=== PATIENT | male | born 1935 | race Caucasian/White ===

== ENCOUNTER 2019-10-07 12:30 | Outpatient (RCR) | payer MEDICARE, SELFPAY ==
--- NOTE | 2019-07-06 14:36 | PTOPEVAL ---
Thank you for referring Armen Felipe to [facility]. He has been scheduled for Physical therapy 2x/week for 4 weeks. Please review, sign, date and return this plan of care JENNA. I agree with and certify that the following plan of care is medically necessary. Referring Physician Date *PT Outpatient Evaluation Start: 07/06/19 13:33 Freq: Status: Active Protocol: Document 07/06/19 13:35 MASON (Rec: 07/06/19 14:13 MASON [id number]) Therapy Assessment Status Assessment Status Assessment Status Evaluation Outpatient Past Medical History Neurological History Hx Cerebrovascular Accident (CVA) Yes: May 20, 2019 Cardiovascular History Hx Coronary Artery Bypass Graft Yes: 1992 Pain History History of Any Previous or Ongoing No Significant History Instance of Pain Evaluation Information Problem Diagnosis CVA Onset 05/20/19 Subjective Information Had a CVA on 05/20/19. He Query Text:As Reported By Patient/ participated in [facility] in [facility]. He has been home for a couple of weeks. No home health therapy. Feels as though his walking has recovered very well. He was cooking prior to the CVA and he no longer cooks because of lack of control of right side. No stairs throughout the home, but two to enter. States that he does them well. Pain Assessment Timing of Pain Assessment Timing of Pain Assessment Assessment Self Report Self Report Pain Level 0 Pain Score Pain Score 0: Self Report Lower Extremity Muscle Strength Testing General Lower Extremity Strength Reason Not Measured WNL/Left,WNL/Right Gross Lower Extremity Strength positive right Trendelenburg Ankle Strength Right Ankle Dorsiflexion Strength 4 Good Balance Assessment Boone Balance Assessment Sitting to Standing Independent w/out Hands Unsupported Stance Ability Safely- 2 minutes Sitting Unsupported, Feet on Floor Safely- 2 minutes Standing to Sitting Assist, Control w/Hands Transfer Ability Safely, Minimal Hand Use Unsupported Stance- Eyes Closed Safely, 10 seconds Unsupported Stance- Feet Together Independent, 1 minute Reaching Forward while Standing Safely, 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
--- NOTE | 2019-07-06 15:56 | OTOPEVAL ---
Thank you for referring this patient to [facility]. Patient will be seen for OP OT 2x/wk for 4 weeks. Please review, sign, date and return this plan of care JENNA. I agree with and certify that the following plan of care is medically necessary. Referring Physician Date *OT Outpatient Evaluation Start: 07/06/19 14:33 Freq: Status: Active Protocol: Document 07/06/19 14:38 KJL (Rec: 07/06/19 15:47 [id number]) Therapy Assessment Status Assessment Status Assessment Status Evaluation Outpatient Past Medical History Neurological History Hx Cerebrovascular Accident (CVA) Yes: May 20, 2019 Cardiovascular History Hx Coronary Artery Bypass Graft Yes: 1992 Pain History History of Any Previous or Ongoing No Significant History Instance of Pain Prior Level of Function Activity Level (Last 3 Months) Hand Dominance Right Activity of Daily Living Ability Independent Indoor/Home Mobility Independent Community Mobility Independent Stairs Ability Independent Functional Cognition (Planning, Shopping Independent , Taking Medications) Cooking Yes Cleaning No Laundry No Shopping Yes Driving Yes Home Setting Home Type House,Single Level Environmental Barriers Davidson, Carpet,Stairs, 2-4 Living Situation With Spouse Support Available Local Family Support Mobility Assistive Devices (Used Last 3 None Months) Bathroom Environment Bathtub, Standard,Tub/Shower, Door Bathing Equipment Grab Bars Toileting Equipment Raised Toilet Seat Grooming Activities of Daily Living None Devices Dressing Activities of Daily Living None Devices Eating Activities of Daily Living None Devices Prior Cognition/Communication Prior Communication Level No Impairment Prior Cognitive Function Able to Function Independently Prior Ability to Handle Finances Independent Comments Additional Prior Level of Function Pt reports lives with spouse Comments in a single level home and is independent prior to CVA with all ADLs and IADLs including cooking, driving, and shopping . Pain Assessment Timing of Pain Assessment Timing of Pain Assessment Assessment Self Report Self Report Pain Level 0 Pain Score Pain Score 0: Self Report Upper Extremity Range of Motion General Upper
--- NOTE | 2019-07-14 09:08 | PCPTNOTE ---
Patient called & cancelled scheduled appointment this date due to weather.
--- NOTE | 2019-07-14 10:21 | PCOTNOTE ---
Pt called and cancelled appt this date / too cold weather to come out.
--- NOTE | 2019-07-29 13:17 | PTOPEVAL ---
PHYSICAL THERAPY PLAN OF CARE UPDATE AND PROGRESS REPORT Thank you for referring this patient to [facility]. Please review, sign, date and return this plan of care JENNA. I agree with and certify that the following plan of care is medically necessary. Referring Physician Date Attending Provider: Robert Butler DO Therapy Assessment Status Assessment Status Assessment Status Re-evaluation Outpatient Past Medical History Neurological History Hx Cerebrovascular Accident (CVA) Yes: May 20, 2019 Cardiovascular History Hx Coronary Artery Bypass Graft Yes: 1992 Pain History History of Any Previous or Ongoing No Significant History Instance of Pain Problem Diagnosis CVA Onset 05/20/19 Subjective Information Had a CVA on 05/20/19. States Query Text:As Reported By Patient/ that he is pleased with how Family much more he is able to use his hand. He feels as though he always walked pretty well. No pain and no falls. Pain Assessment Self Report Pain Level 0 General Lower Extremity Strength Gross Lower Extremity Strength right LE: 4+/5 throughout; left LE: 5/5 throughout Balance Assessment Franco Balance Assessment Sitting to Standing Independent w/out Hands Unsupported Stance Ability Safely- 2 minutes Sitting Unsupported, Feet on Floor Safely- 2 minutes Standing to Sitting Assist, Control w/Hands Transfer Ability Safely, Minimal Hand Use Unsupported Stance- Eyes Closed Safely, 10 seconds Unsupported Stance- Feet Together Independent, 1 minute Reaching Forward while Standing Safely, 5 inches application support manager Object From Floor Independent/Safe Look Behind Shoulder - Standing Shifts Weight Well Turning 360 Degrees Turns slowly, but safely Unsupported Stance, Alternating Feet on (I)- 8 Steps in 20 secs Stair Unsupported Tandem Stance Small Step- 30 seconds Unilateral Leg Stance Lifts Leg/Holds > 3 secs FRANCO Balance Evaluation Total Score 48/56 Time Up Go Timed Up and Go Test 16seconds Assistive Devices None 5 Time Sit to Stand Time in Seconds 19.97seconds 5 Time Sit to Stand Comments 14.75 WITH armrests Query Text:Normative Data: If Greater Than 15 Seconds, 74% Increase Risk for Recurrent Falls Gait Pattern Assessment Gait Pattern Trendelenburg Gait Gait Pattern Observed Trunk Lateral Lean - Right Other Gait Observations able to walk on heels and toes with supervision to monitor balance 6 Minute Walk Total Distance (feet) 715 Number of Breaks During Test 1 6 Minute Gait Com
--- NOTE | 2019-07-29 14:43 | OTOPEVAL ---
OT re-eval summary 07/29/19 Thank you for referring this patient to [facility]Note 2[facility] Patient will be seen for OT 2x/week for four weeks. Please review, sign, date and return this plan of care JENNA. I agree with and certify that the following plan of care is medically necessary. Referring Physician Date Attending Provider: Robert Butler DO *OT Outpatient Re-Evaluation Evaluation Information Problem Diagnosis CVA Onset May, Additional Evaluation Detail Pt has been attending outpatient Occupational Therapy for the past 4 weeks. During OT, Patient worked on RUE hand, wrist, and arm strength, coordination, fine motor skills, and education on use of AE techniques in order to increase participation in functional ADLs and activities . Patient has been compliant in competing all HEP programs provided. Subjective Information Pt reports having increased Query Text:As Reported By Patient/ movement and strength in hand Family especially with being able to eat utilizing built up utensils, dressing including pulling pants up, zippers, and tying shoes. Patient reports wanting to continue to improve hand coordination in order to button shirts and pants better. Pain Assessment Timing of Pain Assessment Timing of Pain Assessment Assessment Self Report Self Report Pain Level 0 Pain Score Pain Score 0: Self Report Upper Extremity Range of Motion General Upper Extremity Range of Motion Reason Not Measured WNL/Left,WNL/Right Gross Upper Extremity Range of Motion RUE gross AROM is WNL. All Comments movements except for wrist. Wrist Range of Motion Right Wrist Flexion - Active 45 Wrist Extension - Active 45 Wrist Radial Deviation - Active 20 Wrist Ulnar Deviation - Active 20 Wrist Range of Motion Comments Patient increased wrist flexion from 30* to 45*, wrist extension from 25* to 45*, wrist radial deviation from 10 * to 20*, and ulnar deviation from 15* to 20*. Hand Biztalk Software Developer/Pinch Strength Assessment Hand Right Biztalk Software Developer Strength (lbs) 26 Lateral Pinch Str
--- NOTE | 2019-08-17 10:20 | PCPTNOTE ---
Patient called & cancelled scheduled appointment this date due to inclement weather.
--- NOTE | 2019-08-24 09:57 | PCPTNOTE ---
Patient called & cancelled scheduled appointment this date due to illness.
--- NOTE | 2019-09-09 13:46 | OTOPEVAL ---
OT RE-EVALUATION REPORT 09/09/2019 Thank you for referring this patient to [facility]. As described below, Armen is making progress toward strength, ROM, and coordination goals. Continued skilled OT is indicated 2x/week for 4 weeks. Please review, sign, date and return this plan of care JENNA. I agree with and certify that the following plan of care is medically necessary. Referring Physician Date Attending Provider: Robert Butler DO *OT Outpatient Re-Evaluation Re-Evaluation Information Problem Diagnosis s/p CVA Onset May, Additional Evaluation Detail Pt has been attending outpatient OT since 07/06/19. During OT, Patient worked on RUE hand, wrist, and arm strength, coordination, fine motor skills, and education on use of AE techniques in order to increase participation in functional ADLs and activities . Patient has been compliant in competing all HEP programs provided. Subjective Information Pt. reports improved Query Text:As Reported By Patient/ flexibility and strength of Family the right hand which has allowed for more independence with gross gripping tasks. He continues to have difficulty with buttoning shirts and pants, however he is now able to do some of them requiring less assist than a month ago. He continues to use his left hand for feeding. Pain Assessment Timing of Pain Assessment Timing of Pain Assessment Re-assessment Self Report Self Report Pain Level 0 Pain Score Pain Score 0: Self Report Upper Extremity Range of Motion General Upper Extremity Range of Motion Gross Upper Extremity Range of Motion Shoulder, elbow, and forearm Comments are WNL. Wrist Range of Motion Right Wrist Flexion - Active 45 Wrist Flexion - Passive 65 Wrist Extension - Active 50 Wrist Extension - Passive 60 Wrist Radial Deviation - Active 20 Wrist Ulnar Deviation - Active 20 Wrist Range of Motion Comments Wrist flexion remained at 45*, wrist extension increased from 45* to 50*, RD and UD remain WNL. Upper Extremity Muscle Strength Testing Elbow/Forearm Right Elbow Flexion Strength 4+ Good + Elbow Extension Stre
--- NOTE | 2019-09-09 14:29 | PTOPEVAL ---
PHYSICAL THERAPY DISCHARGE REPORT Thank you for referring this patient to [facility]. Armen will be discharged from PT at this time; however, I do recommend montioring blood pressure daily and reporting to already scheduled director religious education appointment. Please review, sign, date and return this plan of care JENNA. I agree with and certify that the following plan of care is medically necessary. Referring Physician Date Attending Provider: Robert Butler DO Neurological History Hx Cerebrovascular Accident (CVA) Yes: May 20, 2019 Cardiovascular History Hx Coronary Artery Bypass Graft Yes: 1992 Pain History History of Any Previous or Ongoing No Significant History Instance of Pain Evaluation Information Problem Diagnosis s/p CVA Onset May, Additional Evaluation Detail vitals: pulse 118bpm BP: 103/49 --reports he is feeling fine, but about 3 weeks ago he was taking a shower and felt as though he was going to pass out. He rested for an hour and recovered Subjective Information Armen feels as though he is Query Text:As Reported By Patient/ doing pretty well. 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 Self Report Pain Level 0 Pain Score Pain Score 0: Self Report Gross Lower Extremity Strength right LE: 4+/5 throughout; left LE: 5/5 throughout Balance Assessment Franco Balance Assessment Sitting to Standing Independent w/out Hands Unsupported Stance Ability Safely- 2 minutes Sitting Unsupported, Feet on Floor Safely- 2 minutes Standing to Sitting Assist, Control w/Hands Transfer Ability Safely, Minimal Hand Use Unsupported Stance- Eyes Closed Safely, 10 seconds Unsupported Stance- Feet Together Independent, 1 minute Reaching Forward while Standing Safely, 5 inches checkout supervisor Object From Floor Independent/Safe Look Behind Shoulder - Standing Shifts Weight Well Turning 360 Degrees Turns slowly, but safely Unsupported Stance, Alternating Feet on (I)- 8 Steps in 20 secs Stair Unsupported Tandem Stance Small Step- 30 seconds Unilateral Leg Stance Lifts Leg/Holds > 3 secs FRANCO Balance Evaluation Total Score 48/56 Time Up Go (TUG) 13seconds Assistive Devices None Comments improved from 16seconds 5 Time Sit to Stand Time in Seconds 16.72 5 Time Sit to Stand Comments 14.31 WITH armrests Query Text:Normative Data: If Greater with
--- NOTE | 2019-10-07 14:20 | OTOPEVAL ---
OCCUPATIONAL THERAPY RE-EVALUATION & DISCHARGE NOTE 10/07/2019 Thank you for referring this patient to [facility]. As described below, the patient appears to have reached a progress plateau with OT. D/C today with patient independent with HEP. Please review, sign, date and return this plan of care JENNA. I agree with and certify that the following plan of care is medically necessary. Referring Physician Date Attending Provider: Robert Butler DO *OT Outpatient Re-Evaluation Evaluation Information Problem Diagnosis s/p CVA Onset May, Additional Evaluation Detail Armen has been attending outpatient OT since 07/06/19. OT has been focusing on (R) UE strength and functional coordination for improved abilities with gripping, pinching, lifting, and carrying during ADLs. Subjective Information Patient reports improved Query Text:As Reported By Patient/ abilities with picking up Family objects, stating, I can berry picker anything I try to berry picker. He notes that he can now berry picker glasses of water and buttoning buttons. He continues to have difficulty trying to use a fork to feed himself with the right hand. Pain Assessment Timing of Pain Assessment Timing of Pain Assessment Re-assessment Self Report Self Report Pain Level 0 Pain Score Pain Score 0: Self Report Upper Extremity Range of Motion General Upper Extremity Range of Motion Reason Not Measured WNL/Right Upper Extremity Muscle Strength Testing Scapular/Shoulder Right Shoulder Flexion Strength 4- Good - Shoulder Extension Strength 4 Good Elbow/Forearm Right Elbow Flexion Strength 4+ Good + Elbow Extension Strength 4+ Good + Forearm Pronation Strength 4+ Good + Forearm Supination Strength 4+ Good + Wrist Strength Right Wrist Flexion Strength 4+ Good + Wrist Extension Strength 4- Good - Wrist Strength Comments Flexion improved from 4/5 and extension remained functional and slightly weak at 4-/5. He is currently independent with wrist strengthening with 2# free weight. Hand Python Architect/Pinch Strength Assessment Hand Right Python Architect Strength (lbs) 26.33 Lateral Pinch Strength (lbs) 6 Palmar Pinch Strength (lbs) 4.66 Tip Pinch Strength (lbs)
== END 2019-10-07 23:59 | disposition home or self-care (01) ==
LOC: ANHOT 12:30
PROVIDERS: PCP Internal Medicine; Visit Provider Internal Medicine
DX: I63.412 Cerebral infarction due to embolism of left middle cerebral artery (principal)
CPT/HCPCS: 36415; 71046; 80048; 97110; 97112; 97116; 97140; 97161; 97162; 97530

== ENCOUNTER 2019-11-25 14:07 | Outpatient (CLI) | payer MEDICARE, SELFPAY ==
--- NOTE | ~2019-11-25 | XR_ITS ---
EXAMINATION: XR chest 2V DATE: 11/25/2019 14:31 INDICATION: Other forms of dyspnea TECHNIQUE: PA and lateral views of the chest are obtained. COMPARISON: 09/16/2019 FINDINGS: There are small, stable pleural effusions, left greater than right. Stable cardiomegaly is noted. A mild diffuse interstitial pattern persists without significant change. There is no pneumotho rax. Median sternotomy wires are consistent with prior cardiac surgery. There is mild lumbar spondylo sis. IMPRESSION: 1. Cardiomegaly with mild pulmonary edema. 2. Small, stable pleural effusions. Reviewed, dictated and finalized at location B.
== END 2019-11-25 14:08 | disposition home or self-care (01) ==
PROVIDERS: PCP Internal Medicine; Visit Provider Internal Medicine Cardiovascular Disease
DX: R06.09 Other forms of dyspnea (principal); J90 Pleural effusion, not elsewhere classified; I51.7 Cardiomegaly
CPT/HCPCS: 71046

== ENCOUNTER 2019-12-02 13:33 | Emergency (ER) | payer MEDICARE, SELFPAY ==
--- NOTE | ~2019-12-02 | CT_ITS ---
EXAMINATION: CT brain wo con INDICATION: Headache COMPARISON: None TECHNIQUE: Standard unenhanced head CT. The dose-length product (DLP) was 605.33 mGy-cm. The mA was a djusted according to patient size. Iterative reconstruction technique was employed. FINDINGS: There is no acute intraparenchymal hemorrhage. No evidence of mass lesion. There is low att enuation with loss of caceres-white differentiation in the left frontal and parietal lobes. There is mil d periventricular and subcortical hypodensity probably related to small vessel ischemic disease. Ther e is mild prominence of the sulci and ventricles related to cerebral atrophy. Intracranial calcified cerebral atherosclerosis is noted. There are no extra-axial collections. There is no mass effect or m idline shift. The orbits and soft tissues are unremarkable. There is mild mucosal thickening of the paranasal sinuses. IMPRESSION: 1. Low attenuation in the left frontal and parietal lobes which could reflect subacute infarct. 2. Age related findings. Reviewed, dictated and finalized at location A. IMPRESSION: 1. Low attenuation in the left frontal and parietal lobes which could reflect s ubacute infarct. 2. Age related findings.
--- NOTE | ~2019-12-02 | XR_ITS ---
EXAMINATION: XR chest 1V portable EXAM DATE: 12/02/2019 15:36 INDICATION: Shortness of breath, generalized weakness. TECHNIQUE: Portable AP frontal chest x-ray was obtained. Comparison is made to prior examination from 11/25/2019. FINDINGS: There is chronic left pleural blunting. Sternotomy wires are present without findings to amaya ggest sternal dehiscence. The cardiomediastinal silhouette is prominent but magnified on this AP tech nique. Cardiac silhouette is stable in size compared to prior exam. No confluent consolidation or pne umothorax. The bones are osteopenic. There are bony degenerative changes. IMPRESSION: 1. No acute cardiopulmonary findings. Reviewed, dictated and finalized at location A.
[2019-12-02 13:41] VITALS: BP 128/68; PULSE 86; RESP 19; TEMP 36.5; O2SAT 100
--- NOTE | 2019-12-02 14:04 | ECG_ITS ---
Measurements Intervals [place] Rate: 80 P: SD: 0 QRS: -9 QRSD: 190 T: 152 QT: 464 QTc: 538 Interpretive Statements ATRIAL FIBRILLATION VENTRICULAR PREMATURE COMPLEX LEFT BUNDLE BRANCH BLOCK ABNORMAL ECG Electronically Signed On 12-02-2019 14:12:50 CDT by Darrel Wade D.O.
--- NOTE | 2019-12-02 14:12 | ED.GENADULT ---
HPI - General Adult General Chief complaint: Weakness Stated complaint: chest pain, sob Time Seen by Provider: 12/02/19 14:01 Source: patient and RN notes reviewed Mode of arrival: ambulatory Limitations: no limitations History of Present Illness HPI narrative: A 84 y/o male presents to the ED with worsening generalized weakness for the past couple days. He states that his lens grinder, Dr. Wade, increased his Lasix and started him on a new medication last week. He reports that he is unsure of what the new medication was but that it made him dizzy and he fell 4 days ago, so he stopped taking it which resolved his dizziness. He notes some associated SOB and mild nausea. He denies taking anything for his symptoms. He also denies any HI, LOC, fevers, cough, numbness, vomiting, diarrhea, or CP. MD complaint: Generalized weakness Onset (ago): day(s) (a couple) Pain Consistency: other (worsening) Associated symptoms: nausea/vomiting (no vomiting), shortness of breath and other (dizziness (resolved)) Treatments prior to arrival: none Related Data Home Medications Medication Instructions Recorded Confirmed apixaban 5 mg tablet 5 mg PO BID 07/10/19 11/25/19 atorvastatin 40 mg tablet 40 mg PO DAILY 07/10/19 11/25/19 doxazosin 8 mg tablet 8 mg PO DAILY 07/10/19 11/25/19 folic acid 20 mg capsule See Rx Instructions PO DAILY 07/17/19 11/25/19 garlic 300 mg PO DAILY 07/17/19 11/25/19 omega-3 fatty acids 500 mg PO DAILY 07/17/19 11/25/19 Allergies Allergy/AdvReac Type Severity Reaction Status Date / Time DEEPIKA Inhibitors Allergy Unknown Unknown Verified 11/25/19 13:16 Review of Systems Review of Systems: Narrative: CONSTITUTIONAL: Denies fever. Reports generalized weakness. CARDIOVASCULAR: Denies chest pain. RESPIRATORY: Denies cough. Reports dyspnea. GASTROINTESTINAL: Denies vomiting, or diarrhea. Reports some mild nausea. NEUROLOGIC: Denies HI, LOC, or numbness. Reports dizziness that has resolved. All systems reviewed & are unremarkable except as noted in HPI and below PMFSH Past Medical History Medical History (Updated 12/02/19 @ 15:58 by Rosangela Monge MD) Anemia ASHD (arteriosclerotic heart disease) Benign prostatic hyperplasia with lower urinary tract symptoms Bronchitis CAD (coronary artery disease), 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 CHF (congestive heart failure) Chronic systolic heart failure GARCIA (dyspnea on exertion) FH: coronary artery bypass surgery History of GI bleed History of heart attack History of inguinal hernia Hx of fracture of rib Hypertension Intermittent palpitations Iron deficiency anemia Mixed hyperlipidemia LEANN (obstructive sleep apnea) Other persistent atrial fibrillation Prediabetes Psoriasis Stage 1 chronic kidney disease Stroke Stroke due to embolism Vitamin B12 deficiency Surgical History Surgical History (Updated 12/02/19 @ 15:14 by Dipak Birmingham) Failed CABG (coronary artery bypass graft) History of inguinal hernia repair Hx of CABG Hx of cardiac cath Hx of heart artery stent Family History Family History Father Family history of diabetes mellitus in first degree relative Social History Social History (Updated 12/02/19 @ 15:14 by Dipak Birmingham) Smoking status: Never smoker Second hand tobacco smoke exposure: Yes Alcohol intake: never Gender identity (if verbalized by the patient): Male Exam Narrative: Exam Narrative: GENERAL: Awake, alert, conversant HEAD: Normocephalic, atraumatic. EYES: EOMI, conjunctiva clear ENT: Nares patent. Mucous membranes moist. NECK: Full range of motion CHEST: No respiratory distress, speaking in full sentences, mild tachypnea. HEART: Regular rate ABDOMEN: Non distended, non tender EXTREMITIES: Normal range of motion. No edema. SKIN: Warm, dry, no rash. Pallor. NEURO: No focal deficits. Alert and oriented x3. Course C
[2019-12-02 14:40] LABS: Basophils Percent Auto 0.5 % (0.2-1.2); Eosinophils Absolute Auto 0.3 K/mm3 (0-0.3); Hematocrit 31.3 % (42.0-52.0); Hemoglobin 10.5 g/dL (14.0-18.0); Immature Granulocyte Absolute 0.02 K/mm3 (0.00-0.031); Immature Granulocyte Percent A 0.3 % (0-0.5); Lymphocytes Absolute Auto 2.03 K/mm3 (0.9-3.2); Lymphocytes Percent Auto 27.7 % (18.3-44.2); Mean Corpuscular HGB Conc 33.5 g/dl (32-36); Mean Corpuscular Hemoglobin 35.4 pg (26-34); Mean Corpuscular Volume 105.4 fl (80-100); Mean Platelet Volume 12.3 fl (7.4-10.4); Monocytes Absolute Auto 0.6 K/mm3 (0.1-0.6); Monocytes Percent Auto 7.5 % (2.6-8.5); Neutrophils Absolute Auto 4.4 K/mm3 (1.3-6.7); Platelet Count Result 314 k/mm3 (150-375); Red Blood Count 2.97 M/mm3 (4.6-6.20); Red Cell Distribution Width 14.9 % (11.5-14.5); White Blood Count 7.3 K/mm3 (4.5-10.0)
[2019-12-02 14:45] VITALS: RESP 18
[2019-12-02 14:49] LABS: Alveolar/Arterial O2 Gradient 20.6 mmHg; Base Excess ABG 4.5 mEq/l (+/-2.0); Carboxyhemoglobin 0.2 % THb (0-2.0); Fractional Inspired Oxygen 21 %; HCO3 ABG 29.1 mEq/l (22.0-26.0); Methemoglobin ABG 0.1 %THb (0-1.5); Oxygen Content ABG 14.8 %vol (16.0-22.0); Oxygen Saturation ABG 95.8 % (95.0-100.0); Oxyhemoglobin 93.3 % THb (90.0-100.0); PCO2 ABG 43.5 mmHg (35.0-45.0); PO2 FiO2 Ratio Arterial Blood 3.67 %; Reduced Hemoglobin 6.4 %THb (0-5.0); Total Hemoglobin 11.2 g/dL (12.0-18.0); pH ABG 7.444 (7.350-7.450)
[2019-12-02 14:50] LABS: Device ROOM AIR; Modified Allen's Test Pass; Site Drawn LEFT RADIAL
[2019-12-02 14:54] LABS: Add Urine Microscopic? NO; Appearance Urine Clear (Clear); Bilirubin Urine Negative (Negative); Blood Urine Negative (Negative); Color Urine Yellow (Yellow); Glucose Urine UA Negative (Negative); Ketones Urine Negative (Negative); Leukocyte Esterase Ur Negative LEU/UL (Negative); Nitrate Urine Negative (Negative); Protein Urine Negative (Negative); Specific Grav Ur 1.013 (1.001-1.035); Urobilinogen Urine Negative mg/dL (<2.0)
[2019-12-02] MEDS: ONDANSETRON INJ 4 MG/2 ML VIAL IV PUSH (14:55)
[2019-12-02] MEDS: SODIUM CHLORIDE 0.9% IV 1,000 ML 999 ML IV CONT (14:55)
--- NOTE | 2019-12-02 15:04 | PC.NURSE ---
Called lab to add on CMP, LDH, C-reactive Protein, BNP.
[2019-12-02 15:16] LABS: Alanine Aminotransferase 15 U/L (4-50); Albumin Level 3.8 g/dL (3.5-5.1); Alkaline Phosphatase 124 U/L (38-126); Aspartate Amino Transferase 34 U/L (17-59); Bilirubin,Total 0.6 mg/dL (0.2-1.3); Blood Urea Nitrogen 38 mg/dL (9-20); CRP 2.1 mg/dL (<1.0); Calcium 8.9 mg/dL (8.4-10.2); Carbon Dioxide 30 mmol/L (22-30); Chloride 97 mmol/L (98-107); Estimated CRCL calculation 28 ml/min; Estimated Glomerular Filt Rate 39; Glucose 105 mg/dL (75-110); Lactate Dehydrogenase 498 U/L (313-618); Potassium 3.6 mmol/L (3.4-5.0); Sodium 137 mmol/L (137-145)
[2019-12-02 15:18] LABS: INR 1.4; Prothrombin Time 17.1 Seconds (11.1-14.7)
[2019-12-02 15:19] LABS: Partial Thromboplastin Time 35.9 SECONDS (22.3-36.8)
[2019-12-02 15:26] LABS: NT Pro B Type Natriuretic Pept 1580 PG/ML (5-100); Troponin I 0.016 ng/mL (0.000-0.034)
[2019-12-02 16:33] VITALS: BP 115/57; PULSE 81; RESP 27; O2SAT 98
== END 2019-12-02 16:38 | disposition home or self-care (01) ==
PROVIDERS: Emergency Provider Emergency Medicine; PCP Internal Medicine
DX: E86.0 Dehydration (principal); I25.10 Atherosclerotic heart disease of native coronary artery without angina pectoris; Z95.1 Presence of aortocoronary bypass graft; Z86.73 Personal history of transient ischemic attack (TIA), and cerebral infarction without residual deficits; I25.2 Old myocardial infarction; I11.0 Hypertensive heart disease with heart failure; I50.22 Chronic systolic (congestive) heart failure; D50.9 Iron deficiency anemia, unspecified; G47.33 Obstructive sleep apnea (adult) (pediatric); I48.19 Other persistent atrial fibrillation; Z79.01 Long term (current) use of anticoagulants; E53.8 Deficiency of other specified B group vitamins; Z95.5 Presence of coronary angioplasty implant and graft; I49.3 Ventricular premature depolarization; I44.7 Left bundle-branch block, unspecified
CPT/HCPCS: 36415; 36600; 70450; 71045; 80053; 81003; 82375; 82805; 83050; 83615; 83880; 84484; 85025; 85610; 85730; 86140; 87804; 93005; 96361; 96374; 99284; J2405; J7030

== ENCOUNTER 2020-01-08 13:04 | Outpatient (CLI) | payer MEDICARE, SELFPAY ==
[2020-01-08 13:33] LABS: Alanine Aminotransferase 17 U/L (4-50); Albumin Level 3.6 g/dL (3.5-5.1); Alkaline Phosphatase 126 U/L (38-126); Aspartate Amino Transferase 28 U/L (17-59); Bilirubin,Total 0.7 mg/dL (0.2-1.3); Blood Urea Nitrogen 29 mg/dL (9-20); Calcium 8.9 mg/dL (8.4-10.2); Carbon Dioxide 27 mmol/L (22-30); Chloride 105 mmol/L (98-107); Estimated Glomerular Filt Rate 48; Glucose 103 mg/dL (75-110); Potassium 4.1 mmol/L (3.4-5.0); Sodium 138 mmol/L (137-145)
--- NOTE | 2020-01-08 13:41 | ECHO_ITS ---
Patient Info Name: Armen Felipe Age: 84 years : 1935 Gender: Male Ht: 68 in Wt: 178 lbs BSA: 1.98 m2 HR: 75 bpm BP: 125 / 70 mmHg Heart Rhythm: Atrial Fibrillation Technical Quality: Good Exam Date: 01/08/2020 2:07 PM Exam Location: [facility] Pulmonary Patient Status: Outpatient Admit Date: 01/08/2020 Staff Ordering Physician: Darrel Wade DO Food Handler: Oriana Corea RDCS Attending Provider: Darrel Wade DO Referring Physician: Mauro GUEVARA; Exam Type: CA echo doppler color flow Study Info Indications - chronic systolic congestive heaRT failure Complete two-dimensional, color flow and Doppler transthoracic echocardiogram is performed. Summary 1. Left ventricular chamber dimension is moderately enlarged. 2. Left ventricular systolic function is severely reduced, estimated at 30-35%. 3. Left ventricular septal wall motion is abnormal with septal motion related to bundle branch block. 4. The left ventricular diastolic function is abnormal. 5. E/e' 22 is significantly elevated. 6. Patient is in atrial fibrillation. 7. Left atrial chamber dimension is severely enlarged. 8. Right atrial chamber dimension is mildly enlarged. 9. There is moderate aortic valve sclerosis. 10. There is mild aortic valve regurgitation. 11. The mitral valve has mildly thickened leaflets and moderately calcified annulus. 12. There is mild to moderate mitral valve regurgitation. 13. There is mild tricuspid valve regurgitation. 14. Mild pulmonary hypertension, estimated pulmonary arterial systolic pressure is 43 mmHg. 15. There is trace pulmonic regurgitation. Left Ventricle Patient is in atrial fibrillation. E/e' 22 is significantly elevated. Left ventricular chamber dimension is moderately enlarged. Left ventricular systolic function is severely reduced, estimated at 30-35%. Left ventricular septal wall motion is abnormal with septal motion related to bundle branch block. The left ventricular diastolic function is abnormal. Right Ventricle Right ventricular chamber dimension is normal. Right ventricular systolic function is normal. Left Atria Left atrial chamber dimension is severely enlarged. Right Atria Right atrial chamber dimension is mildly enlarged. Aortic Valve The aortic valve is trileaflet. There is moderate aortic valve sclerosis. There is no aortic valve stenosis. There is mild aortic valve regurgitation. Pulmonic Valve There is trace pulmonic regurgitation. Mitral Valve The mitral valve has mildly thickened leaflets and moderately calcified annulus. There is no mitral valve stenosis. There is mild to moderate mitral valve regurgitation. Tricuspid Valve There is mild tricuspid valve regurgitation. Mild pulmonary hypertension, estimated pulmonary arterial systolic pressure is 43 mmHg. Pericardium/Pleural There is no pericardial effusion. Inferior Vena Cava Normal inferior vena cava with >50% collapse upon inspiration consistent with normal right atrial pressure, 5 mmHg. Aorta The aortic root size at the sinus of Valsalva is normal. Left Ventricular Outflow Tract Name Value Normal LVOT 2D LVOT Diameter 2.1 cm LVOT Doppler
== END 2020-01-08 13:05 | disposition home or self-care (01) ==
PROVIDERS: PCP Internal Medicine; Visit Provider Internal Medicine Cardiovascular Disease
DX: I50.22 Chronic systolic (congestive) heart failure (principal); I51.7 Cardiomegaly; I44.7 Left bundle-branch block, unspecified; I48.91 Unspecified atrial fibrillation; I08.3 Combined rheumatic disorders of mitral, aortic and tricuspid valves; I27.20 Pulmonary hypertension, unspecified
CPT/HCPCS: 36415; 80053; 83735; 84443; 93306

== ENCOUNTER 2020-01-15 08:44 | Outpatient (CLI) | payer MEDICARE, SELFPAY ==
--- NOTE | ~2020-01-15 | NM_ITS ---
EXAMINATION: NM jyoti stress w perfusion DATE: 01/15/2020 13:14 INDICATION: Coronary atherosclerosis. Congestive heart failure. TECHNIQUE: Rest images were obtained following intravenous administration of mCi Tc99m tetrofosmin (M yoview). The patient was infused intravenously with Lexiscan (regadenoson). Then, mCi Tc99m tetrofosm in (Myoview) was administered intravenously, and stress images were obtained. Data was reconstructed into short axis and horizontal and vertical long axis SPECT images. Gated SPECT images were also obta ined. COMPARISON: None. FINDINGS: There is a moderate-sized, moderate severity, fixed perfusion defect involving the left park tricular apex, apical anterior and apical septal segments, and mid anteroseptal segment, consistent w ith infarct. No reversible component to suggest ischemia.. There is apical and septal hypokinesis. Left ventricular ejection fraction measures 41%. IMPRESSION: 1. Moderate-sized area of moderate infarct involving left ventricular apex, apical anterior and apica l septal segments, and mid anteroseptal segment. 2. Apical and septal hypokinesis with left ventricular ejection fraction measuring 41%. Reviewed, dictated and finalized at location A. IMPRESSION: 1. Moderate-sized area of moderate infarct involving left ventricular apex, api ye anterior and apical septal segments, and mid anteroseptal segment. 2. Apical and septal hypokinesis with left ventricular ejection fraction measur ing 41%.
--- NOTE | 2020-01-15 10:07 | EST_ITS ---
Patient Info Name: Armen Felipe Age: 84 years : 1935 Gender: Male Ht: 68 in Wt: 175 lbs BSA: 1.97 m2 Exam Date: 01/15/2020 10:20 AM Exam Location: [facility] Stress Patient Status: Outpatient Admit Date: 01/15/2020 Staff Ordering Physician: Darrel Wade DO Attending Provider: Darrel Wade DO Exercise Technologist: Niecy Hackett RDCS Exercise Physician: Darrel Wade DO Exam Type: CA stress jyoti w NM Study Info Indications I50.22 - Chronic systolic (congestive) heart failure A regadenoson stress test was performed. Summary 1. 1. Inconclusive lexiscan stress test for ischemic ST changes by ECG criteria due to baseline LBBB. 2. 2. Stable hemodynamics throughout the test. 3. 3. Nuclear scan to follow and will be reported separately. Please correlate with it. 4. 4. Patient informed of the above results. Protocol: Lexiscan Stress ECG Details Stage: REST Duration (min): 4 min : 19 sec HR (bpm): 71 SBP (mmHg): 108 DBP (mmHg): 57 Stage: REST Duration (min): 30 min : 6 sec HR (bpm): 72 SBP (mmHg): 108 DBP (mmHg): 57 Stage: STAGE 1 Duration (min): 1 min : 0 sec HR (bpm): 71 SBP (mmHg): 104 DBP (mmHg): 64 Stage: RECOVERY Duration (min): 1 min : 0 sec HR (bpm): 75 SBP (mmHg): 95 DBP (mmHg): 57 Stage: RECOVERY Duration (min): 2 min : 0 sec HR (bpm): 71 SBP (mmHg): 95 DBP (mmHg): 57 Stage: RECOVERY Duration (min): 3 min : 0 sec HR (bpm): 70 SBP (mmHg): 84 DBP (mmHg): 54 Stage: RECOVERY Duration (min): 4 min : 0 sec HR (bpm): 71 SBP (mmHg): 84 DBP (mmHg): 54 Stage: RECOVERY Duration (min): 5 min : 0 sec HR (bpm): 69 SBP (mmHg): 89 DBP (mmHg): 53 Stage: RECOVERY Duration (min): 6 min : 0 sec HR (bpm): 72 SBP (mmHg): 89 DBP (mmHg): 53 Stage: RECOVERY Duration (min): 7 min : 0 sec HR (bpm): 79 SBP (mmHg): 85 DBP (mmHg): 45 Stage: RECOVERY Duration (min): 8 min : 0 sec HR (bpm): 75 SBP (mmHg): 85 DBP (mmHg): 45 Stage: RECOVERY Duration (min): 8 min : 44 sec HR (bpm): 74 SBP (mmHg): 90 DBP (mmHg): 47 Rest HR: 72 bpm Peak HR: 83 bpm Rest Sys BP: 108 mmHg Peak Sys BP: 104 mmHg Max Pred HR: 136 bpm % Max Pred HR: 61 % Target HR: 116 bpm Max RPP: 8,632 bpm*mmHg Termination Reason: Completed protocol Cardiac Symptoms: Shortness of breath Total Time: 1 min : 0 sec Rest Albrecht BP: 57 mmHg Peak Albrecht BP: 64 mmHg Total Dose: 0.4 mg Resting ECG Atrial fibrillation, LBBB. Stress ECG No ST changes. Arrhythmias None. Report Signatures
== END 2020-01-15 08:45 | disposition home or self-care (01) ==
LOC: ANHCARD 08:46
PROVIDERS: PCP Internal Medicine; Visit Provider Internal Medicine Cardiovascular Disease
DX: I50.22 Chronic systolic (congestive) heart failure (principal); I21.9 Acute myocardial infarction, unspecified; I44.7 Left bundle-branch block, unspecified
CPT/HCPCS: 78452; 93017; A9502; J2785

== ENCOUNTER 2020-05-26 14:03 | Outpatient (CLI) | payer MEDICARE, SELFPAY ==
[2020-05-26 14:46] LABS: Hematocrit 28.3 % (42.0-52.0); Hemoglobin 9.2 g/dL (14.0-18.0)
[2020-05-26 14:54] LABS: Hemoglobin A1C 5.6 % (<5.7)
[2020-05-26 15:03] LABS: Alanine Aminotransferase 17 U/L (4-50); Albumin Level 3.6 g/dL (3.5-5.1); Alkaline Phosphatase 105 U/L (38-126); Anion Gap 4 mmol/L (8-16); Aspartate Amino Transferase 29 U/L (17-59); Bilirubin,Total 0.5 mg/dL (0.2-1.3); Blood Urea Nitrogen 34 mg/dL (9-20); Carbon Dioxide 28 mmol/L (22-30); Chloride 109 mmol/L (98-107); Cholesterol 171 mg/dL (0-200); Estimated Glomerular Filt Rate 39; Glucose 100 mg/dL (75-110); HDL Direct 37 mg/dL; Potassium 4.8 mmol/L (3.4-5.0); Sodium 141 mmol/L (137-145); Triglycerides 69 mg/dL (<150)
[2020-05-26 15:14] LABS: LDL Cholesterol Direct 94 mg/dL
== END 2020-05-26 14:04 | disposition home or self-care (01) ==
PROVIDERS: PCP Internal Medicine; Visit Provider Internal Medicine
DX: D64.9 Anemia, unspecified (principal); N17.9 Acute kidney failure, unspecified; I10 Essential (primary) hypertension; R73.03 Prediabetes; E78.5 Hyperlipidemia, unspecified
CPT/HCPCS: 36415; 80053; 80061; 82607; 83036; 85014; 85018

== ENCOUNTER 2020-06-13 16:43 | Outpatient (CLI) | payer MEDICARE, SELFPAY ==
[2020-06-13 17:51] LABS: Anion Gap 7 mmol/L (8-16); Blood Urea Nitrogen 32 mg/dL (9-20); Calcium 8.6 mg/dL (8.4-10.2); Carbon Dioxide 28 mmol/L (22-30); Chloride 104 mmol/L (98-107); Estimated Glomerular Filt Rate 34; Glucose 103 mg/dL (75-110); Sodium 139 mmol/L (137-145)
== END 2020-06-13 16:44 | disposition home or self-care (01) ==
LOC: ANHLAB 16:48
PROVIDERS: PCP Internal Medicine
DX: I25.5 Ischemic cardiomyopathy (principal); N17.9 Acute kidney failure, unspecified
CPT/HCPCS: 36415; 80048

== ENCOUNTER 2020-08-19 16:36 | Inpatient (IN) | payer MEDICARE, SELFPAY ==
[2020-08-19] VITALS (43 sets, daily range): BP systolic 96–131; BP diastolic 42–93; PULSE 79–115; RESP 18–30; TEMP 36.1–37.5; O2SAT 84–100; BMI 24.5
--- NOTE | ~2020-08-19 | XR_ITS ---
EXAMINATION: XR chest 1V portable EXAM DATE: 08/21/2020 20:33 INDICATION: fever TECHNIQUE: Portable AP frontal chest x-ray was obtained. Comparison is made to prior examination from 08/19/2020. FINDINGS: There is extensive bilateral acute airspace disease, right midlung zone, left mid and lower lung zone predominant. This appears to have progressed compared to prior examination. Probably infec tion. Edema less likely. No pneumothorax. There is probable small to moderate left pleural effusion. Cardiomegaly and pulmonary vascular congestion. Sternotomy wires are present without findings to sugg est sternal dehiscence. The bones are osteopenic. There are bony degenerative changes. IMPRESSION: 1. Worsening acute airspace disease probably pneumonia. 2. Small to moderate left pleural effusion. Reviewed, dictated and finalized at location A. ING EQUIPMENT OPERATOR
--- NOTE | ~2020-08-19 | XR_ITS ---
EXAMINATION: XR chest 1V portable EXAM DATE: 08/19/2020 17:53 INDICATION: Shortness of breath for 6 months. History of stroke, hypertension, CHF. TECHNIQUE: Portable AP frontal chest x-ray was obtained. Comparison is made to prior examination from 12/02/2019, 11/25/2019. FINDINGS: Moderate amount of bilateral ill-defined airspace disease likely edema and/or infection. Pl ease clinically correlate. Chronic left pleural blunting. No pneumothorax. Cardiomegaly and pulmonary vascular congestion. Sternotomy wires are present without findings to suggest sternal dehiscence. Th e bones are osteopenic. There are bony degenerative changes. IMPRESSION: 1. Moderate amount of bilateral edema and/or infection. Clinical correlation. 2. Cardiomegaly, congestion. Reviewed, dictated and finalized at location A. OID IOS DEVELOPER
--- NOTE | 2020-08-19 17:05 | PC.NURSE ---
patient here with c/o dyspnea for the last 6 months. see intial notes and assessment. placed on 3L NC on arrival for RA sat 84%. SL inserted. labs drawn. in room. on rn cardiac cath. EKG done. patient and updated on current treatment plan and expected wait time.
--- NOTE | 2020-08-19 17:28 | PC.NURSE ---
resting on stretcher. no distress. alert. oriented. on 3L NC. needs labs drawn. SL inserted but not able to draw blood from the line. patient and updated.
[2020-08-19 17:46] LABS: Basophils Percent Auto 0.4 % (0.2-1.2); Eosinophils Absolute Auto 0.3 K/mm3 (0-0.3); Eosinophils Percent Auto 5.8 % (0-4.4); Hematocrit 28.6 % (42.0-52.0); Immature Granulocyte Absolute 0.02 K/mm3 (0.00-0.031); Immature Granulocyte Percent A 0.4 % (0-0.5); Lymphocytes Absolute Auto 1.35 K/mm3 (0.9-3.2); Lymphocytes Percent Auto 26.8 % (18.3-44.2); Mean Corpuscular HGB Conc 31.5 g/dl (32-36); Mean Corpuscular Hemoglobin 34.6 pg (26-34); Mean Platelet Volume 10.7 fl (7.4-10.4); Monocytes Absolute Auto 0.6 K/mm3 (0.1-0.6); Monocytes Percent Auto 11.1 % (2.6-8.5); Neutrophils Absolute Auto 2.8 K/mm3 (1.3-6.7); Neutrophils Percent Auto 55.5 % (45.5-73.1); Platelet Count Result 195 k/mm3 (150-375); Red Cell Distribution Width 15.9 % (11.5-14.5)
[2020-08-19 17:56] LABS: INR 1.3; Prothrombin Time 17.1 Seconds (11.1-14.7)
[2020-08-19 18:00] LABS: Alanine Aminotransferase 16 U/L (4-50); Albumin Level 3.4 g/dL (3.5-5.1); Alkaline Phosphatase 120 U/L (38-126); Anion Gap 8 mmol/L (8-16); Aspartate Amino Transferase 34 U/L (17-59); Bilirubin,Total 0.6 mg/dL (0.2-1.3); Blood Urea Nitrogen 27 mg/dL (9-20); Calcium 8.4 mg/dL (8.4-10.2); Carbon Dioxide 24 mmol/L (22-30); Chloride 106 mmol/L (98-107); Estimated CRCL calculation 28 ml/min; Estimated Glomerular Filt Rate 38; Glucose 119 mg/dL (75-110); Potassium 3.6 mmol/L (3.4-5.0); Sodium 138 mmol/L (137-145)
--- NOTE | 2020-08-19 18:10 | ED.SOB ---
HPI - SOB/Dyspnea General Chief Complaint: Shortness of Breath/Dyspnea Stated Complaint: sob, Time Seen by Provider: 08/19/20 16:46 Source: patient and family Mode of arrival: wheelchair History of Present Illness HPI Narrative: 85-year-old with a history of hypertension, CAD, anemia, CKD, A. fib on Eliquis, systolic CHF here with complaints of shortness of breath for last 6 months however since this morning he states that his low oxygen levels were 88 at home. He presently denies any chest pain, cough or fever. States that he has been urinating okay but his legs are swollen, been very compliant with medication. MD elicited complaint: shortness of breath Pertinent past history: congestive heart failure Exacerbating factors: exertion Relieving factors: oxygen Known history of: congestive heart failure Associated symptoms: denies other symptoms Related Data Home oxygen amount: none Home Medications Medication Instructions Recorded Confirmed folic acid 20 mg capsule See Rx Instructions PO DAILY 07/17/19 05/30/20 garlic 300 mg PO DAILY 07/17/19 05/30/20 omega-3 fatty acids 500 mg PO DAILY 07/17/19 05/30/20 Allergies Allergy/AdvReac Type Severity Reaction Status Date / Time DEEPIKA Inhibitors Allergy Unknown Unknown Verified 08/19/20 17:16 Review of Systems Review of Systems: All systems reviewed & are unremarkable except as noted in HPI and below Constitutional: Constitutional: Reports no additional constitutional complaints Eyes: Eyes: Reports no additional eye complaints ENT: Reports system reviewed and no additional complaints, except as documented Cardiovascular: Cardiovascular: Reports no additional cardiovascular complaints Respiratory: Respiratory: Reports as per HPI Musculoskeletal: Musculoskeletal: Reports no additional musculoskeletal complaints Neurologic: Reports system reviewed and no additional complaints, except as documented Psychiatric: Psychiatric: Reports no additional psychiatric complaints [facility] Past Medical History Medical History Anemia ASHD (arteriosclerotic heart disease) Benign prostatic hyperplasia with lower urinary tract symptoms Bronchitis CAD (coronary artery disease), 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 CHF (congestive heart failure) Chronic systolic heart failure GARCIA (dyspnea on exertion) FH: coronary artery bypass surgery History of GI bleed History of heart attack History of inguinal hernia Hx of fracture of rib Hypertension Intermittent palpitations Iron deficiency anemia Mixed hyperlipidemia LEANN (obstructive sleep apnea) Other persistent atrial fibrillation Prediabetes Psoriasis Stage 1 chronic kidney disease Stroke Stroke due to embolism Vitamin B12 deficiency Surgical History Surgical History Failed CABG (coronary artery bypass graft) History of inguinal hernia repair Hx of CABG Hx of cardiac cath Hx of heart artery stent Family History Family History Father Family history of diabetes mellitus in first degree relative Social History Social History Smoking status: Never smoker Second hand tobacco smoke exposure: Yes Alcohol intake: never Gender identity (if verbalized by the patient): Male Exam Narrative: Exam Narrative: GENERAL: Well-appearing, well-nourished, and in no acute distress. HEAD: Normocephalic, atraumatic. EYES: PERRLA and EOMI NECK: Supple. CHEST: few basilar rales auscultation. No respiratory distress. HEART: Regular rate and rhythm. No murmur heard. Normal peripheral pulses. ABDOMEN: Soft, nontender, nondistended, normal active bowel sounds. EXTREMITIES: Normal range of motion. 2 plus edema. SKIN: Warm, dry, no rash. NEURO: No focal deficits. Jihan
[2020-08-19 18:16] LABS: NT Pro B Type Natriuretic Pept 5660 PG/ML (5-100); Troponin I 0.036 ng/mL (0.000-0.034)
[2020-08-19] MEDS: FUROSEMIDE INJ 40 MG/4 ML VIAL IV PUSH (18:20)
--- NOTE | 2020-08-19 18:20 | PC.NURSE ---
patient's trop elevated. planning for admission. lasix given as ordered. on environmental monitoring specialist. alert. denies needs. in room. and patient notified of no visitor policy for upstairs.
--- NOTE | 2020-08-19 20:07 | PC.NURSE ---
patient's anxious about time in ED and if there is a bed assigned. this RN has discussed with a few times. hospital is full and busy right now due to Covid. will do our best to get him upstairs marcia. lunch box given. assisting. no changes in condition. good urine output after lasix given.
--- NOTE | 2020-08-19 20:16 | PC.NURSE ---
bed assigned. SBAR tubed and faxed. patient and aware. patient eating.
--- NOTE | 2020-08-19 20:27 | PC.NURSE ---
RN not available for report. will call back.
[2020-08-19] MEDS: NITROGLYCERIN OINTMENT 1 INCH DOSE TRANSDERM ×2 (20:38→23:48)
--- NOTE | 2020-08-19 20:45 | PC.NURSE ---
report given to RN in IMU. patient transferred to [facility] via tech and on logging engineer.
--- NOTE | 2020-08-19 21:21 | ADMGEN ---
This patient, Armen Felipe, was admitted to IMU Room 206-01 on 08/19/20 at 2055. Patient/family oriented to hospital policies and general routines including ID bracelet, bed and alarms, visiting hours, pain management, procedures, bathroom and other care routines, personal items, smoking policy, room service/diet, and visiting hours. Information on how to activate the Rapid Response Team has been discussed. Patient/Family are encouraged to report perceived risks to care and to ask questions if they do not understand what they are told or what they should do.
[2020-08-19 22:10] LABS: Troponin I 0.038 ng/mL (0.000-0.034)
[2020-08-20] VITALS (16 sets, daily range): BP systolic 105–121; BP diastolic 47–69; PULSE 78–115; RESP 16–20; TEMP 36.1–37.2; O2SAT 90–100
[2020-08-20 01:22] LABS: Troponin I 0.051 ng/mL (0.000-0.034)
[2020-08-20] MEDS: NITROGLYCERIN OINTMENT 1 INCH DOSE TRANSDERM ×3 (05:59→18:02)
[2020-08-20 06:22] LABS: Anion Gap 5 mmol/L (8-16); Blood Urea Nitrogen 25 mg/dL (9-20); Calcium 7.8 mg/dL (8.4-10.2); Carbon Dioxide 27 mmol/L (22-30); Chloride 104 mmol/L (98-107); Estimated CRCL calculation 31 ml/min; Estimated Glomerular Filt Rate 44; Glucose 112 mg/dL (75-110); Potassium 3.5 mmol/L (3.4-5.0); Sodium 136 mmol/L (137-145)
--- NOTE | 2020-08-20 16:14 | PM.IMHP ---
H&P: HPI History of Present Illness Date/Time: 08/20/20 16:14 Chief Complaint: SOB Narrative: Armen Felipe is a 85 year old male usually in good health admitted with sob pt has history of chf, could not breath good so came into hospital. Pt has been taking his lasix sparingly as it increases his creat level. Pt feels better after iv lasix, i changed him to iv bumex as his creat is high. Pt denies fever,wheeze, chest pain, cough or leg swelling. pt wants to go to [facility] in the morning expecting earlier discharge tomorrow. CXR shows BL EDEMA and cardiomegaly. 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 CHF (congestive heart failure) Chronic systolic heart failure GARCIA (dyspnea on exertion) FH: coronary artery bypass surgery History of GI bleed History of heart attack History of inguinal hernia Hx of fracture of rib Hypertension Intermittent palpitations Iron deficiency anemia Mixed hyperlipidemia LEANN (obstructive sleep apnea) Other persistent atrial fibrillation Prediabetes Psoriasis Stage 1 chronic kidney disease Stroke Stroke due to embolism Vitamin B12 deficiency Surgical History Surgical History Failed CABG (coronary artery bypass graft) History of inguinal hernia repair Hx of CABG Hx of cardiac cath Hx of heart artery stent Family History Family History Father Family history of diabetes mellitus in first degree relative Social History Social History Smoking status: Never smoker Second hand tobacco smoke exposure: Yes Alcohol intake: never Substance use: never Substance use type: does not use Gender identity (if verbalized by the patient): Male Sexual Orientation (if Verbalized by the Patient): Straight or Heterosexual Spiritual care concerns: No Meds Home Medications and Allergies Home Medications Medication Instructions Recorded Confirmed Type folic acid 20 mg capsule 20 mg PO HS 07/17/19 08/19/20 History garlic 300 mg PO DAILY 07/17/19 08/19/20 History omega-3 fatty acids See Rx Instructions .ROUTE .COMPLEX 07/17/19 08/19/20 History furosemide 40 mg tablet 40 mg PO DAILY #270 tablet 01/06/20 08/19/20 Rx nitroglycerin 0.4 mg sublingual 0.4 mg SUBLINGUAL Q5M PRN #25 05/30/20 08/19/20 Rx tablet tablet benzonatate 200 mg capsule 200 mg PO TID PRN #30 cap 08/18/20 08/19/20 Rx apixaban [Eliquis] 2.5 mg PO BID 08/19/20 08/19/20 History atorvastatin 20 mg PO HS 08/19/20 08/19/20 History carvedilol [Coreg] See Rx Instructions .ROUTE .COMPLEX 08/19/20 08/19/20 History doxazosin 8 mg PO HS 08/19/20 08/19/20 History Allergies Allergy/AdvReac Type Severity Reaction Status Date / Time DEEPIKA Inhibitors Allergy Unknown Unknown Verified 08/19/20 22:08 Vital Signs Vital Signs - 24 hr 08/19/20 16:48 08/19/20 16:59 08/19/20 17:00 Temperature Pulse Rate 115 H 81 Respiratory Rate 24 H 23 H Blood Pressure Pulse Oximetry 98 98 100 08/19/20 17:02 08/19/20 17:03 08/19/20 17:11 Temperature 36.8 C Pulse Rate 80 82 92 Respiratory Rate 25 H 19 18 Blood Pressure 96/59 L 124/60 Pulse Oximetry 100 100 84 L 08/19/20 17:13 08/19/20 17:15 08/19/20 17:16 Temperature Pulse Rate 88 84 87 Respiratory Rate 26 H 25 H Blood Pressure 98/56 L Pulse Oximetry 100 99 08/19/20 17:17 08/19/20 17:30 08/19/20 17:32 Temperature Pulse
[2020-08-20] MEDS: APIXABAN 2.5 MG TABLET PO (17:28)
[2020-08-20] MEDS: BUMETANIDE INJ 1 MG/4 ML VIAL IV PUSH (17:28)
[2020-08-20] MEDS: DOXAZOSIN MESYLATE 4 MG TABLET 8 MG PO (20:13)
[2020-08-20] MEDS: carvediloL 3.125 MG TABLET BY MOUTH (20:13)
[2020-08-20] MEDS: ATORVASTATIN 20 MG TABLET PO (20:13)
[2020-08-21] VITALS (19 sets, daily range): BP systolic 102–119; BP diastolic 49–68; PULSE 76–112; RESP 16–20; TEMP 36.2–38.5; O2SAT 91–98
[2020-08-21] MEDS: NITROGLYCERIN OINTMENT 1 INCH DOSE TRANSDERM ×4 (00:19→17:58)
[2020-08-21 06:02] LABS: Anion Gap 4 mmol/L (8-16); Blood Urea Nitrogen 25 mg/dL (9-20); Calcium 8.1 mg/dL (8.4-10.2); Carbon Dioxide 30 mmol/L (22-30); Chloride 102 mmol/L (98-107); Estimated CRCL calculation 34 ml/min; Estimated Glomerular Filt Rate 48; Glucose 91 mg/dL (75-110); Potassium 3.3 mmol/L (3.4-5.0); Sodium 136 mmol/L (137-145)
[2020-08-21] MEDS: APIXABAN 2.5 MG TABLET PO ×2 (08:28→17:58)
[2020-08-21] MEDS: carvediloL 3.125 MG TABLET BY MOUTH ×2 (08:28→20:38)
[2020-08-21] MEDS: POTASSIUM CHLORIDE 20 MEQ TABLET 40 MEQ PO (12:12)
--- NOTE | 2020-08-21 14:09 | PC.NURSE ---
patient moved to PATIENT SERVICES CLERK 5. Tolerated transfer well via wheelchair. Sitting in recliner watching TV. States he is comfortable and pain free.
--- NOTE | 2020-08-21 14:59 | PM.IMPN ---
Progress Note: A&P Assessment and Plan (1) CHF exacerbation: Qualifiers: Heart failure type: systolic Qualified Code(s): I50.23 - Acute on chronic systolic (congestive) heart failure Code(s): I50.9 - Heart failure, unspecified Status: Acute Assessment and Plan: Diuresis, daily weights, IV bumex hopeful home tomorrow , CXR ordered for Foreign AM 08/21/20 14:59 Armen Felipe is a 85 year old male usually in good health admitted with sob pt has history of chf, could not breath good so came into hospital. Pt has been taking his lasix sparingly as it increases his creat level. Pt felt better after iv lasix, and it was changed to iv bumex as his creat was high upon arrival, patient states x-ray showed bilateral pulmonary edema with BNP of 5600. Today earlier patient was insisting to go home in the future take his Bumex however after nursing staff spoke with the patient has now agreed to stay and being treated will continue Bumex, will continue to monitor and reassess tomorrow, patient denies any chest pain shortness of breath palpitation fever or chills states feeling better compared to when he arrived (2) Hypoxemia: Code(s): R09.02 - Hypoxemia Status: Acute Assessment and Plan: Pt is on oxygen try to wean off and discharge home pt is usually on no oxygen (3) Anemia: Qualifiers: Anemia type: due to chronic kidney disease Chronic kidney disease stage: stage 3 (moderate) Chronic kidney disease stage 3 subtype: stage 3b (GFR 30-44) Qualified Code(s): N18.32 - Chronic kidney disease, stage 3b; D63.1 - Anemia in chronic kidney disease Code(s): D64.9 - Anemia, unspecified Status: Acute Assessment and Plan: hb is 9 (4) Stage III chronic kidney disease: Code(s): N18.3 - Chronic kidney disease, stage 3 (moderate) Status: Acute Assessment and Plan: Upon arrival patient creatinine was 1.5 patient is being diuresed with Bumex today his creatinine is 1.4 will continue to diurese and monitor kidney function Subjective Date/time seen: 08/21/20 14:59 Armen Felipe is a 85 year old male usually in good health admitted with sob pt has history of chf, could not breath good so came into hospital. Pt has been taking his lasix sparingly as it increases his creat level. Pt felt better after iv lasix, and it was changed to iv bumex as his creat was high upon arrival, patient states x-ray showed bilateral pulmonary edema with BNP of 5600. Today earlier patient was insisting to go home in the future take his Bumex however after nursing staff spoke with the patient has now agreed to stay and being treated will continue Bumex, will continue to monitor and reassess tomorrow, patient denies any chest pain shortness of breath palpitation fever or chills states feeling better compared to when he arrived Review of Systems Review of Systems: All systems reviewed & are unremarkable except as noted in HPI and below Objective Data Vital Signs Vital Signs: Vital Signs - 24 hr 08/20/20 15:55 08/20/20 16:00 08/20/20 17:57 Temperature 98 F Pulse Rate 95 115 H 107 H Respiratory Rate 18 Blood Pressure 113/69 Pulse Oximetry 100 08/20/20 19:27 08/20/20 20:00 08/20/20 20:13 Temperature 99 F Pulse Rate 102 H 101 H 101 H Respiratory Rate 20 20 Blood Pressure 121/63 Pulse Oximetry 94 94 08/20/20 22:00 08/20/20 23:55 08/21/20 00:00 Temperature 97 F L Pulse Rate 94 85 95 Respiratory Rate 18 18 Blood Pressure 109/49 L Pulse Oximetry 98 98 08/21/20 02:00 08/21/20 04:00 08/21/20 05:55 Temperature 98.1 F Pulse Rate 76 77 76 Respiratory Rate 18 Blood Pressure 111/55 L Pulse Oximetry 97 08/21/20 08:00 08/21/20 08:17 08/21/20 08:28 Temperature 98.4 F Pulse Rate 84 86 Respiratory Rate 18 Blood Pressure 103/49 L Pulse Oximetry 94 92 08/21/20 10:00 08/21/20 12:00 Temperature 97.1 F L Pulse Rate 81
[2020-08-21] MEDS: BUMETANIDE INJ 1 MG/4 ML VIAL IV PUSH (17:59)
--- NOTE | 2020-08-21 20:28 | PM.EVENT ---
Event Note Event Note Event Note: The patient developed a fever so moved him out of chest pain clinic. Will check him for COVID. I gave him IV Tylenol will get blood cultures and chest x-ray.
[2020-08-21] MEDS: DOXAZOSIN MESYLATE 4 MG TABLET 8 MG PO (20:36)
[2020-08-21] MEDS: FOLIC ACID 1 MG TABLET PO (20:36)
[2020-08-21] MEDS: ATORVASTATIN 20 MG TABLET PO (20:38)
[2020-08-21] MEDS: ACETAMINOPHEN 325 MG TABLET 650 MG PO (20:49)
--- NOTE | 2020-08-21 20:56 | PC.NURSE ---
2051- This patient, Armen Felipe, was transferred to Med/Surg room 310 on 08/21/2020 at 2051. Personal belongings sent with patient. Report given to ARELI Quevedo. Appropriate documentation sent with patient.
--- NOTE | 2020-08-21 21:38 | PC.NURSE ---
This patient, Armen Felipe, was received from [facility] on 08/21/20 at 2138. Patient/family oriented to unit policies and routines. Bed alarm on. Family notified by patient. Call light in reach.
[2020-08-21 22:48] LABS: Basophils Percent Auto 0.2 % (0.2-1.2); Eosinophils Absolute Auto 0.1 K/mm3 (0-0.3); Eosinophils Percent Auto 2.2 % (0-4.4); Hematocrit 25.1 % (42.0-52.0); Hemoglobin 8.3 g/dL (14.0-18.0); Immature Granulocyte Absolute 0.03 K/mm3 (0.00-0.031); Immature Granulocyte Percent A 0.5 % (0-0.5); Lymphocytes Absolute Auto 0.89 K/mm3 (0.9-3.2); Lymphocytes Percent Auto 14.1 % (18.3-44.2); Mean Corpuscular HGB Conc 33.1 g/dl (32-36); Mean Corpuscular Hemoglobin 35.5 pg (26-34); Mean Corpuscular Volume 107.3 fl (80-100); Mean Platelet Volume 11.1 fl (7.4-10.4); Monocytes Absolute Auto 0.4 K/mm3 (0.1-0.6); Monocytes Percent Auto 6.5 % (2.6-8.5); Neutrophils Absolute Auto 4.8 K/mm3 (1.3-6.7); Neutrophils Percent Auto 76.5 % (45.5-73.1); Platelet Count Result 174 k/mm3 (150-375); Red Blood Count 2.34 M/mm3 (4.6-6.20); Red Cell Distribution Width 15.2 % (11.5-14.5); White Blood Count 6.3 K/mm3 (4.5-10.0)
[2020-08-21 22:58] LABS: Alanine Aminotransferase 18 U/L (4-50)
[2020-08-22] VITALS (12 sets, daily range): BP systolic 92–126; BP diastolic 45–68; PULSE 70–105; RESP 18–26; TEMP 36.2–39.1; O2SAT 91–100
[2020-08-22] MEDS: NITROGLYCERIN OINTMENT 1 INCH DOSE TRANSDERM ×4 (01:00→18:53)
[2020-08-22 06:32] LABS: Hematocrit 25.1 % (42.0-52.0); Hemoglobin 8.3 g/dL (14.0-18.0); Mean Corpuscular HGB Conc 33.1 g/dl (32-36); Mean Corpuscular Hemoglobin 34.7 pg (26-34); Mean Platelet Volume 10.6 fl (7.4-10.4); Platelet Count Result 160 k/mm3 (150-375); Red Blood Count 2.39 M/mm3 (4.6-6.20); White Blood Count 5.7 K/mm3 (4.5-10.0)
[2020-08-22 06:44] LABS: Anion Gap 6 mmol/L (8-16); Blood Urea Nitrogen 30 mg/dL (9-20); Calcium 8.4 mg/dL (8.4-10.2); Carbon Dioxide 30 mmol/L (22-30); Chloride 98 mmol/L (98-107); Estimated CRCL calculation 36 ml/min; Estimated Glomerular Filt Rate 52; Glucose 109 mg/dL (75-110); Magnesium 2.2 mg/dL (1.6-2.3); Potassium 3.9 mmol/L (3.4-5.0); Sodium 134 mmol/L (137-145)
[2020-08-22 06:50] LABS: Alanine Aminotransferase 19 U/L (4-50)
[2020-08-22] MEDS: carvediloL 3.125 MG TABLET BY MOUTH ×2 (08:35→21:38)
[2020-08-22] MEDS: BUMETANIDE INJ 1 MG/4 ML VIAL IV PUSH ×2 (08:35→18:41)
[2020-08-22] MEDS: APIXABAN 2.5 MG TABLET PO ×2 (08:35→18:29)
[2020-08-22] MEDS: FUROSEMIDE 40 MG TABLET PO (08:37)
--- NOTE | 2020-08-22 13:19 | PM.IMPN ---
Progress Note: A&P Assessment and Plan (1) CHF exacerbation: Qualifiers: Heart failure type: systolic Qualified Code(s): I50.23 - Acute on chronic systolic (congestive) heart failure Code(s): I50.9 - Heart failure, unspecified Status: Acute Assessment and Plan: Diuresis, daily weights, IV bumex hopeful home tomorrow , CXR ordered for Foreign AM 08/22/20 13:19 Armen Felipe is a 85 year old male usually in good health admitted with sob pt has history of chf, could not breath good so came into hospital. Pt has been taking his lasix sparingly as it increases his creat level. Pt felt better after iv lasix, and it was changed to iv bumex as his creat was high upon arrival, patient states x-ray showed bilateral pulmonary edema with BNP of 5600. on 08/21 patient was insisting to go home, refused to take his Bumex however after nursing staff spoke with the patient had agreed to stay and being treated take his Bumex, last night patient developed fever and was short of breath patient was transferred to IMU suspecting this may have a COVID being tested an isolated, this morning patient states is feeling a bit short of breath denies any fever or chills, patient clinically stable his creatinine is improved he has been taking Bumex, continue present management will follow-up on COVID test and further recommendation to follow (2) Hypoxemia: Code(s): R09.02 - Hypoxemia Status: Acute Assessment and Plan: Pt is on oxygen try to wean off and discharge home pt is usually on no oxygen (3) Anemia: Qualifiers: Anemia type: due to chronic kidney disease Chronic kidney disease stage: stage 3 (moderate) Chronic kidney disease stage 3 subtype: stage 3b (GFR 30-44) Qualified Code(s): N18.32 - Chronic kidney disease, stage 3b; D63.1 - Anemia in chronic kidney disease Code(s): D64.9 - Anemia, unspecified Status: Acute Assessment and Plan: hb is 9 (4) Stage III chronic kidney disease: Code(s): N18.3 - Chronic kidney disease, stage 3 (moderate) Status: Acute Assessment and Plan: Upon arrival patient creatinine was 1.5 patient is being diuresed with Bumex today his creatinine is 1.4 will continue to diurese and monitor kidney function Subjective Date/time seen: 08/22/20 13:19 Armen Felipe is a 85 year old male usually in good health admitted with sob pt has history of chf, could not breath good so came into hospital. Pt has been taking his lasix sparingly as it increases his creat level. Pt felt better after iv lasix, and it was changed to iv bumex as his creat was high upon arrival, patient states x-ray showed bilateral pulmonary edema with BNP of 5600. on 08/21 patient was insisting to go home, refused to take his Bumex however after nursing staff spoke with the patient had agreed to stay and being treated take his Bumex, last night patient developed fever and was short of breath patient was transferred to IMU suspecting this may have a COVID being tested an isolated, this morning patient states is feeling a bit short of breath denies any fever or chills, patient clinically stable his creatinine is improved he has been taking Bumex, continue present management will follow-up on COVID test and further recommendation to follow Review of Systems Review of Systems: All systems reviewed & are unremarkable except as noted in HPI and below ROS unobtainable: Yes other (SOB ) Exam Narrative: Exam Narrative: Patient is comfortable, NAD HEENT: eyes are clear and none icteric LUNGS: Normal respiratory effort ABD: Nondistended Lower extremities: no edema SKIN: nonjaundiced Neuro: grossly intact. Normal speech Objective Data Vital Signs Vital Signs: Vital Signs - 24 hr 08/21/20 14:00 08/21/20 16:00 08/21/20 18:00 Temperature 98.6 F Pulse Rate 84 89 111 H Respiratory Rate 16 Blood Pressure 108/68 Pulse Oximetry 91 08/21/20 19:
[2020-08-22] MEDS: ACETAMINOPHEN 325 MG TABLET 650 MG PO (16:35)
[2020-08-22 16:54] LABS: SARS-CoV-2 RNA PCR Positive
[2020-08-22] MEDS: REMDESIVIR 200 MG/NS 250 ML 200 MG/250 ML BAG 250 MG IVPB (18:33)
[2020-08-22] MEDS: FOLIC ACID 1 MG TABLET PO (21:38)
[2020-08-22] MEDS: ATORVASTATIN 20 MG TABLET PO (21:39)
[2020-08-22] MEDS: DOXAZOSIN MESYLATE 4 MG TABLET 8 MG PO (21:39)
[2020-08-23] VITALS (11 sets, daily range): BP systolic 98–113; BP diastolic 45–63; PULSE 68–113; RESP 18–20; TEMP 36.2–38.2; O2SAT 94–98
[2020-08-23] MEDS: NITROGLYCERIN OINTMENT 1 INCH DOSE TRANSDERM ×5 (00:50→23:59)
[2020-08-23] MEDS: ACETAMINOPHEN 325 MG TABLET 650 MG PO (06:20)
[2020-08-23 06:26] LABS: Hematocrit 23.9 % (42.0-52.0); Mean Corpuscular HGB Conc 33.5 g/dl (32-36); Mean Corpuscular Hemoglobin 35.1 pg (26-34); Mean Corpuscular Volume 104.8 fl (80-100); Mean Platelet Volume 11.1 fl (7.4-10.4); Platelet Count Result 151 k/mm3 (150-375); Red Blood Count 2.28 M/mm3 (4.6-6.20); Red Cell Distribution Width 14.9 % (11.5-14.5); White Blood Count 4.5 K/mm3 (4.5-10.0)
[2020-08-23 06:38] LABS: Alanine Aminotransferase 19 U/L (4-50); Anion Gap 7 mmol/L (8-16); Blood Urea Nitrogen 26 mg/dL (9-20); Carbon Dioxide 31 mmol/L (22-30); Chloride 96 mmol/L (98-107); Estimated CRCL calculation 34 ml/min; Estimated Glomerular Filt Rate 48; Glucose 107 mg/dL (75-110); Magnesium 1.9 mg/dL (1.6-2.3); Potassium 3.6 mmol/L (3.4-5.0); Sodium 134 mmol/L (137-145)
[2020-08-23] MEDS: APIXABAN 2.5 MG TABLET PO ×2 (08:13→17:18)
[2020-08-23] MEDS: carvediloL 3.125 MG TABLET BY MOUTH ×2 (08:14→20:35)
[2020-08-23] MEDS: FUROSEMIDE 40 MG TABLET PO (08:14)
[2020-08-23] MEDS: BUMETANIDE INJ 1 MG/4 ML VIAL IV PUSH (08:21)
[2020-08-23 09:53] LABS: Alanine Aminotransferase 18 U/L (4-50); Albumin Level 2.9 g/dL (3.5-5.1); Alkaline Phosphatase 114 U/L (38-126); Anion Gap 5 mmol/L (8-16); Aspartate Amino Transferase 51 U/L (17-59); Bilirubin,Total 0.6 mg/dL (0.2-1.3); Blood Urea Nitrogen 27 mg/dL (9-20); Carbon Dioxide 32 mmol/L (22-30); Chloride 96 mmol/L (98-107); Estimated CRCL calculation 34 ml/min; Estimated Glomerular Filt Rate 48; Glucose 108 mg/dL (75-110); Potassium 3.5 mmol/L (3.4-5.0); Sodium 133 mmol/L (137-145)
[2020-08-23] MEDS: DEXAMETHASONE SOD PHOS INJ 4 MG/ML VIAL 6 MG IV PUSH (10:29)
--- NOTE | 2020-08-23 12:33 | PM.IMPN ---
Progress Note: A&P Assessment and Plan (1) CHF exacerbation: Qualifiers: Heart failure type: systolic Qualified Code(s): I50.23 - Acute on chronic systolic (congestive) heart failure Code(s): I50.9 - Heart failure, unspecified Status: Acute Assessment and Plan: Diuresis, daily weights, IV bumex hopeful home tomorrow , CXR ordered for Foreign AM 08/23/20 12:33 Armen Felipe is a 85 year old male usually in good health admitted with sob pt has history of chf, could not breath good so came into hospital. Pt has been taking his lasix sparingly as it increases his creat level. Pt felt better after iv lasix, and it was changed to iv bumex as his creat was high upon arrival, patient states x-ray showed bilateral pulmonary edema with BNP of 5600. on 08/21 patient was insisting to go home, refused to take his Bumex however after nursing staff spoke with the patient had agreed to stay and being treated and take his Bumex, on 08/22 patient developed fever and was short of breath patient was transferred to IMU suspecting this may have a COVID being tested an isolated, and patient is COVID positive, patient was started on Remdesivir on 08/22 2/5, and today will start on dexamethasone 1/10, this morning patient states is feeling a bit short of breath denies any fever or chills, patient clinically stable his creatinine is improved will stop Bumex prevent any rising creatinine, will start the patient on albuterol MDI, patient is requiring 2 L of oxygen, and temp of 100.8 on 08/23, will have a PT evaluate the patient, will continue to monitor (2) Hypoxemia: Code(s): R09.02 - Hypoxemia Status: Acute Assessment and Plan: Pt is on oxygen try to wean off and discharge home pt is usually on no oxygen (3) Anemia: Qualifiers: Anemia type: due to chronic kidney disease Chronic kidney disease stage: stage 3 (moderate) Chronic kidney disease stage 3 subtype: stage 3b (GFR 30-44) Qualified Code(s): N18.32 - Chronic kidney disease, stage 3b; D63.1 - Anemia in chronic kidney disease Code(s): D64.9 - Anemia, unspecified Status: Acute Assessment and Plan: hb is 9 (4) Stage III chronic kidney disease: Code(s): N18.3 - Chronic kidney disease, stage 3 (moderate) Status: Acute Assessment and Plan: Upon arrival patient creatinine was 1.5 patient is being diuresed with Bumex today his creatinine is 1.4 will continue to diurese and monitor kidney function Subjective Date/time seen: 08/23/20 12:33 Armen Felipe is a 85 year old male usually in good health admitted with sob pt has history of chf, could not breath good so came into hospital. Pt has been taking his lasix sparingly as it increases his creat level. Pt felt better after iv lasix, and it was changed to iv bumex as his creat was high upon arrival, patient states x-ray showed bilateral pulmonary edema with BNP of 5600. on 08/21 patient was insisting to go home, refused to take his Bumex however after nursing staff spoke with the patient had agreed to stay and being treated and take his Bumex, on 08/22 patient developed fever and was short of breath patient was transferred to IMU suspecting this may have a COVID being tested an isolated, and patient is COVID positive, patient was started on Remdesivir on 08/22 2/5, and today will start on dexamethasone 1/10, this morning patient states is feeling a bit short of breath denies any fever or chills, patient clinically stable his creatinine is improved will stop Bumex prevent any rising creatinine, will start the patient on albuterol MDI, patient is requiring 2 L of oxygen, and temp of 100.8 on 08/23, will have a PT evaluate the patient, will continue to monitor Review of Systems Review of Systems: All systems reviewed & are unremarkable except as noted in HPI and below Exam Narrative: Exam Narrative: Patient is comfortable, NAD HEENT: eyes are clear and
[2020-08-23] MEDS: ALBUTEROL SULFATE (*SP) AEROSOL 1 PUFF 2 PUFF INHALATION ×2 (15:15→22:54)
[2020-08-23] MEDS: FOLIC ACID 1 MG TABLET PO (20:34)
[2020-08-23] MEDS: REMDESIVIR 100 MG/NS 250 ML 100 MG/250 ML BAG 250 MG IVPB (20:34)
[2020-08-23] MEDS: ATORVASTATIN 20 MG TABLET PO (20:35)
[2020-08-23] MEDS: DOXAZOSIN MESYLATE 4 MG TABLET 8 MG PO (20:35)
[2020-08-24] VITALS (9 sets, daily range): BP systolic 103–114; BP diastolic 54–70; PULSE 62–82; RESP 16–18; TEMP 35.9–36.9; O2SAT 93–98
[2020-08-24] MEDS: ALBUTEROL SULFATE (*SP) AEROSOL 1 PUFF 2 PUFF INHALATION ×4 (02:02→21:16)
[2020-08-24] MEDS: NITROGLYCERIN OINTMENT 1 INCH DOSE TRANSDERM ×4 (05:54→23:50)
[2020-08-24 06:47] LABS: Hematocrit 23.8 % (42.0-52.0); Hemoglobin 7.9 g/dL (14.0-18.0); Immature Granulocyte Absolute 0.05 K/mm3 (0.00-0.031); Lymphocytes Absolute Auto 0.88 K/mm3 (0.9-3.2); Lymphocytes Percent Auto 17.4 % (18.3-44.2); Mean Corpuscular HGB Conc 33.2 g/dl (32-36); Mean Corpuscular Hemoglobin 34.3 pg (26-34); Mean Corpuscular Volume 103.5 fl (80-100); Mean Platelet Volume 11.4 fl (7.4-10.4); Monocytes Absolute Auto 0.2 K/mm3 (0.1-0.6); Monocytes Percent Auto 4.6 % (2.6-8.5); Neutrophils Absolute Auto 3.9 K/mm3 (1.3-6.7); Platelet Count Result 153 k/mm3 (150-375); Red Cell Distribution Width 14.6 % (11.5-14.5); White Blood Count 5.1 K/mm3 (4.5-10.0)
[2020-08-24 07:08] LABS: Alanine Aminotransferase 21 U/L (4-50); Albumin Level 2.9 g/dL (3.5-5.1); Alkaline Phosphatase 107 U/L (38-126); Anion Gap 7 mmol/L (8-16); Aspartate Amino Transferase 55 U/L (17-59); Bilirubin,Total 0.5 mg/dL (0.2-1.3); Blood Urea Nitrogen 34 mg/dL (9-20); Calcium 8.4 mg/dL (8.4-10.2); Carbon Dioxide 31 mmol/L (22-30); Chloride 96 mmol/L (98-107); Estimated CRCL calculation 39 ml/min; Estimated Glomerular Filt Rate 58; Glucose 134 mg/dL (75-110); Magnesium 2.3 mg/dL (1.6-2.3); Potassium 3.6 mmol/L (3.4-5.0); Sodium 134 mmol/L (137-145)
[2020-08-24] MEDS: carvediloL 3.125 MG TABLET BY MOUTH ×2 (08:28→21:15)
[2020-08-24] MEDS: DEXAMETHASONE SOD PHOS INJ 4 MG/ML VIAL 6 MG IV PUSH (08:28)
[2020-08-24] MEDS: APIXABAN 2.5 MG TABLET PO ×2 (08:28→16:55)
[2020-08-24] MEDS: FUROSEMIDE 40 MG TABLET PO (08:29)
--- NOTE | 2020-08-24 13:37 | PM.IMPN ---
Progress Note: A&P Assessment and Plan (1) CHF exacerbation: Qualifiers: Heart failure type: systolic Qualified Code(s): I50.23 - Acute on chronic systolic (congestive) heart failure Code(s): I50.9 - Heart failure, unspecified Status: Acute Assessment and Plan: Diuresis, daily weights, IV bumex hopeful home tomorrow , CXR ordered for Foreign AM 08/24/20 13:37 Armen Felipe is a 85 year old male usually in good health admitted with sob pt has history of chf, could not breath good so came into hospital. Pt has been taking his lasix sparingly as it increases his creat level. Pt felt better after iv lasix, and it was changed to iv bumex as his creat was high upon arrival, patient states x-ray showed bilateral pulmonary edema with BNP of 5600. on 08/21 patient was insisting to go home, refused to take his Bumex however after nursing staff spoke with the patient had agreed to stay and being treated and take his Bumex, on 08/22 patient developed fever and was short of breath patient was transferred to IMU suspecting this may have a COVID being tested an isolated, and patient is COVID positive, patient was started on Remdesivir on 08/22 3/5, and on 08/23 started on dexamethasone 2/10, today patient is feeling much better his oxygen requirement has also improved he denies for any fever or chills, patient clinically stable his creatinine is improved stopped Bumex to prevent any rising creatinine, will start the patient on albuterol MDI, today patient is requiring 1 L of oxygen, and temp of 100.8 was on 08/23, and not remains afebrile, will have a PT evaluate the patient, will continue to monitor if patient remains afebrile and does not require more than 6 L of oxygen will possibly discharge the patient home tomorrow. (2) Hypoxemia: Code(s): R09.02 - Hypoxemia Status: Acute Assessment and Plan: Pt is on oxygen try to wean off and discharge home pt is usually on no oxygen (3) Anemia: Qualifiers: Anemia type: due to chronic kidney disease Chronic kidney disease stage: stage 3 (moderate) Chronic kidney disease stage 3 subtype: stage 3b (GFR 30-44) Qualified Code(s): N18.32 - Chronic kidney disease, stage 3b; D63.1 - Anemia in chronic kidney disease Code(s): D64.9 - Anemia, unspecified Status: Acute Assessment and Plan: hb is 9 (4) Stage III chronic kidney disease: Code(s): N18.3 - Chronic kidney disease, stage 3 (moderate) Status: Acute Assessment and Plan: Upon arrival patient creatinine was 1.5 patient is being diuresed with Bumex today his creatinine is 1.4 will continue to diurese and monitor kidney function Subjective Date/time seen: 08/24/20 13:37 Armen Felipe is a 85 year old male usually in good health admitted with sob pt has history of chf, could not breath good so came into hospital. Pt has been taking his lasix sparingly as it increases his creat level. Pt felt better after iv lasix, and it was changed to iv bumex as his creat was high upon arrival, patient states x-ray showed bilateral pulmonary edema with BNP of 5600. on 08/21 patient was insisting to go home, refused to take his Bumex however after nursing staff spoke with the patient had agreed to stay and being treated and take his Bumex, on 08/22 patient developed fever and was short of breath patient was transferred to IMU suspecting this may have a COVID being tested an isolated, and patient is COVID positive, patient was started on Remdesivir on 08/22 3/5, and on 08/23 started on dexamethasone 2/10, today patient is feeling much better his oxygen requirement has also improved he denies for any fever or chills, patient clinically stable his creatinine is improved stopped Bumex to prevent any rising creatinine, will start the patient on albuterol MDI, today patient is requiring 1 L of oxygen, and temp of 100.8 was on 08/23, and not remains afebrile, will have a PT evaluat
[2020-08-24] MEDS: DOXAZOSIN MESYLATE 4 MG TABLET 8 MG PO (21:15)
[2020-08-24] MEDS: FOLIC ACID 1 MG TABLET PO (21:15)
[2020-08-24] MEDS: ATORVASTATIN 20 MG TABLET PO (21:15)
[2020-08-24] MEDS: REMDESIVIR 100 MG/NS 250 ML 100 MG/250 ML BAG 250 MG IVPB (21:16)
[2020-08-25] VITALS (8 sets, daily range): BP systolic 109–115; BP diastolic 53–82; PULSE 62–90; RESP 16–18; TEMP 36.3–36.9; O2SAT 91–96
[2020-08-25] MEDS: ALBUTEROL SULFATE (*SP) AEROSOL 1 PUFF 2 PUFF INHALATION ×2 (01:45→08:53)
[2020-08-25] MEDS: NITROGLYCERIN OINTMENT 1 INCH DOSE TRANSDERM (05:22)
[2020-08-25 06:47] LABS: Basophils Percent Auto 0.1 % (0.2-1.2); Hematocrit 24.3 % (42.0-52.0); Hemoglobin 8.1 g/dL (14.0-18.0); Immature Granulocyte Absolute 0.06 K/mm3 (0.00-0.031); Immature Granulocyte Percent A 0.6 % (0-0.5); Lymphocytes Absolute Auto 1.13 K/mm3 (0.9-3.2); Lymphocytes Percent Auto 11.7 % (18.3-44.2); Mean Corpuscular HGB Conc 33.3 g/dl (32-36); Mean Corpuscular Hemoglobin 34.8 pg (26-34); Mean Corpuscular Volume 104.3 fl (80-100); Mean Platelet Volume 11.5 fl (7.4-10.4); Monocytes Absolute Auto 0.5 K/mm3 (0.1-0.6); Monocytes Percent Auto 4.7 % (2.6-8.5); Neutrophils Percent Auto 82.9 % (45.5-73.1); Platelet Count Result 158 k/mm3 (150-375); Red Blood Count 2.33 M/mm3 (4.6-6.20); Red Cell Distribution Width 14.8 % (11.5-14.5); White Blood Count 9.6 K/mm3 (4.5-10.0)
[2020-08-25 07:25] LABS: Alanine Aminotransferase 20 U/L (4-50); Albumin Level 2.8 g/dL (3.5-5.1); Alkaline Phosphatase 109 U/L (38-126); Anion Gap 4 mmol/L (8-16); Aspartate Amino Transferase 50 U/L (17-59); Bilirubin,Total 0.5 mg/dL (0.2-1.3); Blood Urea Nitrogen 38 mg/dL (9-20); Calcium 8.5 mg/dL (8.4-10.2); Carbon Dioxide 32 mmol/L (22-30); Chloride 98 mmol/L (98-107); Estimated CRCL calculation 42 ml/min; Estimated Glomerular Filt Rate > 60; Glucose 119 mg/dL (75-110); Potassium 3.8 mmol/L (3.4-5.0); Sodium 134 mmol/L (137-145)
[2020-08-25 07:51] LABS: Magnesium 2.4 mg/dL (1.6-2.3)
[2020-08-25] MEDS: carvediloL 3.125 MG TABLET BY MOUTH (08:53)
[2020-08-25] MEDS: DEXAMETHASONE SOD PHOS INJ 4 MG/ML VIAL 6 MG IV PUSH (08:53)
[2020-08-25] MEDS: FUROSEMIDE 40 MG TABLET PO (08:53)
[2020-08-25] MEDS: APIXABAN 2.5 MG TABLET PO (08:53)
--- NOTE | 2020-08-25 12:48 | PM.DS ---
DS: Admitting Diagnosis Admitting Diagnosis Admitting Diagnosis: Shortness of breath DS: Discharge Diagnosis Discharge Diagnosis (1) CHF exacerbation: Qualifiers: Heart failure type: systolic Qualified Code(s): I50.23 - Acute on chronic systolic (congestive) heart failure Code(s): I50.9 - Heart failure, unspecified Status: Acute Assessment and Plan: Diuresis, daily weights, IV bumex hopeful home tomorrow , CXR ordered for Foreign AM 08/24/20 13:37 Armen Felipe is a 85 year old male usually in good health admitted with sob pt has history of chf, could not breath good so came into hospital. Pt has been taking his lasix sparingly as it increases his creat level. Pt felt better after iv lasix, and it was changed to iv bumex as his creat was high upon arrival, patient states x-ray showed bilateral pulmonary edema with BNP of 5600. on 08/21 patient was insisting to go home, refused to take his Bumex however after nursing staff spoke with the patient had agreed to stay and being treated and take his Bumex, on 08/22 patient developed fever and was short of breath patient was transferred to IMU suspecting this may have a COVID being tested an isolated, and patient is COVID positive, patient was started on Remdesivir on 08/22 3/5, and on 08/23 started on dexamethasone 2/10, today patient is feeling much better his oxygen requirement has also improved he denies for any fever or chills, patient clinically stable his creatinine is improved stopped Bumex to prevent any rising creatinine, will start the patient on albuterol MDI, today patient is requiring 1 L of oxygen, and temp of 100.8 was on 08/23, and not remains afebrile, will have a PT evaluate the patient, will continue to monitor if patient remains afebrile and does not require more than 6 L of oxygen will possibly discharge the patient home tomorrow. (2) Hypoxemia: Code(s): R09.02 - Hypoxemia Status: Acute Assessment and Plan: Pt is on oxygen try to wean off and discharge home pt is usually on no oxygen (3) Anemia: Qualifiers: Anemia type: due to chronic kidney disease Chronic kidney disease stage: stage 3 (moderate) Chronic kidney disease stage 3 subtype: stage 3b (GFR 30-44) Qualified Code(s): N18.32 - Chronic kidney disease, stage 3b; D63.1 - Anemia in chronic kidney disease Code(s): D64.9 - Anemia, unspecified Status: Acute Assessment and Plan: hb is 9 (4) Stage III chronic kidney disease: Code(s): N18.3 - Chronic kidney disease, stage 3 (moderate) Status: Acute Assessment and Plan: Upon arrival patient creatinine was 1.5 patient is being diuresed with Bumex today his creatinine is 1.4 will continue to diurese and monitor kidney function DS: Summary Hospital Course Reason for hospitalization: Chief Complaint: SOB Narrative: Armen Felipe is a 85 year old male usually in good health admitted with sob pt has history of chf, could not breath good so came into hospital. Pt has been taking his lasix sparingly as it increases his creat level. Pt feels better after iv lasix, i changed him to iv bumex as his creat is high. Pt denies fever,wheeze, chest pain, cough or leg swelling. [facility] expecting earlier discharge tomorrow. CXR shows BL EDEMA and cardiomegaly. probnp is 5660 Hospital Course: Armen Felipe is a 85 year old male usually in good health admitted with sob pt has history of chf, could not breath good so came into hospital. Pt has been taking his lasix sparingly as it increases his creat level. Pt felt better after iv lasix, and it was changed to iv bumex as his creat was high upon arrival, patient states x-ray showed bilateral pulmonary edema with BNP of 5600. on 08/21 patient was insisting to go home, refused to take his Bumex however after nursing staff spoke with the patient had agreed to stay and being treated and take his Bum
--- NOTE | 2020-08-25 15:15 | HOMEO2EVAL ---
HOME O2 EVAL COMPLETE, NO REQUIREMENTS
== END 2020-08-25 14:00 | disposition home or self-care (01) | DRG 177 ==
LOC: ANHED 18:23 → ANHIMU 22:31 → ANHCPC 08-21 20:59 → ANH3MEDSUR 08-22 15:53 → ANHCPC 08-29 17:13 → ANHIMU 08-29 17:13
PROVIDERS: Family Medicine; Nurse Practitioner; Admitting Provider Internal Medicine; Emergency Provider Family Medicine; PCP Internal Medicine; Visit Provider Family Medicine
DX: U07.1 COVID-19 (principal); I50.23 Acute on chronic systolic (congestive) heart failure; I13.0 Hypertensive heart and chronic kidney disease with heart failure and stage 1 through stage 4 chronic kidney disease, or unspecified chronic kidney disease; I48.20 Chronic atrial fibrillation, unspecified; I25.810 Atherosclerosis of coronary artery bypass graft(s) without angina pectoris; R09.02 Hypoxemia; N18.32 Chronic kidney disease, stage 3b; D63.1 Anemia in chronic kidney disease; N40.1 Benign prostatic hyperplasia with lower urinary tract symptoms; G47.33 Obstructive sleep apnea (adult) (pediatric); L40.9 Psoriasis, unspecified; E53.8 Deficiency of other specified B group vitamins; R73.03 Prediabetes; I25.10 Atherosclerotic heart disease of native coronary artery without angina pectoris; D50.9 Iron deficiency anemia, unspecified; Z79.01 Long term (current) use of anticoagulants; Z86.73 Personal history of transient ischemic attack (TIA), and cerebral infarction without residual deficits; I25.2 Old myocardial infarction; Z95.5 Presence of coronary angioplasty implant and graft; Z95.1 Presence of aortocoronary bypass graft
CPT/HCPCS: 36415; 71045; 80048; 80053; 83735; 83880; 84460; 84484; 85025; 85027; 85610; 87040; 87635; 94618; 94640; 96374; 97110; 97116; 97161; 99285; A9270; C9803; J1100; J1940; U0003

== ENCOUNTER 2020-08-29 16:15 | Observation (INO) | payer MEDICARE, SELFPAY ==
[2020-08-29] VITALS (8 sets, daily range): BP systolic 101–123; BP diastolic 49–66; PULSE 66–92; RESP 16–27; TEMP 36.4–36.6; O2SAT 93–99; BMI 23.7
--- NOTE | ~2020-08-29 | XR_ITS ---
EXAMINATION: XR chest 1V portable INDICATION: Cough and shortness of breath TECHNIQUE: Portable AP chest at 1741 hours COMPARISON: 08/21/2020 FINDINGS: Patchy bilateral airspace opacities persist but have improved. There is stable cardiomegaly . A small left pleural effusion is decreased in size. There is no pneumothorax. A previously describe d interstitial pattern has also improved. There are changes of prior cardiac surgery. IMPRESSION: 1. Persistent but improving interstitial and airspace opacities of the lungs, consistent with resolvi ng pneumonia and/or pulmonary edema. Reviewed, dictated and finalized at location A. BIOLOGY IMPRESSION: 1. Persistent but improving interstitial and airspace opacities of the lungs, c onsistent with resolving pneumonia and/or pulmonary edema.
--- NOTE | 2020-08-29 16:34 | ECG_ITS ---
Measurements Intervals [place] Rate: 76 P: [place]: 0 QRS: 8 QRSD: 189 T: 167 QT: 473 QTc: 533 Interpretive Statements ATRIAL FIBRILLATION LEFT BUNDLE BRANCH BLOCK BASELINE ARTIFACT0 I, III, V1-V2 ABNORMAL ECG Electronically Signed On 08-29-2020 19:16:43 AUDIT SPECIALIST by Darrel Wade D.O.
--- NOTE | 2020-08-29 16:37 | ED.GENADULT ---
HPI - General Adult General Chief complaint: Shortness of Breath/Dyspnea Stated complaint: SOB Time Seen by Provider: 08/29/20 16:19 Source: patient History of Present Illness HPI narrative: Patient is a 85 y/o male complaining of moderate SOB for 1 week. There is no alleviating or exacerbating factor. He has some cough. He has no chest pain or fever. He was recently diagnosed with COVID, admitted and discharged. Related Data Home Medications Medication Instructions Recorded Confirmed folic acid 20 mg capsule 20 mg PO HS 07/17/19 08/19/20 garlic 300 mg PO DAILY 07/17/19 08/19/20 omega-3 fatty acids See Rx Instructions .ROUTE .COMPLEX 07/17/19 08/19/20 Eliquis 2.5 mg PO BID 08/19/20 08/19/20 atorvastatin 20 mg PO HS 08/19/20 08/19/20 carvedilol [Coreg] See Rx Instructions .ROUTE .COMPLEX 08/19/20 08/19/20 doxazosin 8 mg PO HS 08/19/20 08/19/20 Allergies Allergy/AdvReac Type Severity Reaction Status Date / Time DEEPIKA Inhibitors Allergy Unknown Unknown Verified 08/29/20 16:54 Review of Systems Constitutional: Constitutional: Denies chills, Denies fever(s), Denies headache(s) and Denies weakness Eyes: Eyes: Denies blurry vision ENT: Denies headache(s) and Denies neck pain Cardiovascular: Cardiovascular: Denies chest pain and Reports dyspnea Respiratory: Respiratory: Reports cough and Reports dyspnea Gastrointestinal: Gastrointestinal: Denies abdominal pain, Denies diarrhea, Denies nausea and Denies vomiting Genitourinary: Genitourinary: Denies hematuria and Denies dysuria Musculoskeletal: Musculoskeletal: Denies back pain and Denies neck pain Neurologic: Denies headache(s) and Denies weakness [facility] Past Medical History Medical History Anemia ASHD (arteriosclerotic heart disease) Benign prostatic hyperplasia with lower urinary tract symptoms Bronchitis CAD (coronary artery disease), 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 CHF (congestive heart failure) Chronic systolic heart failure GARCIA (dyspnea on exertion) FH: coronary artery bypass surgery History of GI bleed History of heart attack History of inguinal hernia Hx of fracture of rib Hypertension Intermittent palpitations Iron deficiency anemia Mixed hyperlipidemia LEANN (obstructive sleep apnea) Other persistent atrial fibrillation Prediabetes Psoriasis Stage 1 chronic kidney disease Stroke Stroke due to embolism Vitamin B12 deficiency Surgical History Surgical History Failed CABG (coronary artery bypass graft) History of inguinal hernia repair Hx of CABG Hx of cardiac cath Hx of heart artery stent Family History Family History Father Family history of diabetes mellitus in first degree relative Social History Social History Smoking status: Never smoker Second hand tobacco smoke exposure: Yes Alcohol intake: never Substance use: never Substance use type: does not use Gender identity (if verbalized by the patient): Male Spiritual care concerns: No Exam Const: General: no acute distress and ill appearing Orientation/consciousness: oriented to person, oriented to place, oriented to time and patient oriented x3 HENMT: Head: normocephalic Ears: external ears normal General nose exam: Normal external nose present Eyes: General: appearance normal, both eyes and all related structures Conjunctivae: conjunctivae normal Neck: Neck: normal visual inspection and full ROM Chest: Chest palpation & inspection: normal inspection of the chest and no tenderness Resp: Effort & Inspection: normal respiratory effort Auscultation: clear to auscultation bilaterally Cardio: Rate: regular rate Rhythm: abnormal rhythm irregularly irregular GI: GI Palp: No abdominal tende
[2020-08-29 17:26] LABS: Basophils Percent Auto 0.1 % (0.2-1.2); Eosinophils Absolute Auto 0.5 K/mm3 (0-0.3); Eosinophils Percent Auto 6.6 % (0-4.4); Hematocrit 29.2 % (42.0-52.0); Hemoglobin 9.6 g/dL (14.0-18.0); Immature Granulocyte Absolute 0.05 K/mm3 (0.00-0.031); Immature Granulocyte Percent A 0.7 % (0-0.5); Lymphocytes Absolute Auto 1.77 K/mm3 (0.9-3.2); Lymphocytes Percent Auto 24.2 % (18.3-44.2); Mean Corpuscular HGB Conc 32.9 g/dl (32-36); Mean Corpuscular Hemoglobin 35.3 pg (26-34); Mean Corpuscular Volume 107.4 fl (80-100); Mean Platelet Volume 11.3 fl (7.4-10.4); Monocytes Absolute Auto 0.5 K/mm3 (0.1-0.6); Monocytes Percent Auto 7.3 % (2.6-8.5); Neutrophils Absolute Auto 4.5 K/mm3 (1.3-6.7); Neutrophils Percent Auto 61.1 % (45.5-73.1); Platelet Count Result 234 k/mm3 (150-375); Red Blood Count 2.72 M/mm3 (4.6-6.20); Red Cell Distribution Width 15.9 % (11.5-14.5); White Blood Count 7.3 K/mm3 (4.5-10.0)
[2020-08-29] MEDS: FUROSEMIDE INJ 40 MG/4 ML VIAL IV PUSH (17:27)
[2020-08-29 17:42] LABS: Alanine Aminotransferase 17 U/L (4-50); Albumin Level 3.1 g/dL (3.5-5.1); Alkaline Phosphatase 121 U/L (38-126); Anion Gap 4 mmol/L (8-16); Aspartate Amino Transferase 33 U/L (17-59); Bilirubin,Total 0.8 mg/dL (0.2-1.3); Blood Urea Nitrogen 27 mg/dL (9-20); Calcium 8.8 mg/dL (8.4-10.2); Carbon Dioxide 35 mmol/L (22-30); Chloride 100 mmol/L (98-107); Estimated CRCL calculation 31 ml/min; Estimated Glomerular Filt Rate 44; Glucose 122 mg/dL (75-110); Potassium 3.9 mmol/L (3.4-5.0); Sodium 139 mmol/L (137-145)
[2020-08-29 17:49] LABS: NT Pro B Type Natriuretic Pept 3870 PG/ML (5-100)
--- NOTE | 2020-08-29 19:00 | PM.IMHP ---
H&P: HPI History of Present Illness Date/Time: 08/29/20 19:00 Chief Complaint: Shortness of breath and weakness. Narrative: Armen Felipe is an 89-year-old male with multiple medical problems including coronary artery disease, systolic congestive heart failure, hypertension, anemia, chronic kidney disease stage 3, paroxysmal atrial fibrillation on long-term anticoagulation, and several other comorbidities who presented to the emergency department earlier today from home with complaints of shortness of breath and weakness. He is bag when describing his symptoms and it is not easy to get a good history from him. He is known to the hospitalist service with a recent admission in which she was treated for a CHF exacerbation, found to have COVID-19 as well. He was able to be discharged home on 08/25/2020 and it sounds as though he has been weak since that time and he has had increasing shortness of breath over the past couple of days. He continues to have a cough which is nonproductive. His appetite has not been great and he reports feeling a little dehydrated. No fever, chills, sweats, chest pain, orthopnea, PND, or lower extremity edema. His appetite has been fair with some nausea but no vomiting. No diarrhea or dysuria. No syncope or near syncope. Review of Systems Review of Systems: Narrative: Twelve systems were reviewed with pertinent positives and negatives as per HPI. His now has COVID but seems to be doing well. He denies anosmia and dysgeusia. No dysphagia or concerns for aspiration. No abdominal pain. No diarrhea. No dysuria. Except as documented, all other systems were reviewed and are negative. [facility] Past Medical History Medical History (Updated 08/29/20 @ 23:58 by Leeanne Watkins PA-C) Anemia Chronic macrocytic anemia. 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 Coronary artery disease History of myocardial infarction, status post CABG. COVID-19 (~08/2020) Current use of intermediate anticoagulation History of GI bleed History of rib fracture Hypertension Intermittent palpitations Iron deficiency anemia Left bundle branch block Mixed hyperlipidemia Obstructive sleep apnea Persistent atrial fibrillation Prediabetes Psoriasis Stage 3 chronic kidney disease Baseline creatinine between 1.3 and 1.70. Vitamin B12 deficiency Surgical History Surgical History (Updated 08/29/20 @ 23:51 by Leeanne Watkins PA-C) History of cardiac catheterization (~07/2016) PTCA and stent placement in SVG where it anastomosis to RCA. History of inguinal hernia repair Status post coronary artery bypass grafts x 5 (~1992) Family History Family History (Updated 08/29/20 @ 23:52 by Leeanne Watkins PA-C) Father Diabetes mellitus Acute myocardial infarction Sibling Coronary artery disease Mother Diabetes mellitus Chronic kidney disease Social History Social History (Updated 08/29/20 @ 23:53 by Leeanne Watkins PA-C) Social History: The patient is but remarried within the last 5 years or so. He lives in [place] and has 4 grown children. He smoked remotely when he was young man. No alcohol or illicit substance abuse. Spiritual care concerns: No (Restorationism) Meds Home Medications and Allergies Home Medications Medication Instructions Recorded Confirmed Type folic acid 20 mg capsule 20 mg PO HS 07/17/19 08/29/20 History garlic 300 mg PO DAILY 07/17/19 08/29/20 History omega-3 fatty acids See Rx Instructions .ROUTE .COMPLEX 07/17/19 08/29/20 History furosemide 40 mg tablet 40 mg PO DAILY #270 tablet 01/06/20 08/29/20 Rx nitroglycerin 0.4 mg sublingual 0.4 mg SUBLINGUAL Q5M PRN #25 05/30/20 08/29/20 R
--- NOTE | 2020-08-29 20:40 | ADMGEN ---
This patient, Armen Felipe, was admitted to [facility] Surg Room 312-01. Patient/family oriented to hospital policies and general routines including ID bracelet, bed and alarms, visiting hours, pain management, procedures, bathroom and other care routines, personal items, smoking policy, room service/diet, and visiting hours. Information on how to activate the Rapid Response Team has been discussed. Patient/Family are encouraged to report perceived risks to care and to ask questions if they do not understand what they are told or what they should do.
[2020-08-29 21:33] LABS: Troponin I 0.033 ng/mL (0.000-0.034)
[2020-08-30] VITALS: PULSE 69
[2020-08-30 01:10] LABS: Troponin I 0.035 ng/mL (0.000-0.034)
[2020-08-30 04:00] VITALS: BP 106/53; PULSE 67; PULSE 93; RESP 16; TEMP 36.9; O2SAT 96
[2020-08-30 06:19] LABS: Hematocrit 26.2 % (42.0-52.0); Hemoglobin 8.6 g/dL (14.0-18.0); Mean Corpuscular HGB Conc 32.8 g/dl (32-36); Mean Corpuscular Hemoglobin 34.3 pg (26-34); Mean Corpuscular Volume 104.4 fl (80-100); Mean Platelet Volume 11.4 fl (7.4-10.4); Platelet Count Result 228 k/mm3 (150-375); Red Blood Count 2.51 M/mm3 (4.6-6.20); Red Cell Distribution Width 15.7 % (11.5-14.5); White Blood Count 6.9 K/mm3 (4.5-10.0)
[2020-08-30 06:34] LABS: Alanine Aminotransferase 13 U/L (4-50); Albumin Level 2.7 g/dL (3.5-5.1); Alkaline Phosphatase 111 U/L (38-126); Anion Gap 2 mmol/L (8-16); Aspartate Amino Transferase 29 U/L (17-59); Bilirubin,Total 0.7 mg/dL (0.2-1.3); Blood Urea Nitrogen 25 mg/dL (9-20); Calcium 8.2 mg/dL (8.4-10.2); Carbon Dioxide 32 mmol/L (22-30); Chloride 102 mmol/L (98-107); Estimated CRCL calculation 39 ml/min; Estimated Glomerular Filt Rate 58; Glucose 92 mg/dL (75-110); Magnesium 2.4 mg/dL (1.6-2.3); Potassium 3.3 mmol/L (3.4-5.0); Sodium 136 mmol/L (137-145)
[2020-08-30 06:58] LABS: Iron 47 ug/dL (49-181)
[2020-08-30 07:08] LABS: Percent Iron Saturation 24 % (20-50)
[2020-08-30 07:38] LABS: Folic Acid > 20.0 ng/mL (2.76->20); Vitamin B12 > 1000.0 pg/mL (239-931)
[2020-08-30 08:00] VITALS: BP 102/42; PULSE 76; PULSE 80; RESP 20; TEMP 37.1; O2SAT 95
[2020-08-30] MEDS: FUROSEMIDE 40 MG TABLET PO (08:34)
[2020-08-30] MEDS: carvediloL 25 MG TABLET PO (08:34)
[2020-08-30] MEDS: BENZONATATE 100 MG CAPSULE 200 MG PO (08:34)
[2020-08-30] MEDS: hydrALAZINE 12.5 MG TABLET PO (08:34)
[2020-08-30] MEDS: OMEGA 3 POLYUNSAT FATTY ACIDS 1 GM CAP PO (08:35)
[2020-08-30] MEDS: POTASSIUM CHLORIDE 20 MEQ PACKET (FOR LIQUID) 40 MEQ PO (08:35)
[2020-08-30] MEDS: APIXABAN 2.5 MG TABLET PO (08:35)
[2020-08-30 09:35] VITALS: PULSE 77; RESP 18; O2SAT 95
[2020-08-30 12:00] VITALS: BP 84/50; PULSE 68; PULSE 80; RESP 20; TEMP 37.2; O2SAT 96
--- NOTE | 2020-08-30 13:09 | PM.DS ---
DS: Admitting Diagnosis Admitting Diagnosis Admitting Diagnosis: Shortness of breath, generalized weakness DS: Discharge Diagnosis Discharge Diagnosis (1) Generalized weakness: Code(s): R53.1 - Weakness Status: Acute Assessment and Plan: The patient was admitted to the hospitalist service overnight as he is still not feeling well from his recent hospitalization in which she was treated for acute on chronic systolic congestive heart failure. At that time he was also noted to be positive for COVID-19. He is on RA currently and appears to have no documentation that he was hypoxic since arrival for this hospital stay. CXR shows improving airspace disease consistent with resolving pneumonia and/or edema. He appears euvolemic if not a little dry thus we have held on further diuresis. We have encouraged him to have adequate oral intake. PT/OT evals performed today; CC following and has arranged for HH therapy after discharge. I will ask physical therapy to work with him and evaluate him for possible rehab. Given his fairly recent COVID diagnosis he will be placed in isolation. His blood pressure reviewed and they stable. Anemia is stable on review of previous labs. I do not see that he has had iron studies or B12 and folates done recently, thus will check those. He remains in atrial fibrillation and is rate controlled. Continue Eliquis for stroke prophylaxis. The rest of his home medications will be reviewed and resumed as appropriate. (2) Shortness of breath: Code(s): R06.02 - Shortness of breath Status: Acute Assessment and Plan: Likely related to resolving COVID pneumonia See above plan F/u with PCP (3) Chronic combined systolic and diastolic congestive heart failure: Code(s): I50.42 - Chronic combined systolic (congestive) and diastolic (congestive) heart failure Status: Inactive Assessment and Plan: Appears well compensated if not a bit dry. 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: Code(s): Z79.01 - group home (current) use of anticoagulants Status: Acute Assessment and Plan: No signs/symptoms of acute blood loss see above a/p (8) Mixed hyperlipidemia: Code(s): E78.2 - Mixed hyperlipidemia Status: Acute Assessment and Plan: Continue home meds (9) Stage III chronic kidney disease: Code(s): N18.3 - Chronic kidney disease, stage 3 (moderate) Status: Acute Assessment and Plan: Appears to be at baseline Cr (10) Hypertension: Code(s): I10 - Essential (primary) hypertension Status: Acute Assessment and Plan: BP is a bit soft this afternoon although he states he is asymptomatic; likely related to current COVID infection/illness Instructed patient to hold his home hydralazine and check BP at home daily and to 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
--- NOTE | 2020-08-30 14:47 | PC.NURSE ---
Pt has discharge orders. Pt has been agitated all shift because he does not feel like he should have had to stay the night in the hospital. Pt was irritated with all care. Pt called his family to come get him, before his discharge had been complete and was then upset they were in the parking lot waiting and we weren't faster. Pt would not sign the discharge paperwork, stating, he shouldn't have been here to begin with, and I will have my family look at it . Pt had IV removed, and discharge paperwork and home meds were placed in a belongings bag and given to the pt.
== END 2020-08-30 02:45 | disposition home health service (06) ==
LOC: ANHED 18:53 → ANH3MEDSUR 19:40
PROVIDERS: Physician Assistant; Admitting Provider Family Medicine; Emergency Provider Emergency Medicine; PCP Internal Medicine; Visit Provider Internal Medicine
DX: U07.1 COVID-19 (principal); J12.89 Other viral pneumonia; I13.0 Hypertensive heart and chronic kidney disease with heart failure and stage 1 through stage 4 chronic kidney disease, or unspecified chronic kidney disease; R06.02 Shortness of breath; R53.1 Weakness; D63.1 Anemia in chronic kidney disease; E78.2 Mixed hyperlipidemia; I48.91 Unspecified atrial fibrillation; I50.42 Chronic combined systolic (congestive) and diastolic (congestive) heart failure; I25.10 Atherosclerotic heart disease of native coronary artery without angina pectoris; N18.30 Chronic kidney disease, stage 3 unspecified; Z79.01 Long term (current) use of anticoagulants
CPT/HCPCS: 36415; 71045; 80053; 82607; 82728; 82746; 83540; 83550; 83735; 83880; 84443; 84484; 85025; 85027; 93005; 96374; 97161; 97165; 99285; A9270; G0378; J1940

== ENCOUNTER 2020-11-10 10:16 | Outpatient (CLI) | payer MEDICARE, SELFPAY ==
--- NOTE | ~2020-11-10 | XR_ITS ---
EXAMINATION: XR barium swallow modified DATE: 11/10/2020 11:27 INDICATION: Dysphagia, unspecified TECHNIQUE: Modified barium esophagram was performed by myself to administered fluoroscopy, in conjun ction with speech pathologist who administered barium in varying consistencies as per speech patholog ist documentation. This was recorded on tape. A single fluoroscopic spot image was recorded. The DAP for this procedure was 1.22 Gycm2. Fluoroscopy exposure time was 2.1 minutes. FINDINGS: Oral stage: Adequate function. Pharyngeal phase: Adequate function. Laryngeal penetration: None. Aspiration: None. Laryngeal sensitivity: Present. IMPRESSION: Normal modified barium swallow. Please refer to speech pathologist findings and specific feeding recommendations. Reviewed, dictated and finalized at location A. SUPERINTENDENT
--- NOTE | 2020-11-10 16:07 | STOPEVAL ---
MODIFIED BARIUM SWALLOW EVALUATION: Thank you for referring Armne Felipe to [facility].? Attending Provider: Robert Butler DO FAX # [phone] Outpatient Past Medical History Past Medical History Source of Past Medical History Patient,Recalled from Previous Visit, Confirmed with Patient /Family Neurological History Hx Cerebrovascular Accident (CVA) Yes: May 20, 2019 Cardiovascular History Hx Atrial Fibrillation Yes Hx Cardiac Catheterization Yes Hx Cardiac Surgery Yes Hx Chest Pain Yes Hx Congestive Heart Failure Yes Hx Coronary Artery Bypass Graft Yes: 1992 Hx Coronary Artery Disease Yes Hx Hypercholesterolemia Yes Hx Hypertension Yes Respiratory History Hx Sleep Apnea Yes Hx Other Respiratory Disorders Yes: COVID + 08/2020 Gastrointestinal History Hx Gastrointestinal Disorders No Significant History Genitourinary History Hx Renal Disease Yes Musculoskeletal History Hx Arthritis Yes Hx Fractures Yes: ribs, nose Hematological History Hx Anemia Yes Endocrine History Hx Endocrine Disorders No Significant History HEENT History Hx Cataracts Yes: bilateral cataract extractions Hx Dental Problems Yes: upper dentures Hx Ear Surgery Yes: bilateral cataract extractions Integumentary History Hx Excision Skin Lesion Yes: skin cancers on forehead Hx Psoriasis Yes Reproductive History Hx Reproductive Disorders No Significant History Psychosocial History Hx Psychiatric Disorders No Significant History Pain History History of Any Previous or Ongoing No Significant History Instance of Pain Anesthesia History Hx Anesthesia Reactions No Significant History Other History Hx Cancer Yes: skin cancer removed from forehead Evaluation Information Problem Diagnosis Pt reports liquid go down the wrong pipe Onset couple months ago Previous Treatments Previous Treatments For This Problem denies having any previous ST Prior Level of Function Prior Swallow Level Prior Intake Method Oral Prior Diet Regular (Level 7 Diet) Prior Liquid Consistency Thin (Level 0 Diet) Pain Assessment Timing of Pain Assessment Timing of Pain Assessment Assessment Self Report Self Report Pain Level 0 Pain Score Pain Score 0: Self Report Modified Barium Swallow Evaluation Recent Swallowing History Reports Dysphagia Yes: liquids go down the wrong pipe Onset of Dysphagia couple m
== END 2020-11-10 10:17 | disposition home or self-care (01) ==
PROVIDERS: PCP Internal Medicine; Visit Provider Internal Medicine
DX: R13.10 Dysphagia, unspecified (principal)
CPT/HCPCS: 92611

== ENCOUNTER 2020-11-15 08:55 | Inpatient (IN) | payer MEDICARE, SELFPAY ==
[2020-11-15] VITALS (29 sets, daily range): BP systolic 97–136; BP diastolic 48–79; PULSE 65–90; RESP 18–32; TEMP 36.6–37.4; O2SAT 79–100; BMI 25.0
--- NOTE | ~2020-11-15 | US_ITS ---
EXAMINATION: US venous doppler [facility] DATE: 11/15/2020 10:49 INDICATION: Lower limb swelling. TECHNIQUE: Grayscale ultrasound images without and with compression and Doppler ultrasound images of the bilateral lower extremity veins were obtained. COMPARISON: Ultrasound 02/04/2008 FINDINGS: The visualized portions of right common femoral vein, profunda (deep) femoral vein, femoral vein, pop liteal vein, peroneal veins, posterior tibial veins, and greater saphenous vein outflow are patent. The visualized portions of left common femoral vein, profunda femoral vein, femoral vein, popliteal v ein, peroneal veins, posterior tibial veins, and greater saphenous vein outflow are patent. IMPRESSION: 1. No deep venous thrombosis. Reviewed, dictated and finalized at location A.
--- NOTE | ~2020-11-15 | XR_ITS ---
EXAMINATION: XR chest 2V DATE: 11/19/2020 08:14 INDICATION: Pneumonia TECHNIQUE: frontal and lateral views of the chest were obtained. COMPARISON: Chest radiograph dated 11/17/[address] dated 11/15/2020 FINDINGS: [place] diffuse bilateral patchy airspace opacities with mild improvement in the lower lung zones. Small bilateral pleural. No pneumothorax. There are scattered bilateral calcified pulmonary nodules c onsistent with old granulomatous disease. Cardiomegaly. Median sternotomy wires and mediastinal surgi ye clips are seen, likely from prior coronary artery bypass grafting. IMPRESSION: 1. Slight improvement in bilateral patchy airspace opacities which could represent pneumonia and/or p ulmonary edema. 2. Small bilateral pleural effusions. 3. Cardiomegaly. Reviewed, dictated and finalized at location A. IMPRESSION: 1. Slight improvement in bilateral patchy airspace opacities which could repres ent pneumonia and/or pulmonary edema. 2. Small bilateral pleural effusions. 3. Cardiomegaly.
--- NOTE | ~2020-11-15 | XR_ITS ---
EXAMINATION: XR chest 1V portable EXAM DATE: 11/15/2020 09:54 INDICATION: Shortness of breath, hypoxia this morning. TECHNIQUE: Portable AP frontal chest x-ray was obtained. Comparison is made to prior examination from 08/29/2020. FINDINGS: Patient had airspace disease on x-ray since August. Mild interval progression in these op acities compared to most recent prior exam, with moderate amount of opacity throughout both lungs. Th is may be the same process that was going on on previous examination. Could be infection or edema, or chronic processes. Sternotomy wires are present without findings to suggest sternal dehiscence. The cardiomediastinal si lhouette is prominent but magnified on this AP technique. Possible small pleural effusions. No pneumo thorax. IMPRESSION: Diffuse bilateral airspace disease, could be acute or chronic infection, edema or other c hronic process. Reviewed, dictated and finalized at location A. IMPRESSION: Diffuse bilateral airspace disease, could be acute or chronic infec tion, edema or other chronic process.
--- NOTE | ~2020-11-15 | CT_ITS ---
EXAMINATION: CTA chest PE protocol EXAM DATE: 11/15/2020 11:30 INDICATION: Chest pain. Shortness of breath. TECHNIQUE: Spiral CTA of the chest (pulmonary arteries) was performed with 100 cc Omnipaque 350 intr avenous contrast injection. Images were acquired during the pulmonary arterial phase. Coronal maxi mum intensity projection 3D-reconstructions were created by the technologist on dedicated workstation . Axial, coronal and sagittal reformatted images were reviewed. The dose-length product (DLP) for t his examination was 497.25 mGy-cm. The exposure was tailored according to patient size (auto mA exp osure control), and iterative reconstruction (ASIR) was used as additional dose reduction technique. Correlation is made to chest x-ray earlier same day. Comparison is made to prior examination from [facility] [place] 09/03/2014. FINDINGS: There is cardiomegaly and pulmonary vascular congestion. The main, central pulmonary arteri es are dilated which can indicate elevated pulmonary arterial pressure, pulmonary arterial hypertensi on. There are no pulmonary emboli in the 1st through 3rd order (central and interlobar) pulmonary ar teries. Some loss of attenuation in the segmental pulmonary arteries due to respiratory motion, but no intraluminal filling defects suspected. No thoracic aortic dissection. There is diffuse airspace disease, nearly solid density. Could be COVI D pneumonia, other infectious process or edema. Can't exclude cryptogenic organizing pneumonia or oth er chronic process, but the CT in 2014 was essentially normal. There is moderate right pleural effusi on and small left pleural effusion. There are scattered granulomata. Interlobular septal thickening. Tracheobronchial tree is patent. Mediastinal lymphadenopathy, probably reactive. There is no pneu mothorax. There are sternotomy wires, and cardiac/coronary surgical changes. Correlate with prior history. Upper abdomen is unremarkable. There is thoracic spondylosis without osteoblastic or ost eolytic lesions identified. IMPRESSION: 1. Limited segmental evaluation, but no pulmonary emboli are suspected. 2. Diffuse airspace disease and interlobular septal thickening. More likely acute than chronic, cons ider COVID pneumonia, other infectious process and/or edema. 3. Mediastinal lymphadenopathy, probably reactive. 4. Moderate right, small left pleural effusions. 5. Cardiomegaly, pulmonary arterial hypertension. Reviewed, dictated and finalized at location A. IMPRESSION: 1. Limited segmental evaluation, but no pulmonary emboli are suspected. 2. Diffuse airspace disease and interlobular septal thickening. More likely ac candy than chronic, consider COVID pneumonia, other infectious process and/or sebastian ma. 3. Mediastinal lymphadenopathy, probably reactive. 4. Moderate right, small left pleural effusions. 5. Cardiomegaly, pulmonary arterial hypertension.
--- NOTE | ~2020-11-15 | XR_ITS ---
XR chest 2V 11/21/2020 09:19 Indication: CHF versus pneumonia. Procedure: AP and lateral views of the chest Comparison: Comparison to multiple prior studies sequentially, with oldest reviewed study dated 11/15. Findings: Status post median sternotomy for CABG. Cardiomegaly. Small pleural effusions. There is imp roving bilateral airspace disease most prominent peripherally, left greater than right. No pneumothor ax. No acute osseous abnormality. Impression: 1: Improving bilateral airspace disease which may represent resolving pneumonia or edema. Reviewed, dictated and finalized at location A. Impression: 1: Improving bilateral airspace disease which may represent resolving pneumonia or edema.
--- NOTE | ~2020-11-15 | XR_ITS ---
EXAMINATION: XR chest 2V DATE: 11/17/2020 07:50 INDICATION: Shortness of breath. Pleural effusions. TECHNIQUE: Frontal and lateral views of the chest were obtained. COMPARISON: Chest single view 11/15/2020, chest CT 11/15/2020 FINDINGS: There are airspace and interstitial opacities throughout the lungs bilaterally. There is a small left pleural effusion. No pneumothorax. Cardiomegaly is noted. Median sternotomy wires and medi astinal surgical clips are seen, likely from prior coronary artery bypass grafting. IMPRESSION: 1. Diffuse lung disease with improvement on the right and worsening on the left, consistent with pulm onary edema versus pneumonia. 2. Stable small left pleural effusion. 3. Cardiomegaly. Reviewed, dictated and finalized at location A. IMPRESSION: 1. Diffuse lung disease with improvement on the right and worsening on the left , consistent with pulmonary edema versus pneumonia. 2. Stable small left pleural effusion. 3. Cardiomegaly.
--- NOTE | 2020-11-15 09:13 | ECG_ITS ---
Measurements Intervals [place] Rate: 84 P: MO: 0 QRS: -9 QRSD: 171 T: 163 QT: 435 QTc: 516 Interpretive Statements ATRIAL FIBRILLATION LEFT BUNDLE BRANCH BLOCK BASELINE WANDER- V1-V6 ABNORMAL ECG Electronically Signed On 11-15-2020 9:44:55 CDT by Darrel Wade D.O.
--- NOTE | 2020-11-15 09:16 | ED.SOB ---
HPI - SOB/Dyspnea General Chief Complaint: Shortness of Breath/Dyspnea Stated Complaint: sob Time Seen by Provider: 11/15/20 09:01 Source: patient Mode of arrival: ambulatory Limitations: no limitations History of Present Illness HPI Narrative: This is an 85 year old male with history of CHF, asthma who presents from home for evaluation of shortness of breath. He states he has long standing history of shortness of breath but it got worse at 3 am this morning. His states his oxygen was low when she checked it at home. His oxygen saturation was 77% on room air on arrival to ER today. HE denies associated cough, fever, chills, nausea, vomiting. His he has increased swelling to bilateral leg. He received his second dose of his covid Vaccine on Saturday. Related Data Home Medications Medication Instructions Recorded Confirmed garlic 300 mg PO DAILY 07/17/19 11/15/20 Eliquis 2.5 mg PO BID 08/19/20 11/15/20 atorvastatin 40 mg PO HS 08/19/20 11/15/20 doxazosin 8 mg PO HS 08/19/20 11/15/20 albuterol sulfate [Proventil HFA] 2 puff INHALATION Q6HRT PRN 08/29/20 11/15/20 hydralazine 12.5 mg PO BID 08/29/20 11/15/20 omega-3 fatty acids [Fish Oil] 500 mg PO DAILY 11/15/20 11/15/20 Allergies Allergy/AdvReac Type Severity Reaction Status Date / Time No Known Allergies Allergy Verified 11/15/20 09:11 Review of Systems Review of Systems: All systems reviewed & are unremarkable except as noted in HPI and below Constitutional: Constitutional: Denies chills and Denies fever(s) Cardiovascular: Cardiovascular: Denies chest pain Respiratory: Respiratory: Denies cough and Reports dyspnea Gastrointestinal: Gastrointestinal: Denies abdominal pain, Denies nausea and Denies vomiting [facility] Past Medical History Medical History Anemia Chronic macrocytic anemia. 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 Coronary artery disease History of myocardial infarction, status post CABG. 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 Vitamin B12 deficiency Surgical History Surgical History History of cardiac catheterization (~07/2016) PTCA and stent placement in SVG where it anastomosis to RCA. History of inguinal hernia repair Status post coronary artery bypass grafts x 5 (~1992) Family History Family History Father Diabetes mellitus Acute myocardial infarction Sibling Coronary artery disease Mother Diabetes mellitus Chronic kidney disease Social History Social History Social History: The patient is but remarried within the last 5 years or so. He lives in [place] and has 4 grown children. He smoked remotely when he was young man. No alcohol or illicit substance abuse. Smoking status: Never smoker Alcohol intake: never Substance use: never Gender identity (if verbalized by the patient): Male Spiritual care concerns: No Exam Const: General: alert and ill appearing Orientation/consciousness: patient oriented x3 Eyes: EOM: EOMs intact bilaterally Resp: Effort & Inspection: not labored, no retractions and tachypneic Auscultation: crackles Cardio: Rate: regular r
[2020-11-15 09:30] LABS: Basophils Percent Auto 0.5 % (0.2-1.2); Eosinophils Absolute Auto 0.5 K/mm3 (0-0.3); Eosinophils Percent Auto 7.4 % (0-4.4); Hematocrit 27.9 % (42.0-52.0); Hemoglobin 8.8 g/dL (14.0-18.0); Immature Granulocyte Absolute 0.02 K/mm3 (0.00-0.031); Immature Granulocyte Percent A 0.3 % (0-0.5); Lymphocytes Absolute Auto 1.75 K/mm3 (0.9-3.2); Lymphocytes Percent Auto 27.6 % (18.3-44.2); Mean Corpuscular HGB Conc 31.5 g/dl (32-36); Mean Corpuscular Hemoglobin 34.4 pg (26-34); Mean Platelet Volume 10.7 fl (7.4-10.4); Monocytes Absolute Auto 0.6 K/mm3 (0.1-0.6); Monocytes Percent Auto 8.8 % (2.6-8.5); Neutrophils Absolute Auto 3.5 K/mm3 (1.3-6.7); Neutrophils Percent Auto 55.4 % (45.5-73.1); Platelet Count Result 184 k/mm3 (150-375); Red Blood Count 2.56 M/mm3 (4.6-6.20); Red Cell Distribution Width 16.5 % (11.5-14.5); White Blood Count 6.3 K/mm3 (4.5-10.0)
[2020-11-15 09:33] LABS: Alveolar/Arterial O2 Gradient 74.5 mmHg; Base Excess ABG 0.1 mEq/l (+/-2.0); Carboxyhemoglobin 0.3 % THb (0-2.0); Fractional Inspired Oxygen 28 %; HCO3 ABG 23.6 mEq/l (22.0-26.0); Methemoglobin ABG 0.1 %THb (0-1.5); Oxygen Content ABG 12.2 %vol (16.0-22.0); Oxyhemoglobin 95.5 % THb (90.0-100.0); PCO2 ABG 33.9 mmHg (35.0-45.0); PO2 ABG 85.1 mmHg (80.0-100.0); PO2 FiO2 Ratio Arterial Blood 3.04 %; Reduced Hemoglobin 4.1 %THb (0-5.0); pH ABG 7.461 (7.350-7.450)
[2020-11-15 09:34] LABS: Device NASAL CANNULA; Modified Allen's Test Pass; Site Drawn LEFT RADIAL
[2020-11-15 09:41] LABS: Anion Gap 4 mmol/L (8-16); Blood Urea Nitrogen 24 mg/dL (9-20); Calcium 8.5 mg/dL (8.4-10.2); Carbon Dioxide 29 mmol/L (22-30); Chloride 109 mmol/L (98-107); Estimated CRCL calculation 32 ml/min; Estimated Glomerular Filt Rate 48; Glucose 113 mg/dL (75-110); Potassium 4.3 mmol/L (3.4-5.0); Sodium 142 mmol/L (137-145)
[2020-11-15 09:53] LABS: NT Pro B Type Natriuretic Pept 5320 PG/ML (5-100)
[2020-11-15 10:14] LABS: INR 1.3
[2020-11-15 10:15] LABS: Partial Thromboplastin Time 38.6 SECONDS (22.3-36.8)
[2020-11-15 10:17] LABS: D Dimer 2.77 ug/mL (<0.48)
[2020-11-15] MEDS: FUROSEMIDE INJ 40 MG/4 ML VIAL IV PUSH ×2 (11:47→20:27)
[2020-11-15 13:43] LABS: Troponin I 0.026 ng/mL (0.000-0.034)
--- NOTE | 2020-11-15 13:58 | PC.NURSE ---
This patient, Armen Felipe, was admitted to 3 [facility] Surg Room 315-01. Patient/family oriented to hospital policies and general routines including ID bracelet, bed and alarms, visiting hours, pain management, procedures, bathroom and other care routines, personal items, smoking policy, room service/diet, and visiting hours. Information on how to activate the Rapid Response Team has been discussed. Patient/Family are encouraged to report perceived risks to care and to ask questions if they do not understand what they are told or what they should do.
--- NOTE | 2020-11-15 14:17 | PC.NURSE ---
Attempted to get POA paperwork from [facility], there is no POA paperwork in patient's records at this [facility].
--- NOTE | 2020-11-15 16:18 | PM.IMHP ---
H&P: HPI History of Present Illness Date/Time: 11/15/20 16:18 Armen was admitted today for shortness of breath. He stated that he woke up abruptly last night feeling like he couldn't breath, had 2 sharp stabbing right sided pain which then completely quickly resolved. He stated that he checked his SpO2 on his home pulse oximeter and found it to be 77% (but the ED note says that was his SpO2 upon arrival to ED). He states that his assited him with checking his Oxygen level. He does not wear home oxygen, nor has he had a sleep study completed. He had COVID infection in August 2020. He received his 2nd Moderna COVID vaccine this Saturday 11/11, felt bad and weak the next day on Saturday, then Saturday felt better, and then yesterday on Saturday was again weak and couldn't get ambulate safely. He decided to come to the ED today due to his SOB, increasing leg/ankle swelling bilaterally, feeling weak and poorly. He states that he had chills over the weekend, but denies fevers, cough, or worse runny nose (has chronic nasal drainage). Denies N/V/constipation. He states that he did have loose stools on Saturday, to the extent that he was incontinent of stool and unable to make it to the bathroom in time. He is an 85 year old male with history of CHF, asthma, COVID infection hx., PTCA and stent placement, inguinal hernia repair, CABG x 5 (~1992), and HTN. Will test for active COVID infection - SARS pending. Started on Azithro for pneumonia noted on CTA chest, probiotic, stool culture, elevated Dimer - PE ruled out by CTA chest, continue Eliquis, continue lasix due to pulm congestion/edema and pleural effusions noted on CTA chest and elevated BNP of 5320, add incentive spirometer, add IOANA hose, nocturnal O2 apnea study, ECHO ordered, Troponin x 2 negative today, and added dietary supplements for poor appetite. Continue Telemetry. Repeat EKG in morning. Chief Complaint: Shortness of Breath Review of Systems Review of Systems: All systems reviewed & are unremarkable except as noted in HPI and below Constitutional: Constitutional: Reports as per HPI, Reports chills, Reports fatigue, Denies increased appetite (decreased appetite since COVID in 2019), Reports lethargy, Reports malaise, Reports poor appetite and Reports weakness Comments: feeling weak and malaise, woke up abruptly from sleep feeling like he could not breath Eyes: Eyes: Reports as per HPI, Denies exophthalmos and Denies loss of vision ENT: Reports as per HPI, Reports Normal hearing present, Denies bleeding gums, Denies dizziness, Denies mouth pain, Reports nasal discharge (chronic per patient report), Denies nose pain and Reports post nasal drip (chronic per patient report) Cardiovascular: Cardiovascular: Reports as per HPI, Reports chest pain (abruptly awakened w/L-sided lower chest stabbing pain, resolved quickly), Reports pedal edema, Denies leg ulcers, Reports leg edema, Denies radiating jaw, neck or arm pain, Reports dyspnea, Reports orthopnea and Reports paroxysmal nocturnal dyspnea Comments: abruptly awakened w/L-sided lower chest stabbing pain twice, then resolved quickly Respiratory: Respiratory: Reports as per HPI, Denies chest congestion, Denies cough, Denies hemoptysis, Denies pain with cough, Reports dyspnea and Denies wheezing Gastrointestinal: Gastrointestinal: Reports as per HPI, Denies abdominal pain, Denies belching, Denies melena, Denies bloating, Reports change in bowel habits, Reports change in stool character, Denies constipation, Reports fecal incontinence (on Saturday, when he was feeling weak), Reports diarrhea, Reports loose stools, Denies nausea, Denies vomiting and Denies hematemesis Genitourinary: Genitourinary: Reports as per HPI and Denies flank pain Musculoskeletal: Musculoskeletal: Reports as per HPI and Denies numbness Integumentary/Breasts: Skin/Breast: Reports as per HPI, Reports swelling, Denies pruritus, Denies new lesions and Denies unusual bruising
[2020-11-15] MEDS: carvediloL 25 MG TABLET PO (18:50)
[2020-11-15] MEDS: ATORVASTATIN 40 MG TABLET PO (20:25)
[2020-11-15] MEDS: DOXAZOSIN MESYLATE 4 MG TABLET 8 MG PO (20:27)
[2020-11-15] MEDS: APIXABAN 2.5 MG TABLET PO (20:28)
[2020-11-15] MEDS: guaiFENesin 12 HR 600 MG TABCR 1200 MG PO (20:28)
[2020-11-15] MEDS: hydrALAZINE 12.5 MG TABLET PO (20:29)
[2020-11-15 23:58] LABS: SARS-CoV-2 RNA PCR Negative
[2020-11-16] VITALS (13 sets, daily range): BP systolic 90–102; BP diastolic 50–53; PULSE 63–96; RESP 16–20; TEMP 36.3–37.4; O2SAT 91–98; BMI 24.5
--- NOTE | 2020-11-16 06:00 | ECHO_ITS ---
Patient Info Name: Armen Felipe Age: 85 years : 1935 Gender: Male Ht: 69 in Wt: 164 lbs BSA: 1.91 m2 HR: 95 bpm BP: 102 / 50 mmHg Technical Quality: Good Exam Date: 11/16/2020 10:25 AM Exam Location: [facility] Pulmonary Exam Room: [facility] Patient Status: Outpatient Admit Date: 11/15/2020 Staff Ordering Physician: Susy Arroyo MD Tray Checker: Oriana Corea RDCS Attending Provider: Smith Lau MD Referring Physician: Cruz GARZA; Exam Type: CA echo doppler color flow Study Info Indications - CHF INCREASE SOB Complete two-dimensional, color flow and Doppler transthoracic echocardiogram is performed. Summary 1. Complete two-dimensional, color flow and Doppler transthoracic echocardiogram is performed. 2. Left ventricular chamber dimension is moderately enlarged. 3. Left ventricular systolic function is moderately reduced, estimated at 40-45%. 4. Left ventricular septal wall motion is abnormal with septal motion related to bundle branch block. 5. The left ventricular diastolic function is abnormal. 6. E/e' 19 is elevated. 7. Left atrial chamber dimension is severely enlarged. 8. Right atrial chamber dimension is mildly enlarged. 9. There is mild aortic valve sclerosis. 10. There is mild aortic valve regurgitation. 11. The mitral valve has mildly calcified annulus. 12. There is moderate mitral valve regurgitation. 13. There is mild tricuspid valve regurgitation. 14. No pulmonary hypertension, estimated pulmonary arterial systolic pressure is 37 mmHg. 15. There is mild pulmonic regurgitation. Left Ventricle E/e' 19 is elevated. Left ventricular chamber dimension is moderately enlarged. Left ventricular systolic function is moderately reduced, estimated at 40-45%. Left ventricular septal wall motion is abnormal with septal motion related to bundle branch block. The left ventricular diastolic function is abnormal. Right Ventricle Right ventricular chamber dimension is normal. Right ventricular systolic function is normal. Left Atria Left atrial chamber dimension is severely enlarged. Right Atria Right atrial chamber dimension is mildly enlarged. Aortic Valve The aortic valve is trileaflet. There is mild aortic valve sclerosis. There is no aortic valve stenosis. There is mild aortic valve regurgitation. Pulmonic Valve There is mild pulmonic regurgitation. Mitral Valve The mitral valve has mildly calcified annulus. There is no mitral valve stenosis. There is moderate mitral valve regurgitation. Tricuspid Valve There is mild tricuspid valve regurgitation. No pulmonary hypertension, estimated pulmonary arterial systolic pressure is 37 mmHg. Pericardium/Pleural There is no pericardial effusion. Inferior Vena Cava Normal inferior vena cava with >50% collapse upon inspiration consistent with normal right atrial pressure, 5 mmHg. Aorta The aortic root size at the sinus of Valsalva is normal. Left Ventricular Outflow Tract Name Value Normal LVOT 2D LVOT Diameter 2.0 cm LVOT Doppler LVOT Peak Gradient 8 mmHg
[2020-11-16 06:24] LABS: Basophils Percent Auto 0.3 % (0.2-1.2); Eosinophils Absolute Auto 0.3 K/mm3 (0-0.3); Eosinophils Percent Auto 4.9 % (0-4.4); Hematocrit 22.9 % (42.0-52.0); Hemoglobin 7.4 g/dL (14.0-18.0); Immature Granulocyte Absolute 0.01 K/mm3 (0.00-0.031); Immature Granulocyte Percent A 0.1 % (0-0.5); Lymphocytes Absolute Auto 1.82 K/mm3 (0.9-3.2); Lymphocytes Percent Auto 27.2 % (18.3-44.2); Mean Corpuscular HGB Conc 32.3 g/dl (32-36); Mean Corpuscular Hemoglobin 33.5 pg (26-34); Mean Corpuscular Volume 103.6 fl (80-100); Mean Platelet Volume 10.9 fl (7.4-10.4); Monocytes Absolute Auto 0.6 K/mm3 (0.1-0.6); Monocytes Percent Auto 8.7 % (2.6-8.5); Neutrophils Absolute Auto 3.9 K/mm3 (1.3-6.7); Neutrophils Percent Auto 58.8 % (45.5-73.1); Platelet Count Result 162 k/mm3 (150-375); Red Blood Count 2.21 M/mm3 (4.6-6.20); Red Cell Distribution Width 16.1 % (11.5-14.5); White Blood Count 6.7 K/mm3 (4.5-10.0)
[2020-11-16 06:36] LABS: Alanine Aminotransferase 12 U/L (4-50); Albumin Level 2.8 g/dL (3.5-5.1); Alkaline Phosphatase 98 U/L (38-126); Anion Gap 4 mmol/L (8-16); Aspartate Amino Transferase 26 U/L (17-59); Bilirubin,Total 0.9 mg/dL (0.2-1.3); Blood Urea Nitrogen 23 mg/dL (9-20); Calcium 7.9 mg/dL (8.4-10.2); Carbon Dioxide 30 mmol/L (22-30); Chloride 102 mmol/L (98-107); Estimated CRCL calculation 36 ml/min; Estimated Glomerular Filt Rate 52; Glucose 97 mg/dL (75-110); Potassium 3.8 mmol/L (3.4-5.0); Sodium 136 mmol/L (137-145)
--- NOTE | 2020-11-16 06:36 | PCRCNOTE ---
apnea study; mdi was not given
[2020-11-16 06:39] LABS: NT Pro B Type Natriuretic Pept 5300 PG/ML (5-100)
[2020-11-16] MEDS: ALBUTEROL SULFATE (*SP) AEROSOL 1 PUFF 2 PUFF INHALATION ×3 (08:09→21:07)
[2020-11-16] MEDS: hydrALAZINE 12.5 MG TABLET PO (09:13)
[2020-11-16] MEDS: OMEGA 3 POLYUNSAT FATTY ACIDS 1 GM CAP PO (09:13)
[2020-11-16] MEDS: APIXABAN 2.5 MG TABLET PO ×2 (09:14→21:17)
[2020-11-16] MEDS: FUROSEMIDE INJ 40 MG/4 ML VIAL IV PUSH ×2 (09:14→21:17)
[2020-11-16] MEDS: guaiFENesin 12 HR 600 MG TABCR 1200 MG PO ×2 (09:14→21:16)
[2020-11-16 12:17] LABS: Hematocrit 26.8 % (42.0-52.0); Hemoglobin 8.6 g/dL (14.0-18.0)
--- NOTE | 2020-11-16 12:48 | PM.IMPN ---
Progress Note: A&P Assessment and Plan (1) Acute respiratory failure with hypoxia: Code(s): J96.01 - Acute respiratory failure with hypoxia Status: Acute Assessment and Plan: Patient presents with worsening shortness of breath and MYRNA leg swelling; O2 sat 77% on room air on arrival. COVID negative 11/15/20; had COVID infection 08/2020. Multiple possible contributing factors: Decompensated CHF, pleural effusions, questionable new PNA vs. residual opacities on imaging from COVID infection in Aug 2020. Tolerating 1L/min supplemental O2; wean as tolerated to keep O2 saturations > 90%. Does not use oxygen at home. Continue treatment with IV diuresis and continue empiric treatment for possible superimposed pneumonia with azithro and rocephin (day 2). Bronchodilator therapy, mucinex, IS. Apnea link ordered. (2) CHF exacerbation: Qualifiers: Heart failure type: systolic Qualified Code(s): I50.23 - Acute on chronic systolic (congestive) heart failure Code(s): I50.9 - Heart failure, unspecified Status: Acute Assessment and Plan: Acute on chronic combined systolic and diastolic CHF. Most recent echo available from January 2020 shows EF 30-35% with wall motion abnormality related to chronic bundle branch block, mild pulm HTN, atrial enlargement. Repeat echo this morning 11/16/20 actually shows some improvement EF 40-45%, no pulm HTN. BNP elevated with increase shortness of breath, swelling. Continue IV Lasix 40mg BID for now; monitor I&Os, daily weights, electrolytes. Continue coreg. Low sodium, fluid restricted diet. With pulmonary vascular congestion, MYRNA pleural effusions, continue diuresis and repeat chest XR in AM. (3) Atrial fibrillation, chronic: Code(s): I48.20 - Chronic atrial fibrillation, unspecified Status: Chronic Assessment and Plan: Rate controlled on home carvedilol. Continue home Eliquis without any evidence of acute bleeding. Monitor H&H. (4) Anemia: Qualifiers: Anemia type: unspecified type Qualified Code(s): D64.9 - Anemia, unspecified Code(s): D64.9 - Anemia, unspecified Status: Chronic Assessment and Plan: Chronic macrocytic anemia is noted. No evidence for acute bleeding. Monitor H&H and consider transfusion if Hgb < 7. (5) Weakness generalized: Code(s): R53.1 - Weakness Status: Acute Assessment and Plan: PT/OT. (6) Pneumonia: Qualifiers: Pneumonia type: due to unspecified organism Laterality: bilateral Lung location: unspecified part of lung Qualified Code(s): J18.9 - Pneumonia, unspecified organism Code(s): J18.9 - Pneumonia, unspecified organism Status: Suspected Assessment and Plan: Continue empiric treatment for possible underlying pneumonia contributing. See above. (7) Hypertension: Qualifiers: Hypertension type: essential hypertension Qualified Code(s): I10 - Essential (primary) hypertension Code(s): I10 - Essential (primary) hypertension Status: Chronic Assessment and Plan: BPs on the lower end. Continue home carvedilol. Home hydralazine held. Monitor BP and adjust treatment as needed. 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 No acute issues, continue home anticoagulation and statin therapy.
[2020-11-16] MEDS: carvediloL 25 MG TABLET PO (17:28)
[2020-11-16] MEDS: ATORVASTATIN 40 MG TABLET PO (21:17)
[2020-11-16] MEDS: DOXAZOSIN MESYLATE 4 MG TABLET 8 MG PO (21:17)
[2020-11-17] VITALS (14 sets, daily range): BP systolic 94–114; BP diastolic 43–58; PULSE 63–87; RESP 18–20; TEMP 36.4–36.6; O2SAT 92–100
[2020-11-17] MEDS: ALBUTEROL SULFATE (*SP) AEROSOL 1 PUFF 2 PUFF INHALATION ×4 (03:10→20:11)
[2020-11-17 06:24] LABS: Anion Gap 3 mmol/L (8-16); Blood Urea Nitrogen 31 mg/dL (9-20); Carbon Dioxide 31 mmol/L (22-30); Chloride 100 mmol/L (98-107); Estimated CRCL calculation 34 ml/min; Estimated Glomerular Filt Rate 48; Glucose 93 mg/dL (75-110); Potassium 3.5 mmol/L (3.4-5.0); Sodium 134 mmol/L (137-145)
[2020-11-17 06:28] LABS: Basophils Percent Auto 0.4 % (0.2-1.2); Eosinophils Absolute Auto 0.6 K/mm3 (0-0.3); Eosinophils Percent Auto 8.1 % (0-4.4); Hematocrit 22.4 % (42.0-52.0); Hemoglobin 7.3 g/dL (14.0-18.0); Immature Granulocyte Absolute 0.03 K/mm3 (0.00-0.031); Immature Granulocyte Percent A 0.4 % (0-0.5); Mean Corpuscular HGB Conc 32.6 g/dl (32-36); Mean Corpuscular Volume 104.2 fl (80-100); Mean Platelet Volume 11.1 fl (7.4-10.4); Monocytes Absolute Auto 0.7 K/mm3 (0.1-0.6); Monocytes Percent Auto 9.6 % (2.6-8.5); Neutrophils Absolute Auto 3.6 K/mm3 (1.3-6.7); Neutrophils Percent Auto 51.5 % (45.5-73.1); Platelet Count Result 175 k/mm3 (150-375); Red Blood Count 2.15 M/mm3 (4.6-6.20); Red Cell Distribution Width 15.7 % (11.5-14.5)
[2020-11-17 06:33] LABS: NT Pro B Type Natriuretic Pept 3220 PG/ML (5-100)
[2020-11-17] MEDS: OMEGA 3 POLYUNSAT FATTY ACIDS 1 GM CAP PO (08:17)
[2020-11-17] MEDS: guaiFENesin 12 HR 600 MG TABCR 1200 MG PO ×2 (08:17→20:12)
[2020-11-17] MEDS: APIXABAN 2.5 MG TABLET PO ×2 (08:18→20:12)
[2020-11-17] MEDS: FUROSEMIDE INJ 40 MG/4 ML VIAL IV PUSH ×2 (08:18→20:12)
--- NOTE | 2020-11-17 13:57 | PM.IMPN ---
Progress Note: A&P Assessment and Plan (1) Acute respiratory failure with hypoxia: Code(s): J96.01 - Acute respiratory failure with hypoxia Status: Acute Assessment and Plan: Patient presents with worsening shortness of breath and MYRNA leg swelling; O2 sat 77% on room air on arrival. -COVID negative 11/15/20; had COVID infection 08/2020 and 1st COVID-19 vaccine. -Multiple possible contributing factors: Decompensated CHF, pleural effusions, and questionable PNA -Tolerating 1L/min supplemental O2; wean as tolerated to keep O2 saturations > 90%. Does not use oxygen at home. -Continue treatment with IV diuresis and continue empiric treatment for possible superimposed pneumonia with azithromycin and rocephin (day 3). -chest x-ray 11/17/20 shows worsening in 1 moaning and improvement in her -consider modified barium swallow/ speech therapy if any signs of aspiration or patient continues to worsen (2) CHF exacerbation: Qualifiers: Heart failure type: systolic Qualified Code(s): I50.23 - Acute on chronic systolic (congestive) heart failure Code(s): I50.9 - Heart failure, unspecified Status: Acute Assessment and Plan: Acute on chronic combined systolic and diastolic CHF. Echo in the past available from January 2020 shows EF 30-35% with wall motion abnormality related to chronic bundle branch block, mild pulm HTN, atrial enlargement. -Repeat echo 11/16/20 actually shows some improvement EF 40-45%, no pulm HTN. -BNP elevated with increase shortness of breath. no reported change in diet -Continue IV Lasix 40mg BID for now; monitor I&Os, daily weights, electrolytes. -Continue coreg. Low sodium, fluid restricted diet. -monitor kidney fx (3) Atrial fibrillation, chronic: Code(s): I48.20 - Chronic atrial fibrillation, unspecified Status: Chronic Assessment and Plan: Rate controlled on home carvedilol -Continue home Eliquis without any evidence of acute bleeding. Monitor H&H. (4) Anemia: Qualifiers: Anemia type: unspecified type Qualified Code(s): D64.9 - Anemia, unspecified Code(s): D64.9 - Anemia, unspecified Status: Chronic Assessment and Plan: Chronic macrocytic anemia is noted. No evidence for acute bleeding. Monitor H&H and consider transfusion if Hgb < 7. -will order anemia labs (5) Weakness generalized: Code(s): R53.1 - Weakness Status: Acute Assessment and Plan: Continue PT and OT (6) Pneumonia: Qualifiers: Pneumonia type: due to unspecified organism Laterality: bilateral Lung location: unspecified part of lung Qualified Code(s): J18.9 - Pneumonia, unspecified organism Code(s): J18.9 - Pneumonia, unspecified organism Status: Suspected Assessment and Plan: As above, Continue empiric treatment for possible underlying pneumonia contributing. (7) Hypertension: Qualifiers: Hypertension type: essential hypertension Qualified Code(s): I10 - Essential (primary) hypertension Code(s): I10 - Essential (primary) hypertension Status: Chronic Assessment and Plan: Last blood pressure 96/48 - Continue home carvedilol. -Home hydralazine held. -will put parameters on Lasix - Monitor BP and adjust treatment as needed. 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 Time Spent With Patient Time with patient: 25 - 35 minutes Subjective Date/time seen: 11/17/20 13:57 Interval history: Pt is a 85-year-old male here for CHF exacerbation and possible pneumonia. Patient was seen today and states he feels about the same as yesterday. He has some mild shortness of breath that has not gotten any better nor has a gotten any worse. He feels this shortness of breath when he walks to the bathroom. He thinks he can lay flat without being short of breath. He denies cough but does have a little congestion. He is eating and drinking oka
[2020-11-17] MEDS: ATORVASTATIN 40 MG TABLET PO (20:12)
[2020-11-17] MEDS: DOXAZOSIN MESYLATE 4 MG TABLET 8 MG PO (20:20)
[2020-11-17 23:01] LABS: Immunochemical Fecal Occult Bl Negative (N)
[2020-11-17 23:02] LABS: IFOB Positive Control Positive
[2020-11-18] VITALS (13 sets, daily range): BP systolic 93–104; BP diastolic 45–61; PULSE 70–84; RESP 16–20; TEMP 36.3–36.9; O2SAT 92–99
[2020-11-18] MEDS: ALBUTEROL SULFATE (*SP) AEROSOL 1 PUFF 2 PUFF INHALATION ×4 (03:18→21:03)
[2020-11-18 06:11] LABS: Hematocrit 22.9 % (42.0-52.0); Hemoglobin 7.4 g/dL (14.0-18.0); Mean Corpuscular HGB Conc 32.3 g/dl (32-36); Mean Corpuscular Hemoglobin 34.1 pg (26-34); Mean Corpuscular Volume 105.5 fl (80-100); Mean Platelet Volume 10.9 fl (7.4-10.4); Platelet Count Result 180 k/mm3 (150-375); Red Blood Count 2.17 M/mm3 (4.6-6.20); Red Cell Distribution Width 15.4 % (11.5-14.5); White Blood Count 6.1 K/mm3 (4.5-10.0)
[2020-11-18 06:23] LABS: Anion Gap 1 mmol/L (8-16); Blood Urea Nitrogen 34 mg/dL (9-20); Calcium 8.3 mg/dL (8.4-10.2); Carbon Dioxide 34 mmol/L (22-30); Chloride 99 mmol/L (98-107); Estimated CRCL calculation 34 ml/min; Estimated Glomerular Filt Rate 48; Glucose 92 mg/dL (75-110); Potassium 3.1 mmol/L (3.4-5.0); Sodium 134 mmol/L (137-145)
[2020-11-18 06:30] LABS: Transferrin 114 mg/dL (206-381)
[2020-11-18 06:32] LABS: NT Pro B Type Natriuretic Pept 2320 PG/ML (5-100)
[2020-11-18 06:39] LABS: Iron 40 ug/dL (49-181)
[2020-11-18 06:49] LABS: Percent Iron Saturation 23 % (20-50)
[2020-11-18 07:29] LABS: Folic Acid 10.8 ng/mL (2.76->20)
[2020-11-18] MEDS: APIXABAN 2.5 MG TABLET PO ×2 (09:54→20:54)
[2020-11-18] MEDS: OMEGA 3 POLYUNSAT FATTY ACIDS 1 GM CAP PO (09:54)
[2020-11-18] MEDS: guaiFENesin 12 HR 600 MG TABCR 1200 MG PO ×2 (09:54→20:53)
[2020-11-18] MEDS: FUROSEMIDE INJ 40 MG/4 ML VIAL IV PUSH ×2 (09:59→21:05)
--- NOTE | 2020-11-18 12:47 | PM.IMPN ---
Progress Note: A&P Assessment and Plan (1) Acute respiratory failure with hypoxia: Code(s): J96.01 - Acute respiratory failure with hypoxia Status: Acute Assessment and Plan: Patient presents with worsening shortness of breath and MYRNA leg swelling; O2 sat 77% on room air on arrival. -COVID negative 11/15/20; had COVID infection 08/2020 and 1st COVID-19 vaccine. -Multiple possible contributing factors: Decompensated CHF, pleural effusions, and questionable PNA -Patient is now off oxygen -Continue treatment with IV diuresis and continue empiric treatment for possible superimposed pneumonia with azithromycin and rocephin (day 4). -chest x-ray 11/17/20 shows worsening in 1 lung and improvement in the other. Will repeat tomorrow -no signs of aspiration on exam or by RN (2) CHF exacerbation: Qualifiers: Heart failure type: systolic Qualified Code(s): I50.23 - Acute on chronic systolic (congestive) heart failure Code(s): I50.9 - Heart failure, unspecified Status: Acute Assessment and Plan: Acute on chronic combined systolic and diastolic CHF. Echo in the past available from January 2020 shows EF 30-35% with wall motion abnormality related to chronic bundle branch block, mild pulm HTN, atrial enlargement. -Repeat echo 11/16/20 actually shows some improvement EF 40-45%, no pulm HTN. -BNP elevated with increase shortness of breath. no reported change in diet -Continue IV Lasix 40mg BID for now; monitor I&Os, daily weights, electrolytes. Will replace potassium today. Depending on chest x-ray tomorrow may transition to oral Lasix soon. -Continue coreg. Low sodium, fluid restricted diet. -monitor kidney fx (3) Atrial fibrillation, chronic: Code(s): I48.20 - Chronic atrial fibrillation, unspecified Status: Chronic Assessment and Plan: Rate controlled on home carvedilol -Continue home Eliquis without any evidence of acute bleeding. Monitor H&H. (4) Anemia: Qualifiers: Anemia type: unspecified type Qualified Code(s): D64.9 - Anemia, unspecified Code(s): D64.9 - Anemia, unspecified Status: Chronic Assessment and Plan: Chronic macrocytic anemia is noted. No evidence for acute bleeding. Monitor H&H and consider transfusion if Hgb < 7. -anemia labs show anemia chronic disease (5) Weakness generalized: Code(s): R53.1 - Weakness Status: Acute Assessment and Plan: Continue PT and OT (6) Pneumonia: Qualifiers: Pneumonia type: due to unspecified organism Laterality: bilateral Lung location: unspecified part of lung Qualified Code(s): J18.9 - Pneumonia, unspecified organism Code(s): J18.9 - Pneumonia, unspecified organism Status: Suspected Assessment and Plan: As above, Continue empiric treatment for possible underlying pneumonia contributing. (7) Hypertension: Qualifiers: Hypertension type: essential hypertension Qualified Code(s): I10 - Essential (primary) hypertension Code(s): I10 - Essential (primary) hypertension Status: Chronic Assessment and Plan: Last blood pressure 104/48 - Continue home carvedilol. -Home hydralazine held. -continue parameters on Lasix - Monitor BP and adjust treatment as needed. 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 Subjective Date/time seen: 11/18/20 12:47 Interval history: Pt is a 85-year-old male here for CHF exacerbation and possible pneumonia. Patient was seen today and was sitting up eating lunch and states he feels better than yesterday. He does not have any shortness of breath at rest which is an improvement. He does have some shortness of breath with activity but he thinks it is getting better. He does not have a cough, fever or chills. He thinks he can lay flat without being short of breath. He is eating and drinking okay and denies diarrhea or constipation. He has not
[2020-11-18] MEDS: POTASSIUM CHLORIDE 20 MEQ TABLET 40 MEQ PO (16:17)
[2020-11-18] MEDS: carvediloL 25 MG TABLET PO (18:12)
[2020-11-18] MEDS: DOXAZOSIN MESYLATE 4 MG TABLET 8 MG PO (20:53)
[2020-11-18] MEDS: ATORVASTATIN 40 MG TABLET PO (21:05)
[2020-11-19] VITALS (10 sets, daily range): BP systolic 100–107; BP diastolic 47–61; PULSE 58–86; RESP 17–20; TEMP 36.3–36.7; O2SAT 92–98
[2020-11-19] MEDS: ALBUTEROL SULFATE (*SP) AEROSOL 1 PUFF 2 PUFF INHALATION ×4 (02:27→20:30)
[2020-11-19 06:31] LABS: Potassium 3.6 mmol/L (3.4-5.0)
[2020-11-19 06:33] LABS: Anion Gap 3 mmol/L (8-16); Blood Urea Nitrogen 30 mg/dL (9-20); Calcium 8.1 mg/dL (8.4-10.2); Carbon Dioxide 34 mmol/L (22-30); Chloride 99 mmol/L (98-107); Estimated CRCL calculation 36 ml/min; Estimated Glomerular Filt Rate 52; Glucose 90 mg/dL (75-110); Magnesium 2.2 mg/dL (1.6-2.3); Sodium 136 mmol/L (137-145)
[2020-11-19 06:36] LABS: Hematocrit 24.2 % (42.0-52.0); Hemoglobin 7.9 g/dL (14.0-18.0)
[2020-11-19] MEDS: FUROSEMIDE INJ 40 MG/4 ML VIAL IV PUSH (08:51)
[2020-11-19] MEDS: OMEGA 3 POLYUNSAT FATTY ACIDS 1 GM CAP PO (08:51)
[2020-11-19] MEDS: APIXABAN 2.5 MG TABLET PO ×2 (08:51→20:29)
[2020-11-19] MEDS: guaiFENesin 12 HR 600 MG TABCR 1200 MG PO ×2 (12:20→20:29)
--- NOTE | 2020-11-19 14:21 | PM.IMPN ---
Progress Note: A&P Assessment and Plan (1) Acute respiratory failure with hypoxia: Code(s): J96.01 - Acute respiratory failure with hypoxia Status: Acute Assessment and Plan: Patient presents with worsening shortness of breath and MYRNA leg swelling; O2 sat 77% on room air on arrival. -COVID negative 11/15/20; had COVID infection 08/2020 and 1st COVID-19 vaccine. -Multiple possible contributing factors: Decompensated CHF, pleural effusions, and questionable PNA -Patient is now off oxygen -Continue treatment with diuresis but change to oral and continue empiric treatment for possible superimposed pneumonia with azithromycin and rocephin (day 4). -chest x-ray 11/19/20 shows slight improvement -no signs of aspiration on exam or by RN (2) CHF exacerbation: Qualifiers: Heart failure type: systolic Qualified Code(s): I50.23 - Acute on chronic systolic (congestive) heart failure Code(s): I50.9 - Heart failure, unspecified Status: Acute Assessment and Plan: Acute on chronic combined systolic and diastolic CHF. Echo in the past available from January 2020 shows EF 30-35% with wall motion abnormality related to chronic bundle branch block, mild pulm HTN, atrial enlargement. -Repeat echo 11/16/20 actually shows some improvement EF 40-45%, no pulm HTN. -BNP elevated with increase shortness of breath. no reported change in diet -Continue lasix 40mg daily for now; monitor I&Os, daily weights, electrolytes. -Continue coreg but decrease dose due to low blood pressure and weakness. Low sodium, fluid restricted diet. -monitor kidney fx (3) Atrial fibrillation, chronic: Code(s): I48.20 - Chronic atrial fibrillation, unspecified Status: Chronic Assessment and Plan: Rate controlled on home carvedilol -Continue home Eliquis without any evidence of acute bleeding. Monitor H&H. (4) Anemia: Qualifiers: Anemia type: unspecified type Qualified Code(s): D64.9 - Anemia, unspecified Code(s): D64.9 - Anemia, unspecified Status: Chronic Assessment and Plan: Chronic macrocytic anemia is noted. No evidence for acute bleeding. Monitor H&H and consider transfusion if Hgb < 7. -anemia labs show anemia chronic disease (5) Weakness generalized: Code(s): R53.1 - Weakness Status: Acute Assessment and Plan: Continue PT and OT (6) Pneumonia: Qualifiers: Pneumonia type: due to unspecified organism Laterality: bilateral Lung location: unspecified part of lung Qualified Code(s): J18.9 - Pneumonia, unspecified organism Code(s): J18.9 - Pneumonia, unspecified organism Status: Suspected Assessment and Plan: As above, Continue empiric treatment for possible underlying pneumonia contributing. (7) Hypertension: Qualifiers: Hypertension type: essential hypertension Qualified Code(s): I10 - Essential (primary) hypertension Code(s): I10 - Essential (primary) hypertension Status: Chronic Assessment and Plan: Last blood pressure 107/61 - Continue carvedilol but at a lower dose due to hypotension and weakness. -Home hydralazine held. -continue lasix - Monitor BP and adjust treatment as needed. 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 Subjective Date/time seen: 11/19/20 14:21 Interval history: Pt is a 85-year-old male here for CHF exacerbation and possible pneumonia. Patient was seen today and states he still had shortness of breath when he walks. He says that this is been going on for a while and much better than when he came in. He says yesterday his legs felt weak and he felt like he could collapse which is how he felt with the came in here. Other than that, he has been feeling okay. He does not have any shortness of breath at rest which is an improvement. He does not have a cough, fever or chills. He thinks he can lay
[2020-11-19] MEDS: carvediloL 12.5 MG TABLET PO (17:56)
[2020-11-19] MEDS: DOXAZOSIN MESYLATE 4 MG TABLET 8 MG PO (20:29)
[2020-11-19] MEDS: ATORVASTATIN 40 MG TABLET PO (20:29)
[2020-11-20 03:31] VITALS: O2SAT 90
[2020-11-20 06:00] VITALS: BP 160/42; PULSE 84; RESP 16; TEMP 36.5; O2SAT 94
[2020-11-20 06:37] LABS: Hematocrit 24.4 % (42.0-52.0); Mean Corpuscular HGB Conc 32.8 g/dl (32-36); Mean Corpuscular Hemoglobin 34.8 pg (26-34); Mean Corpuscular Volume 106.1 fl (80-100); Platelet Count Result 207 k/mm3 (150-375); Red Cell Distribution Width 15.4 % (11.5-14.5); White Blood Count 6.1 K/mm3 (4.5-10.0)
[2020-11-20 06:50] LABS: Anion Gap 3 mmol/L (8-16); Blood Urea Nitrogen 30 mg/dL (9-20); Calcium 8.1 mg/dL (8.4-10.2); Carbon Dioxide 32 mmol/L (22-30); Chloride 99 mmol/L (98-107); Estimated CRCL calculation 42 ml/min; Estimated Glomerular Filt Rate > 60; Glucose 88 mg/dL (75-110); Magnesium 2.3 mg/dL (1.6-2.3); Potassium 3.7 mmol/L (3.4-5.0); Sodium 134 mmol/L (137-145)
[2020-11-20] MEDS: ALBUTEROL SULFATE (*SP) AEROSOL 1 PUFF 2 PUFF INHALATION ×3 (08:54→21:33)
[2020-11-20] MEDS: guaiFENesin 12 HR 600 MG TABCR 1200 MG PO ×2 (08:55→21:33)
[2020-11-20] MEDS: APIXABAN 2.5 MG TABLET PO ×2 (08:55→21:33)
[2020-11-20] MEDS: FUROSEMIDE 40 MG TABLET PO ×2 (08:55→17:47)
[2020-11-20] MEDS: OMEGA 3 POLYUNSAT FATTY ACIDS 1 GM CAP PO (08:55)
--- NOTE | 2020-11-20 11:39 | PM.IMPN ---
Progress Note: A&P Assessment and Plan (1) Acute respiratory failure with hypoxia: Code(s): J96.01 - Acute respiratory failure with hypoxia Status: Acute Assessment and Plan: Patient presents with worsening shortness of breath and MYRNA leg swelling; O2 sat 77% on room air on arrival. -COVID negative 11/15/20; had COVID infection 08/2020 and 1st COVID-19 vaccine. -Multiple possible contributing factors: Decompensated CHF, pleural effusions, and questionable PNA -Patient is now off oxygen but desatted with walking today at 86. He may not be ready for discharge. -Continue treatment with diuresis but change to oral 40mg BID and continue empiric treatment for possible superimposed pneumonia with azithromycin and rocephin (day 5). -chest x-ray 11/19/20 shows slight improvement, will repeat tomorrow -no signs of aspiration on exam or by RN (2) CHF exacerbation: Qualifiers: Heart failure type: systolic Qualified Code(s): I50.23 - Acute on chronic systolic (congestive) heart failure Code(s): I50.9 - Heart failure, unspecified Status: Acute Assessment and Plan: Acute on chronic combined systolic and diastolic CHF. Echo in the past available from January 2020 shows EF 30-35% with wall motion abnormality related to chronic bundle branch block, mild pulm HTN, atrial enlargement. -Repeat echo 11/16/20 actually shows some improvement EF 40-45%, no pulm HTN. -BNP elevated with increase shortness of breath. no reported change in diet -Increase lasix to 40mg BID. monitor I&Os, daily weights, electrolytes. -Continue coreg at decreased dose due to low blood pressure and weakness. Low sodium, fluid restricted diet. -monitor kidney fx (3) Atrial fibrillation, chronic: Code(s): I48.20 - Chronic atrial fibrillation, unspecified Status: Chronic Assessment and Plan: Rate controlled on home carvedilol -Continue home Eliquis without any evidence of acute bleeding. Monitor H&H. (4) Anemia: Qualifiers: Anemia type: unspecified type Qualified Code(s): D64.9 - Anemia, unspecified Code(s): D64.9 - Anemia, unspecified Status: Chronic Assessment and Plan: Chronic macrocytic anemia is noted. No evidence for acute bleeding. Monitor H&H and consider transfusion if Hgb < 7. -anemia labs show anemia chronic disease (5) Weakness generalized: Code(s): R53.1 - Weakness Status: Acute Assessment and Plan: Continue PT and OT (6) Pneumonia: Qualifiers: Pneumonia type: due to unspecified organism Laterality: bilateral Lung location: unspecified part of lung Qualified Code(s): J18.9 - Pneumonia, unspecified organism Code(s): J18.9 - Pneumonia, unspecified organism Status: Suspected Assessment and Plan: As above, Continue empiric treatment for possible underlying pneumonia contributing. (7) Hypertension: Qualifiers: Hypertension type: essential hypertension Qualified Code(s): I10 - Essential (primary) hypertension Code(s): I10 - Essential (primary) hypertension Status: Chronic Assessment and Plan: Last blood pressure 160/42 which is unusual for him - Continue carvedilol and monitor trends -Home hydralazine held. -continue lasix - Monitor BP and adjust treatment as needed. 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 Subjective Date/time seen: 11/20/20 11:39 Interval history: Pt is a 85-year-old male here for CHF exacerbation and possible pneumonia. Patient was seen today and states he did well with therapy but got a little SOB on his walk back to his room. Jeffrey, BELL STAFF, states the pt walked 50 feet and continued to be 91% but the 50 feet back he droped to 86. Pt mention he feels stronger but did feel a bit weak on the way back. He had no lightheadedness, dizziness, or cp with this. This is not his normal. He does not have any
[2020-11-20 14:00] VITALS: BP 150/61; PULSE 80; RESP 16; TEMP 36.7; O2SAT 97
[2020-11-20 17:46] VITALS: PULSE 80
[2020-11-20] MEDS: carvediloL 12.5 MG TABLET PO (17:46)
[2020-11-20] MEDS: ATORVASTATIN 40 MG TABLET PO (21:33)
[2020-11-20] MEDS: DOXAZOSIN MESYLATE 4 MG TABLET 8 MG PO (21:33)
[2020-11-20 21:39] VITALS: BP 97/50; PULSE 73; RESP 20; TEMP 36.8; O2SAT 90
[2020-11-21] MEDS: ALBUTEROL SULFATE (*SP) AEROSOL 1 PUFF 2 PUFF INHALATION ×4 (01:50→20:35)
[2020-11-21 05:43] VITALS: BP 97/54; PULSE 71; RESP 20; TEMP 36.6; O2SAT 91
[2020-11-21 06:45] LABS: Anion Gap 3 mmol/L (8-16); Blood Urea Nitrogen 25 mg/dL (9-20); Calcium 8.4 mg/dL (8.4-10.2); Carbon Dioxide 33 mmol/L (22-30); Chloride 100 mmol/L (98-107); Estimated CRCL calculation 36 ml/min; Estimated Glomerular Filt Rate 52; Glucose 91 mg/dL (75-110); Potassium 3.6 mmol/L (3.4-5.0); Sodium 136 mmol/L (137-145)
[2020-11-21] MEDS: OMEGA 3 POLYUNSAT FATTY ACIDS 1 GM CAP PO (08:46)
[2020-11-21] MEDS: APIXABAN 2.5 MG TABLET PO ×2 (08:46→20:34)
[2020-11-21] MEDS: FUROSEMIDE 40 MG TABLET PO (08:47)
[2020-11-21] MEDS: guaiFENesin 12 HR 600 MG TABCR 1200 MG PO ×2 (08:47→20:34)
--- NOTE | 2020-11-21 11:37 | PCNFU ---
Nutrition Follow-Up Complete: Unintended weight loss related to poor appetite as evidenced by patient reported weight loss of 2-13 pounds upon admission and 12 pound weight loss since 11/25/2019. Goal: Patient to consume 75% or more of meals on current diet order. goal has been met. No new goal. Pt current nutrition is 2 gm Na,1700 ml Fluid Restriction. Last recorded weight is 68.9 kg, down from 73.1 kg on admit. Bowel Motility:No BM reported. Labs Reviewed: BUN 25, Na 136,GFR 52 Meds Noted: Lipitor,Lasix,Mucinex,Coreg,Albuterol, Eliquis,Cardura,Lovaza. Additional Notes: Patient seen today for nutrition follow up. Patient states to no diet questions or concerns. Oral Intake has been 75-100% of meals. Patient is also receiving Ensure Enlive BID TID providing an additional 350 kcals and 20 gms protein. Monitor patients labs, medications, weight, and oral intake every 7 days.
--- NOTE | 2020-11-21 11:42 | PM.IMPN ---
Progress Note: A&P Assessment and Plan (1) Acute respiratory failure with hypoxia: Code(s): J96.01 - Acute respiratory failure with hypoxia Status: Acute Assessment and Plan: -improving, although still on 1 L of oxygen now at rest. -chest x-ray 11/21 shows improvement -he may need oxygen at baseline and I will do a home oxygen evaluation tomorrow -hopefully home with oral antibiotics tomorrow -COVID negative 11/15/20; had COVID infection 08/2020 and 1st COVID-19 vaccine. -Multiple possible contributing factors: Decompensated CHF, pleural effusions, and questionable PNA -Patient is now off oxygen but desatted with walking earlier in the stay at 86. (2) CHF exacerbation: Qualifiers: Heart failure type: systolic Qualified Code(s): I50.23 - Acute on chronic systolic (congestive) heart failure Code(s): I50.9 - Heart failure, unspecified Status: Acute Assessment and Plan: Acute on chronic combined systolic and diastolic CHF. Echo in the past available from January 2020 shows EF 30-35% with wall motion abnormality related to chronic bundle branch block, mild pulm HTN, atrial enlargement. -Repeat echo 11/16/20 actually shows some improvement EF 40-45%, no pulm HTN. -BNP elevated with increase shortness of breath. no reported change in diet -decreased lasix to 40mg daily3 monitor I&Os, daily weights, electrolytes. -Continue coreg at decreased dose due to low blood pressure and weakness. Low sodium, fluid restricted diet. -monitor kidney fx (3) Atrial fibrillation, chronic: Code(s): I48.20 - Chronic atrial fibrillation, unspecified Status: Chronic Assessment and Plan: Rate controlled on home carvedilol -Continue home Eliquis without any evidence of acute bleeding. (4) Anemia: Qualifiers: Anemia type: unspecified type Qualified Code(s): D64.9 - Anemia, unspecified Code(s): D64.9 - Anemia, unspecified Status: Chronic Assessment and Plan: Chronic macrocytic anemia is noted. No evidence for acute bleeding. Monitor H&H and consider transfusion if Hgb < 7. -anemia labs show anemia chronic disease (5) Weakness generalized: Code(s): R53.1 - Weakness Status: Acute Assessment and Plan: Continue PT and OT (6) Pneumonia: Qualifiers: Pneumonia type: due to unspecified organism Laterality: bilateral Lung location: unspecified part of lung Qualified Code(s): J18.9 - Pneumonia, unspecified organism Code(s): J18.9 - Pneumonia, unspecified organism Status: Suspected Assessment and Plan: As above, Continue empiric treatment for possible underlying pneumonia contributing. (7) Hypertension: Qualifiers: Hypertension type: essential hypertension Qualified Code(s): I10 - Essential (primary) hypertension Code(s): I10 - Essential (primary) hypertension Status: Chronic Assessment and Plan: Last blood pressure 97/54 - Continue carvedilol and monitor trends -Home hydralazine held and will be discontinued at discharge -continue lasix - Monitor BP and adjust treatment as needed. 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 Subjective Date/time seen: 11/21/20 11:42 Interval history: Pt is a 85-year-old male here for CHF exacerbation and possible pneumonia. Patient was seen today and states he feels wore out after physical therapy and getting his chest x-ray today. The nurse states that he was feeling short of breath after all this activity and was down to 88 which prompted oxygen. He should be able to get this weaned off today. Jeffrey, GROUP PROGRAM MANAGER, states that he has been walking okay and does not anticipate any therapy needs. The patient himself says he feels short of breath when he walks but doing okay at rest. He really wants to go home but understands that he is not requiring oxygen today at rest which is new. He has
[2020-11-21 14:00] VITALS: BP 107/61; PULSE 73; RESP 18; TEMP 36.7; O2SAT 93
[2020-11-21] MEDS: carvediloL 12.5 MG TABLET PO (17:35)
[2020-11-21] MEDS: DOXAZOSIN MESYLATE 4 MG TABLET 8 MG PO (20:34)
[2020-11-21] MEDS: ATORVASTATIN 40 MG TABLET PO (20:35)
[2020-11-21 22:00] VITALS: BP 93/52; PULSE 66; RESP 18; TEMP 36.6; O2SAT 100
[2020-11-22] VITALS (8 sets, daily range): BP systolic 105; BP diastolic 52; PULSE 71; RESP 18; TEMP 36.6; O2SAT 86–96
[2020-11-22] MEDS: ALBUTEROL SULFATE (*SP) AEROSOL 1 PUFF 2 PUFF INHALATION ×2 (03:01→08:25)
[2020-11-22 06:25] LABS: Anion Gap 2 mmol/L (8-16); Blood Urea Nitrogen 26 mg/dL (9-20); Carbon Dioxide 31 mmol/L (22-30); Chloride 101 mmol/L (98-107); Estimated CRCL calculation 42 ml/min; Estimated Glomerular Filt Rate > 60; Glucose 88 mg/dL (75-110); Potassium 3.8 mmol/L (3.4-5.0); Sodium 134 mmol/L (137-145)
[2020-11-22] MEDS: guaiFENesin 12 HR 600 MG TABCR 1200 MG PO (08:24)
[2020-11-22] MEDS: APIXABAN 2.5 MG TABLET PO (08:24)
[2020-11-22] MEDS: OMEGA 3 POLYUNSAT FATTY ACIDS 1 GM CAP PO (08:24)
[2020-11-22] MEDS: FUROSEMIDE 40 MG TABLET PO (08:24)
--- NOTE | 2020-11-22 12:43 | PM.DS ---
DS: Admitting Diagnosis Admitting Diagnosis Admitting Diagnosis: chf vs pna DS: Discharge Diagnosis Discharge Diagnosis (1) Acute respiratory failure with hypoxia: Code(s): J96.01 - Acute respiratory failure with hypoxia Status: Acute Assessment and Plan: -improved from admission but he requires 2L with activity likely d/t CHF -chest x-ray 11/21 shows improvement and pt feeling back to baseline -COVID negative 11/15/20; had COVID infection 08/2020 and 1st COVID-19 vaccine completed. -Multiple possible contributing factors: Decompensated CHF, pleural effusions, and PNA (2) CHF exacerbation: Qualifiers: Heart failure type: systolic Qualified Code(s): I50.23 - Acute on chronic systolic (congestive) heart failure Code(s): I50.9 - Heart failure, unspecified Status: Acute Assessment and Plan: Acute on chronic combined systolic and diastolic CHF. Echo in the past available from January 2020 shows EF 30-35% with wall motion abnormality related to chronic bundle branch block, mild pulm HTN, atrial enlargement. -Repeat echo 11/16/20 actually shows some improvement EF 40-45%, no pulm HTN. -BNP elevated with increase shortness of breath. no reported change in diet -Received lasix IV throughout his stay and placed back on his oral lasix. I spoke with pt and recommended he f/u with his fitting room operator sometime this week or next to ensure he does not worsen on this as he may need a permenant adjustment. Pt understood and agreed. -Continue coreg at decreased dose due to low blood pressure and weakness (3) Atrial fibrillation, chronic: Code(s): I48.20 - Chronic atrial fibrillation, unspecified Status: Chronic Assessment and Plan: Rate controlled on home carvedilol -Continue home Eliquis without any evidence of acute bleeding. (4) Anemia: Qualifiers: Anemia type: unspecified type Qualified Code(s): D64.9 - Anemia, unspecified Code(s): D64.9 - Anemia, unspecified Status: Chronic Assessment and Plan: Chronic macrocytic anemia is noted. No evidence for acute bleeding. (5) Weakness generalized: Code(s): R53.1 - Weakness Status: Acute Assessment and Plan: spoke with therapy and pt did well with PT and does not require PT or home health (6) Pneumonia: Qualifiers: Pneumonia type: due to unspecified organism Laterality: bilateral Lung location: unspecified part of lung Qualified Code(s): J18.9 - Pneumonia, unspecified organism Code(s): J18.9 - Pneumonia, unspecified organism Status: Suspected Assessment and Plan: Pt received 5 days of azithromycin and 7 of ceftriaxone for possible PNA (7) Hypertension: Qualifiers: Hypertension type: essential hypertension Qualified Code(s): I10 - Essential (primary) hypertension Code(s): I10 - Essential (primary) hypertension Status: Chronic Assessment and Plan: Last blood pressure 105/52 -pt continued to be hypotensive which could be contributing to his weakness -hydralazine discontinued, coreg dosage lowered and lasix continued -follow up with pcp DS: Summary Hospital Course Hospital Course: Pt is a 85 y/o male who presented emergency room on November 15, 2020 for shortness of breath and desaturation at 77%. White blood cell count in the ER was 6.3, hemoglobin 8.8, hematocrit 27.9, platelets 184. BMP showed chronic kidney disease with a creatinine 1.4 and a BUN of 24. Chest CTA showed limited segmental evaluation but no PE, diffuse airspace disease likely acute infection or edema. Also showed mediastinal lymphadenopathy which was likely reactive and moderate right and small left pleural effusions. Venous Doppler showed no DVT. Patient was admitted to the hospitalist service and started on IV Lasix as well as azithromycin and ceftriaxone for CHF versus pneumonia. Patient continued to improve wit
--- NOTE | 2020-11-22 13:06 | HOMEO2EVAL ---
Home Oxygen Evaluation RC: Home Oxygen (O2) Evaluation Start: 11/22/20 07:00 Freq: ONCE Status: Active Protocol: RPE Activity Type Activity Date Activity User E-Sign Co-Sign Detail Recorded Client Recorded Date Recorded By Document 11/22/20 11:10 BROOKS [email or web address] 11/22/20 12:02 BROOKS Document 11/22/20 11:15 BROOKS [email or web address] 11/22/20 12:02 BROOKS Document 11/22/20 11:16 BROOKS [email or web address] 11/22/20 12:02 BROOKS Document 11/22/20 11:17 BROOKS [email or web address] 11/22/20 12:02 BROOKS Document 11/22/20 11:20 BROOKS [email or web address] 11/22/20 12:02 BROOKS 11/22/20 11/22/20 11/22/20 11:10 11:15 11:16 Home O2 Evaluation Test Phase Resting Exercise Exercise Oxygen Delivery Room Air Room Air Nasal Cannula Oxygen Flow Rate (L/min) 1 Pulse Oximetry (90-100 %) 93 86 L 87 L Home Oxygen Evaluation Comments Treatment Charges O2 Evaluation - Inpatient 11/22/20 11/22/20 11:17 11:20 Home O2 Evaluation Test Phase Exercise Resting Oxygen Delivery Nasal Cannula Room Air Oxygen Flow Rate (L/min) 2 Pulse Oximetry (90-100 %) 90 93 Home Oxygen Evaluation Comments PT REQUIRES 2 L WITH EXERTION Treatment Charges
--- NOTE | 2020-11-22 13:08 | PCRCNOTE ---
HOME O2 EVAL COMPLETED WITH PT. PT REQUIRES 2 L WITH EXERTION. WILL ARRANGE WITH [facility] AND THEY WILL BRING UP TANK TO HOSPITAL PRIOR TO D/C
[2020-11-22] MEDS: cefTRIAXone 1 GM VIAL IM (13:47)
--- NOTE | 2020-11-22 14:45 | PC.NURSE ---
Pt has been discharged. Pt's IV was removed, and discharge paperwork was reviewed with both the pt and his . Opportunities for questions was provided and all questions answered to the best of my abilities. Pt assisted by staff to his 's car, in a wheelchair.
== END 2020-11-22 14:30 | disposition home or self-care (01) | DRG 291 ==
LOC: ANHED 09:14 → ANH3MEDSUR 12:47
PROVIDERS: Nurse Practitioner; Physician Assistant; Admitting Provider Family Medicine; Emergency Provider General Practice; PCP Internal Medicine; Visit Provider Physician Assistant
DX: I13.0 Hypertensive heart and chronic kidney disease with heart failure and stage 1 through stage 4 chronic kidney disease, or unspecified chronic kidney disease (principal); I50.43 Acute on chronic combined systolic (congestive) and diastolic (congestive) heart failure; J18.9 Pneumonia, unspecified organism; J96.01 Acute respiratory failure with hypoxia; I48.19 Other persistent atrial fibrillation; N18.30 Chronic kidney disease, stage 3 unspecified; Z20.822 Contact with and (suspected) exposure to COVID-19; G47.33 Obstructive sleep apnea (adult) (pediatric); D50.9 Iron deficiency anemia, unspecified; I44.7 Left bundle-branch block, unspecified; E78.2 Mixed hyperlipidemia; L40.9 Psoriasis, unspecified; E53.8 Deficiency of other specified B group vitamins; J45.909 Unspecified asthma, uncomplicated; I25.10 Atherosclerotic heart disease of native coronary artery without angina pectoris; N40.0 Benign prostatic hyperplasia without lower urinary tract symptoms; I25.2 Old myocardial infarction; Z86.73 Personal history of transient ischemic attack (TIA), and cerebral infarction without residual deficits; Z79.01 Long term (current) use of anticoagulants; Z95.5 Presence of coronary angioplasty implant and graft; Z95.1 Presence of aortocoronary bypass graft; Z86.16 Personal history of COVID-19
CPT/HCPCS: 36415; 36600; 71045; 71046; 71275; 80048; 80053; 82274; 82375; 82607; 82728; 82746; 82805; 83050; 83540; 83550; 83735; 83880; 84466; 84484; 85014; 85018; 85025; 85027; 85380; 85610; 85730; 87015; 87040; 87045; 87046; 87177; 87209; 87269; 87272; 87427; 89055; 93005; 93306; 93970; 94618; 94640; 94762; 96365; 96366; 96367; 96375; 96376; 97110; 97116; 97161; 97165; 97530; 97535; 99285; A9270; C9803; G0378; J0456; J0696; J1940; Q9967; U0003; U0005

== ENCOUNTER 2021-01-31 13:55 | Outpatient (CLI) | payer MEDICARE, SELFPAY ==
--- NOTE | ~2021-01-31 | XR_ITS ---
XR chest 2V DATE: 01/31/2021 14:13 INDICATION: Chest pain, right-sided, mostly when sitting TECHNIQUE: PA and lateral views COMPARISON: 11/21/2020 2 view chest 11/26/2019, 09/16/2021 view chest FINDINGS: Status post sternotomy. There is prominent diffuse osteopenia. There is cardiomegaly. Is aortic calcification and unfolding. There are likely chronic interstitial changes involving particularly the mid and lower lung zones. Ch ronic pleural thickening in the lower left lateral chest. IMPRESSION: Probable chronic interstitial lung changes Status post sternotomy; cardiomegaly Aortic atherosclerosis Reviewed, dictated and finalized at location A.
== END 2021-01-31 13:56 | disposition home or self-care (01) ==
PROVIDERS: PCP Internal Medicine; Visit Provider Internal Medicine
DX: R07.9 Chest pain, unspecified (principal); Z98.890 Other specified postprocedural states; I51.7 Cardiomegaly; I70.0 Atherosclerosis of aorta
CPT/HCPCS: 71046

== ENCOUNTER 2021-03-29 14:30 | Outpatient (RCR) | payer MEDICARE, SELFPAY ==
--- NOTE | 2021-02-23 14:36 | OTOPEVAL ---
OCCUPATIONAL THERAPY INITIAL EVALUATION 02/23/21 Thank you for referring Armen Felipe to [facility].? The patient is scheduled to be seen for therapy? 2x/week for 4 weeks. Please review, sign, date and return this plan of care JENNA. I agree with and certify that the following plan of care is medically necessary. Referring Physician Date Referring Provider: Robert Butler DO *OT Outpatient Evaluation Start: 02/23/21 13:36 Therapy Assessment Status Assessment Status Assessment Status Evaluation Outpatient Past Medical History Neurological History Hx Cerebrovascular Accident (CVA) Yes: May 20, 2019 Cardiovascular History Hx Atrial Fibrillation Yes Hx Cardiac Catheterization Yes Hx Cardiac Surgery Yes Hx Chest Pain Yes Hx Congestive Heart Failure Yes Hx Coronary Artery Bypass Graft Yes: 1992 Hx Coronary Artery Disease Yes Hx Hypercholesterolemia Yes Hx Hypertension Yes Respiratory History Hx Sleep Apnea Yes Hx Other Respiratory Disorders Yes: COVID + 08/2020 Gastrointestinal History Hx Gastrointestinal Disorders No Significant History Genitourinary History Hx Renal Disease Yes Musculoskeletal History Hx Arthritis Yes Hx Fractures Yes: ribs, nose Hematological History Hx Anemia Yes Endocrine History Hx Endocrine Disorders No Significant History HEENT History Hx Cataracts Yes: bilateral cataract extractions Hx Dental Problems Yes: upper dentures Hx Ear Surgery Yes: bilateral cataract extractions Integumentary History Hx Excision Skin Lesion Yes: skin cancers on forehead Hx Psoriasis Yes Reproductive History Hx Reproductive Disorders No Significant History Psychosocial History Hx Psychiatric Disorders No Significant History Pain History History of Any Previous or Ongoing No Significant History Instance of Pain Anesthesia History Hx Anesthesia Reactions No Significant History Other History Hx Cancer Yes: skin cancer removed from forehead Evaluation Information Problem Diagnosis Right hand weakness Subjective Information Patient is s/p CVA May 2019. Query Text:As Reported By Patient/ In Aug 2020 he has COVID-19 Family and progressively became weaker. He went to [place] [facility] for 3-4 visits and states that he felt worse after leaving there. He stopped going about 1.[address]
--- NOTE | 2021-02-23 15:33 | PTOPEVAL ---
PHYSICAL THERAPY EVALUATION AND PLAN OF CARE Thank you for referring Armen Felipe to [facility].? The patient is scheduled to be seen for therapy?2x/week for 4 weeks. Please review, sign, date and return this plan of care JENNA. I agree with and certify that the following plan of care is medically necessary. Referring Physician Date Attending Provider: Robert Butler DO Evaluation Outpatient Past Medical History Neurological History Hx Cerebrovascular Accident (CVA) Yes: May 20, 2019 Cardiovascular History Hx Atrial Fibrillation Yes Hx Cardiac Catheterization Yes Hx Cardiac Surgery Yes Hx Chest Pain Yes Hx Congestive Heart Failure Yes Hx Coronary Artery Bypass Graft Yes: 1992 Hx Coronary Artery Disease Yes Hx Hypercholesterolemia Yes Hx Hypertension Yes Respiratory History Hx Sleep Apnea Yes Hx Other Respiratory Disorders Yes: COVID + 08/2020 Gastrointestinal History Hx Gastrointestinal Disorders No Significant History Genitourinary History Hx Renal Disease Yes Musculoskeletal History Hx Arthritis Yes Hx Fractures Yes: ribs, nose Hematological History Hx Anemia Yes Endocrine History Hx Endocrine Disorders No Significant History HEENT History Hx Cataracts Yes: bilateral cataract extractions Hx Dental Problems Yes: upper dentures Hx Ear Surgery Yes: bilateral cataract extractions Integumentary History Hx Excision Skin Lesion Yes: skin cancers on forehead Hx Psoriasis Yes Reproductive History Hx Reproductive Disorders No Significant History Psychosocial History Hx Psychiatric Disorders No Significant History Pain History History of Any Previous or Ongoing No Significant History Instance of Pain Anesthesia History Hx Anesthesia Reactions No Significant History Other History Hx Cancer Yes: skin cancer removed from forehead Diagnosis weakness Onset 09/2020 Cause COVID -19 Subjective Information Armen is here with c/o Query Text:As Reported By Patient/ feeling weaker with decreased Family energy and decreased mobility. He states that walking is harder. States that if he stops walking he gets more tired. States that he cannot walk around the block which was something he used to be to do. Also reports that he ge
--- NOTE | 2021-03-01 15:53 | PCPTNOTE ---
Patient did not show to appointment this date. Patient was called and states he did not have an appointment on his schedule for today. Reviewed and confirmed his appointment on 03/03 at 2:30 with OT and 3:00 with PT.
--- NOTE | 2021-03-03 15:01 | PCOTNOTE ---
Patient did not show up for scheduled appointment this date. Called patient and he stated was confused about his schedule this week. Reminded him of his PT session on the and OT session on the . Confirmed that he did have a printed schedule at home to refer to.
--- NOTE | 2021-03-08 16:38 | PCPTNOTE ---
Patient did not show to appointment this date. Patient was called and states he meant to call to cancel patient. Confirmed upcoming appointment.
--- NOTE | 2021-03-15 14:52 | PCOTNOTE ---
Patient showed up 30 min late for 45 min treatment with PT scheduled right after. Did not see patient for OT session. Patient states he got the time wrong.
--- NOTE | 2021-03-23 13:41 | PCOTNOTE ---
Occupational Therapy appointment canceled today due to Patient being at [facility] for physical therapy appointment and left before Occupational therapy due to forgetting about Occupational therapy appointment.
--- NOTE | 2021-03-29 15:27 | OTOPEVAL ---
OCCUPATIONAL THERAPY RE-EVALUATION/DISCHARGE SUMMARY: 03/29/2021 Thank you for referring Armen Felipe to [facility].? As noted below, no skilled OT is indicated at this time. Plan to discharge today with patient independent in HEP. Please review, sign, date and return this plan of care JENNA. I agree with and certify that the following plan of care is medically necessary. Referring Physician Date Attending Provider: DO Ravin LaOT Outpatient Re-Evaluation/Discharge Summary Start: 02/23/21 13:36 Freq: Status: Active Protocol: Document 03/29/21 14:36 KJL (Rec: 03/29/21 15:27 KJL [id number]) Therapy Assessment Status Assessment Status Assessment Status Re-evaluation/Discharge Summary Evaluation Information Problem Diagnosis weakness Onset 09/2020 Cause COVID -19 Additional Evaluation Detail Patient has been attending outpatient OT since 02/23/2021 and has attended 3 treatment sessions. Patient has demonstrated independence with HEP materials throughout treatment sessions and reports compliance with completing HEP material at home. Subjective Information Patient reports has been Query Text:As Reported By Patient/ feeling good since attending Family Outpatient OT has been utilizing R UE more with daily tasks. Patient reports R UE has become stronger and easier to use throughout daily activities. Patient reports completing HEP materials has progressively become easier and has increased endurance. Pain Assessment Timing of Pain Assessment Timing of Pain Assessment Assessment Self Report Self Report Pain Level 0 Pain Score Pain Score 0: Self Report Upper Extremity Range of Motion Scapular/ Shoulder Range of Motion Right Shoulder Flexion - Active 105 Shoulder Abduction - Active 95 Upper Extremity Muscle Strength Testing Scapular/Shoulder Left Shoulder Flexion Strength 5 Normal Shoulder Extension Strength 5 Normal Shoulder Abduction Strength 5 Normal Shoulder Adduction Strength 5 Normal Shoulder Horizontal Abduction Strength 5 Normal Shoulder Horizontal Adduction Strength 5 Normal Right Shoulder Flexion Strength 4 Good Shoulder Extension Strength 4 Good Shoulder Abduction Strength 4 Good Shoulder Adduction Strength 4 Good
--- NOTE | 2021-03-29 16:58 | PCPTNOTE ---
Patient did not remember that he had a physical therapy appointment today and left. I called him later and we discussed his care. We will plan to discharge from PT at this time. He feels he is improved from when we started physical therapy.
--- NOTE | 2021-03-29 16:58 | PCPTNOTE ---
PHYSICAL THERAPY DISCHARGE NOTE Attending Provider: Robert Butler DO Patient:Armen Felipe Date of :1935 Armen has participated in 1 month of physical therapy (5 visits) to address strengthening, endurance, and balance. He was not seen for his last appointment as he forgot he had an appointment; however, I spoke with Armen and we will plan to discharge from PT. Based on his last treatment session, he is demonstrating improved tolerance to activity and balance challenges. Armen will continue his home exercise program to continue improving strength and balance. Thank you for referring this patient to [facility]. Please review, sign, date and return this discharge summary JENNA. I have been updated about the patient's current status and I agree with discharge from the above service at this time. Referring Physician Date
== END 2021-05-10 11:55 | disposition home or self-care (01) ==
LOC: ANHOT 14:30
PROVIDERS: PCP Internal Medicine; Visit Provider Internal Medicine
DX: I63.9 Cerebral infarction, unspecified (principal); R26.9 Unspecified abnormalities of gait and mobility; R53.1 Weakness
CPT/HCPCS: 97110; 97161; 97165; 97168

== ENCOUNTER → 2021-10-11 08:45 | Outpatient (REF) | payer MEDICARE, SELFPAY | LOC: ANHLAB 08:45 | PROVIDERS: PCP Internal Medicine; Visit Provider Nurse Practitioner | DX: C44.319 Basal cell carcinoma of skin of other parts of face (principal) | CPT/HCPCS: 88305; 88331 ==

== ENCOUNTER → 2021-10-24 11:48 | Outpatient (REF) | payer MEDICARE, SELFPAY | LOC: ANHLAB 11:48 | PROVIDERS: PCP Internal Medicine; Visit Provider Nurse Practitioner | DX: L90.5 Scar conditions and fibrosis of skin (principal) | CPT/HCPCS: 88305 ==

== ENCOUNTER → 2021-12-14 11:10 | Outpatient (REF) | payer MEDICARE, SELFPAY | LOC: ANHLAB 11:10 | PROVIDERS: PCP Internal Medicine; Visit Provider Nurse Practitioner | DX: L57.0 Actinic keratosis (principal); L57.8 Other skin changes due to chronic exposure to nonionizing radiation | CPT/HCPCS: 88305 ==

== ENCOUNTER 2022-05-14 13:30 | Outpatient (RCR) | payer MEDICARE, SELFPAY ==
[2022-04-18 13:26] VITALS: BP_SYST 90
--- NOTE | 2022-04-18 14:25 | PTOPEVAL ---
PHYSICAL THERAPY EVALUATION AND PLAN OF CARE Thank you for referring Armen Felipe to [facility].? The patient is scheduled to be seen for therapy? 2x/week for 4 weeks. Please review, sign, date and return this plan of care JENNA. I agree with and certify that the following plan of care is medically necessary. Referring Physician Date Attending Provider: Robert Butler, DO Onset chronic Subjective Information reports that he has weakness Query Text:As Reported By Patient/ in his legs and has stiffness Family and pain in the right arm. Had a stroke in May of 2019 . Following the stroke he did participate in physical and occupational therapy to address balance and strength deficits and functional deficits to right UE. When asked about HEP from previous therapies he shows me elbow flexion, shoulder extension, and shoulder elevation. States that he tries to do a lot of walking. reports near falls but no falls to the ground. States that he can walk but standing in one spot is very difficult and states that he needs to sit down. Reports less than a minute. Prior Level of Function Home Setting Home Type House Environmental Barriers Railing, None,Stairs, 2-4 Living Situation With Spouse Self Report Pain Assessment Right Arm(s) Reported Pain Level 3 Pain Description Aching,Tightness Pain Frequency Chronic,Continuous Pain Aggravating Factors None Upper Extremity Range of Motion Scapular/ Shoulder Range of Motion Right Shoulder Flexion - Active 80 Shoulder Flexion - Passive 115 Shoulder Abduction - Active 62 Shoulder Abduction - Passive 90 Upper Extremity Muscle Strength Testing Scapular/Shoulder Right Shoulder Flexion Strength 3 Fair Shoulder Adduction Strength 3 Fair Balance Assessment Boone Balance Assessment 36/56 points Comments discussed score with patient and further discussed that maintaining balance is as important as catching his balance if he does lose his balance. Time Up Go (TUG) Timed Up and Go Test (TUG) (Seconds) 24 Assistive Devices
--- NOTE | 2022-04-26 09:10 | PCPTNOTE ---
Patient called & cancelled scheduled appointment this date due to having an appointment with his communication instructor this date.
--- NOTE | 2022-05-02 13:51 | PCPTNOTE ---
Patient cancelled appointment on 05/02 and rescheduled to 05/03 at 12:30.
--- NOTE | 2022-05-03 13:19 | PCPTNOTE ---
Patient did not show up for scheduled appointment this date. Called patient and spoke to him and he stated he thought his appointment time was for 1:30 not 12:30. Reminded patient of his next appointment on 05/08 at 1:30.
--- NOTE | 2022-05-14 14:58 | PTOPDC ---
Evaluation Information Assessment Status Discharge Subjective Information Armen reports: doing a little better with walking and his arm--moving arm little more at shoulder; with walking am doing OK, but when traffic administrator one place, get weak- like legs going to give away; varies, can stand about 1 min and sometimes do OK- have to watch it; has not had any falls; feels like he is ready to be finished with PT and do the exercises at home; Reported Pain Level Pain Score 0: Self Report Additional Pain Score Comments with shoulder motions, had increased pain but eased when stopped the motions Assessment PT Clinical Summary Armen has received a total of 7 PT sessions for R shoulder pain and gait imbalance. He called/ canceled 2 and did not show for 1 appointment. Compared to the initial evaluation: R shoulder active and passive flexion increased to 95' and 130' and abduction is about the same; 2 minute walking distance increased by 54' to 270' with 2.25 ft/sec; 5 reps sit/stand and TUG are about the same and Boone balance score increased by 7 points to 43/56. He is independent with his home exercise program and wants to stop therapy at this time. The goals were partially achieved. Discharge PT services. Plan of Care PT Services Indicated No
== END 2022-05-15 08:51 | disposition home or self-care (01) ==
LOC: ANHPT 13:30
PROVIDERS: PCP Internal Medicine; Referring Provider Internal Medicine; Visit Provider Internal Medicine
DX: M79.601 Pain in right arm (principal); R29.898 Other symptoms and signs involving the musculoskeletal system
CPT/HCPCS: 97110; 97162; 99199

== ENCOUNTER 2022-10-15 13:51 | Outpatient (NON) | payer MEDICARE, SELFPAY | END 2022-10-15 13:52 | disposition home or self-care (01) | LOC: ANHLAB 13:51 | PROVIDERS: PCP Internal Medicine; Visit Provider Nurse Practitioner | DX: C44.319 Basal cell carcinoma of skin of other parts of face (principal) | CPT/HCPCS: 88305; 88331 ==

== ENCOUNTER 2022-11-01 15:03 | Inpatient (IN) | payer MEDICARE, SELFPAY ==
--- NOTE | ~2022-11-01 | XR_ITS ---
EXAMINATION: XR chest 2V DATE: 11/01/2022 15:54 INDICATION: Shortness of breath. TECHNIQUE: Frontal and lateral views of the chest were obtained. COMPARISON: Chest 2 views 01/31/2021, chest CT 11/15/2020 FINDINGS: There is a diffuse reticulonodular pattern in the lungs. There are changes pleural effusion s. No pneumothorax. Cardiomegaly is noted. There is a right chest pacer with lead in right ventricle. IMPRESSION: 1. Diffuse lung disease, likely pulmonary edema without or with superimposed pneumonia. 2. Cardiomegaly. Reviewed, dictated and finalized at location A. SHAPER SETUP OPERATOR IMPRESSION: 1. Diffuse lung disease, likely pulmonary edema without or with superimposed pn eumonia. 2. Cardiomegaly.
--- NOTE | ~2022-11-01 | CT_ITS ---
EXAMINATION: CTA chest PE protocol DATE: 11/01/2022 20:03 INDICATION: Shortness of breath TECHNIQUE: Computed tomography angiography (CTA) of the chest was performed with 100 mL Omnipaque-350 intravenous contrast timed to evaluate the pulmonary arteries. Coronal maximum intensity projection 3D-reconstructions were created by the technologist. The dose-length product (DLP) was 258.99 mGy-cm. Automated exposure control and iterative reconstruction technique were employed. COMPARISON: 11/15/2020 FINDINGS: The pulmonary arteries are well-opacified. No pulmonary embolism is identified. There are d iffuse groundglass airspace opacities throughout all lung zones. There is interlobular septal thicken ing in the mid and lower lung zones. Cardiomegaly is noted. There are small pleural effusions. No pne umothorax is identified. There is mediastinal and bilateral hilar lymphadenopathy. There are changes of prior cardiac surgery. Mild thoracic spondylosis is noted. IMPRESSION: 1. No pulmonary embolus identified. 2. Diffuse lung disease, consistent with pneumonia and/or pulmonary edema. Reviewed, dictated and finalized at location F. IST BIOLOGICAL
--- NOTE | ~2022-11-01 | XR_ITS ---
EXAMINATION: XR barium swallow modified DATE: 11/03/2022 10:20 INDICATION: Dysphagia. TECHNIQUE: The patient was given barium-containing material of multiple consistencies to swallow by t skylar speech pathologist while I performed fluoroscopy. Fluoroscopy exposure time was 2.5 minutes. The n umber of fluoroscopy images saved to the PACS was 1. Dose-area product was 1.578 Gy-cm^2. FINDINGS: There is vallecular residue and piriform sinus residue. IMPRESSION: 1. No laryngeal penetration or aspiration. 2. Please refer to the speech therapy report for recommendations. Reviewed, dictated and finalized at location A. WORKER
--- NOTE | ~2022-11-01 | XR_ITS ---
EXAMINATION: XR chest 1V portable DATE: 11/03/2022 05:35 INDICATION: Congestive heart failure. TECHNIQUE: A single frontal view of the chest was obtained. COMPARISON: Chest 2 views 11/01/2022, chest CT 11/01/2022 FINDINGS: There is a diffuse interstitial pattern in the lungs. There are airspace opacities in the m id and lower lung zones. There are small pleural effusions. No pneumothorax. Cardiomegaly is noted. M edian sternotomy wires are noted. There is a right chest pacer with lead in right ventricle. IMPRESSION: 1. Worsened diffuse lung disease, consistent with pulmonary edema versus pneumonia. 2. Small pleural effusions. 3. Cardiomegaly. Reviewed, dictated and finalized at location A. IL STORE CLERK IMPRESSION: 1. Worsened diffuse lung disease, consistent with pulmonary edema versus pneumo shelley. 2. Small pleural effusions. 3. Cardiomegaly.
--- NOTE | ~2022-11-01 | XR_ITS ---
EXAMINATION: XR chest 2V DATE: 11/04/2022 13:24 INDICATION: Congestive heart failure. TECHNIQUE: Frontal and lateral views of the chest were obtained. COMPARISON: Chest one view 11/03/2022 FINDINGS: There is a diffuse reticulonodular pattern in the lungs. There are mild airspace opacities in the mid and lower lung zones. There is a small right pleural effusion. No pneumothorax. Cardiomega ly is noted. Median sternotomy wires are noted. There is a right chest pacer lead in right ventricle. IMPRESSION: 1. Improved diffuse lung disease, consistent with pulmonary edema versus pneumonia. 2. Small right pleural effusion. 3. Cardiomegaly. Reviewed, dictated and finalized at location A. ETING ACCOUNT MANAGER IMPRESSION: 1. Improved diffuse lung disease, consistent with pulmonary edema versus pneumo shelley. 2. Small right pleural effusion. 3. Cardiomegaly.
--- NOTE | 2022-11-01 15:09 | ECG_ITS ---
Measurements Intervals [place]ight Rate: 91 P: IA: 0 QRS: -21 QRSD: 176 T: 148 QT: 414 QTc: 511 Interpretive Statements ATRIAL FIBRILLATION LEFT BUNDLE BRANCH BLOCK BASELINE ARTIFACT- I, II ABNORMAL ECG COMPARED TO ECG 11/15/2020 09:03:44 NO SIGNIFICANT CHANGES Electronically Signed On 11-01-2022 15:49:02 REPRODUCTIVE ENDOCRINOLOGIST by Darrel Wade D.O.
[2022-11-01 15:10] VITALS: BP 114/64; PULSE 93; RESP 18; TEMP 37.6; O2SAT 94
[2022-11-01 15:31] LABS: Basophils Percent Auto 0.5 % (0.2-1.2); Eosinophils Absolute Auto 0.7 K/mm3 (0-0.3); Eosinophils Percent Auto 9.1 % (0-4.4); Hematocrit 33.7 % (42.0-52.0); Hemoglobin 10.9 g/dL (14.0-18.0); Immature Granulocyte Absolute 0.01 K/mm3 (0.00-0.031); Immature Granulocyte Percent A 0.1 % (0-0.5); Lymphocytes Percent Auto 25.7 % (18.3-44.2); Mean Corpuscular HGB Conc 32.3 g/dl (32-36); Mean Corpuscular Hemoglobin 35.6 pg (26-34); Mean Corpuscular Volume 110.1 fl (80-100); Mean Platelet Volume 10.5 fl (7.4-10.4); Monocytes Absolute Auto 0.6 K/mm3 (0.1-0.6); Monocytes Percent Auto 8.2 % (2.6-8.5); Neutrophils Absolute Auto 4.2 K/mm3 (1.3-6.7); Neutrophils Percent Auto 56.4 % (45.5-73.1); Platelet Count Result 201 k/mm3 (150-375); Red Blood Count 3.06 M/mm3 (4.6-6.20); Red Cell Distribution Width 15.6 % (11.5-14.5); White Blood Count 7.4 K/mm3 (4.5-10.0)
[2022-11-01 15:41] LABS: Alanine Aminotransferase 16 U/L (6-50); Albumin Level 3.6 g/dL (3.5-5.1); Alkaline Phosphatase 121 U/L (38-126); Anion Gap 7 mmol/L (8-16); Aspartate Amino Transferase 29 U/L (17-59); Bilirubin,Total 0.7 mg/dL (0.2-1.3); Blood Urea Nitrogen 21 mg/dL (9-20); Calcium 8.6 mg/dL (8.4-10.2); Carbon Dioxide 28 mmol/L (22-30); Chloride 104 mmol/L (98-107); Estimated CRCL calculation 37 ml/min; Estimated Glomerular Filt Rate 57; Glucose 121 mg/dL (65-110); INR 1.3; Prothrombin Time 16.1 Seconds (11.1-14.7); Sodium 139 mmol/L (137-145)
[2022-11-01 15:44] LABS: Macrocytosis 1+ (NORMAL); Ovalocytes 1+ (NORMAL); Platelet Estimate Adequate (Adequate)
[2022-11-01 15:45] LABS: Schistocytes None Seen (NORMAL)
[2022-11-01 17:25] VITALS: O2SAT 93
--- NOTE | 2022-11-01 17:37 | ED.SOB ---
HPI - SOB/Dyspnea General Chief Complaint: Shortness of Breath/Dyspnea Stated Complaint: water on lungs Time Seen by Provider: 11/01/22 17:37 Source: patient and family Mode of arrival: wheelchair Limitations: no limitations History of Present Illness HPI Narrative: Patient is an 87-year-old male with a history of hypertension, congestive heart failure, atrial fibrillation, BPH, presenting to the emergency department for evaluation of shortness of breath. Patient reports shortness of breath at rest that worsens with exertion. He reports cough that began last week. He denies hemoptysis or sputum production. He denies fever, chills but does report generalized malaise and generalized weakness without focal numbness or weakness. Patient denies any significant leg swelling or calf pain. He denies recent fall or injury. No recent sick contacts. Patient denies any frontal chest pain, pleuritic pain, diaphoresis, lightheadedness or dizziness. He has had a slightly decreased appetite per family but continues to tolerate oral intake without nausea or vomiting. No recent medication changes. Patient denies rhinorrhea, congestion, sore throat. Related Data Home Medications Medication Instructions Recorded Confirmed garlic 300 mg PO DAILY 07/17/19 11/01/22 omega-3 fatty acids 500 mg PO DAILY 11/15/20 11/01/22 carvedilol 12.5 mg tablet (Coreg) 25 mg PO DAILY 03/09/21 11/01/22 apixaban 2.5 mg tablet (Eliquis) 5 mg PO BID 09/27/22 11/01/22 Allergies Allergy/AdvReac Type Severity Reaction Status Date / Time DEEPIKA Inhibitors Allergy Unknown Verified 11/01/22 14:28 Review of Systems Review of Systems: CONSTITUTIONAL: Denies fever, chills, or sweats. EYES: Denies visual changes, redness, or discharge. ENT: Denies rhinorrhea, congestion, sore throat, or otalgia. CARDIOVASCULAR: Denies chest pain, palpitations, or edema. RESPIRATORY: Reports cough and shortness of breath GASTROINTESTINAL: Denies abdominal pain, nausea, vomiting, or diarrhea. GENITOURINARY: Denies dysuria or hematuria. SKIN: Denies rash or itching. MUSCULOSKELETAL: Denies back pain, joint pain, or myalgia. NEUROLOGIC: Denies headache, numbness, reports generalized weakness PMFSH Past Medical History Medical History Anemia Chronic macrocytic anemia. Benign prostatic hyperplasia Chronic combined systolic and diastolic congestive heart failure Echocardiogram in January 2020 showed severely reduced left ventricular systolic function with an ejection fraction of 30 to 35% and abnormal diastolic function. Coronary artery disease History of myocardial infarction, status post CABG. COVID-19 (~08/2020) Current use of mcfp anticoagulation History of GI bleed History of rib fracture Hypertension Intermittent palpitations Iron deficiency anemia Left bundle branch block Mixed hyperlipidemia Obstructive sleep apnea Pacemaker Persistent atrial fibrillation Prediabetes Psoriasis Stage 3 chronic kidney disease Baseline creatinine between 1.3 and 1.70. Vitamin B12 deficiency Surgical History Surgical History History of cardiac catheterization (~07/2016) PTCA and stent placement in SVG where it anastomosis to RCA. History of inguinal hernia repair Status post coronary artery bypass grafts x 5 (~1992) Family History Family History Father Diabetes mellitus Acute myocardial infarction Sibling Coronary artery disease Mother Diabetes mellitus Chronic kidney disease Social History Social History Social History: The patient is but remarried within the last 5 years or so. He lives in [place] and has 4 grown children. He smoked remotely when he was young man. No alcohol or illicit substance abuse. Smoking status: Former smoker Second hand t
[2022-11-01 18:26] VITALS: BP 115/55; PULSE 83; RESP 16; O2SAT 95
[2022-11-01 18:58] LABS: Alveolar/Arterial O2 Gradient 45.4 mmHg; Carboxyhemoglobin 0.5 % THb (0-2.0); Fractional Inspired Oxygen 21 %; HCO3 ABG 27.7 mEq/l (22.0-26.0); Methemoglobin ABG 0.3 %THb (0-1.5); Oxygen Content ABG 13.7 %vol (16.0-22.0); Oxygen Saturation ABG 92.1 % (95.0-100.0); Oxyhemoglobin 89.4 % THb (90.0-100.0); PCO2 ABG 38.3 mmHg (35.0-45.0); PO2 ABG 58.5 mmHg (80.0-100.0); PO2 FiO2 Ratio Arterial Blood 2.79 %; Reduced Hemoglobin 9.8 %THb (0-5.0); Total Hemoglobin 10.9 g/dL (12.0-18.0); pH ABG 7.477 (7.350-7.450)
[2022-11-01 18:59] LABS: Device ROOM AIR; Modified Allen's Test Pass; Site Drawn RIGHT RADIAL
--- NOTE | 2022-11-01 19:30 | PC.NURSE ---
Lab calls to report results of spinal fluid gram stain as light wbc's and no organisms seen
[2022-11-01] MEDS: CEFEPIME 2 GM/NS 50 ML 2 GM/50 ML BAG IVPB (19:31)
[2022-11-01 19:41] LABS: Lactic Acid Reflex 1.4 mmol/L (0.7-2.0)
[2022-11-01 19:53] LABS: Troponin I 0.017 ng/mL (0.000-0.034)
[2022-11-01 20:36] VITALS: BP 117/67; PULSE 99; RESP 22; O2SAT 93
[2022-11-01 20:40] LABS: Influenza A QL RT-PCR Negative (Negative); Influenza B QL RT-PCR Negative (Negative); RSV RNA, RT-PCR Negative (Negative); SARS-CoV-2 RNA PCR Negative
--- NOTE | 2022-11-01 20:55 | PM.IMHP ---
H&P: HPI History of Present Illness Date/Time: 11/01/22 20:55 Chief Complaint: 87 years old male with past medical history of AFib combined systolic and diastolic CHF with ejection fraction of 35% on diuretics Kelley and Britany presented to the hospital with shortness of breath worsening gradually worsening with activity patient also complains of cough multiple times a day denies fever or chills patient also has lower extremity swelling at the ER chest x-ray shows positive bilateral opacity concern for infection versus pulmonary edema most likely patient has acute CHF exacerbation with pulmonary edema less likely patient has pneumonia will cover with empiric antibiotic follow culture results will start IV diuresis will get cardiology eval ECG shows AFib with left plantar branch block patient has history of AFib and left bundle-branch block in the past Review of Systems Review of Systems: Twelve system review was done negative except [facility] Past Medical History Medical History (Updated 11/01/22 @ 20:58 by Kike Suazo MD) Anemia Chronic macrocytic anemia. Benign prostatic hyperplasia Chronic combined systolic and diastolic congestive heart failure Echocardiogram in January 2020 showed severely reduced left ventricular systolic function with an ejection fraction of 30 to 35% and abnormal diastolic function. Coronary artery disease History of myocardial infarction, status post CABG. COVID-19 (~08/2020) Current use of care home anticoagulation History of GI bleed History of rib fracture Hypertension Intermittent palpitations Iron deficiency anemia Left bundle branch block Mixed hyperlipidemia Obstructive sleep apnea Pacemaker Persistent atrial fibrillation Prediabetes Psoriasis Stage 3 chronic kidney disease Baseline creatinine between 1.3 and 1.70. Vitamin B12 deficiency Surgical History Surgical History History of cardiac catheterization (~07/2016) PTCA and stent placement in SVG where it anastomosis to RCA. History of inguinal hernia repair Status post coronary artery bypass grafts x 5 (~1992) Family History Family History Father Diabetes mellitus Acute myocardial infarction Sibling Coronary artery disease Mother Diabetes mellitus Chronic kidney disease Social History Social History Social History: The patient is but remarried within the last 5 years or so. He lives in [place] and has 4 grown children. He smoked remotely when he was young man. No alcohol or illicit substance abuse. Smoking status: Former smoker Second hand tobacco smoke exposure: Yes Alcohol intake: never Substance use: never Substance use type: does not use Lack of Transportation: No Lack of Food: Never True Current Housing: I Have Housing Concerned About Future Housing: No Difficulty Paying Gas/Electric Bills: No Difficulty Paying for Meds: No Currently Unemployed: No Education: High School Diploma/GED Difficulty w/ Childcare or Family Care: No Gender identity (if verbalized by the patient): Male Sexual Orientation (if Verbalized by the Patient): Straight or Heterosexual Spiritual care concerns: No Meds Home Medications and Allergies Home Medications Medication Instructions Recorded Confirmed Type garlic 300 mg PO DAILY 07/17/19 09/27/22 History nitroglycerin 0.4 mg sublingual 0.4 mg sublingual Q5M PRN chest 05/30/20 09/27/22 Rx tablet (Nitrostat) pain #25 tabs omega-3 fatty acids 500 mg PO DAILY 11/15/20 09/27/22 History carvedilol 12.5 mg tablet (Coreg) 25 mg PO DAILY 03/09/21 09/27/22 History doxazosin 8 mg tablet 8 mg PO HS #90 tabs 12/07/21 09/27/22 Rx atorvastatin 20 mg tablet 20 mg PO HS #90 tabs 07/27/22 09/27/22 Rx apixaban 2.5 mg tablet (Eliquis) 5 mg PO BID 09/27/22 09/27/22 History ferrou
[2022-11-01 22:17] VITALS: BP 116/63; PULSE 92; RESP 20; O2SAT 94
[2022-11-01 22:30] VITALS: BP 121/70; PULSE 107; RESP 22; TEMP 36.5; O2SAT 92
--- NOTE | 2022-11-01 22:42 | ADMGEN ---
This patient, Armen Felipe, was admitted to [facility] Surg Room 329-01. Patient/family oriented to hospital policies and general routines including ID bracelet, bed and alarms, visiting hours, pain management, procedures, bathroom and other care routines, personal items, smoking policy, room service/diet, and visiting hours. Information on how to activate the Rapid Response Team has been discussed. Patient/Family are encouraged to report perceived risks to care and to ask questions if they do not understand what they are told or what they should do.
[2022-11-01 23:00] VITALS: BMI 24.0
[2022-11-01] MEDS: guaiFENesin 12 HR 600 MG TABCR PO (23:51)
[2022-11-01] MEDS: ACETAMINOPHEN 325 MG TABLET 650 MG PO (23:52)
[2022-11-01] MEDS: FAMOTIDINE 20 MG TABLET PO (23:54)
[2022-11-01] MEDS: FUROSEMIDE INJ 40 MG/4 ML VIAL 20 MG IV PUSH (23:55)
[2022-11-02] VITALS (7 sets, daily range): BP systolic 100–122; BP diastolic 52–59; PULSE 70–90; RESP 16–22; TEMP 36–36.4; O2SAT 97–100
[2022-11-02 01:36] LABS: Troponin I 0.016 ng/mL (0.000-0.034)
[2022-11-02 01:50] LABS: Procalcitonin 0.1 ng/mL
--- NOTE | 2022-11-02 04:50 | PC.NURSE ---
Pt admitted to 3rd floor from ER with 2 family members. Pt alert calm cooperative Pt with complaints of shortness of breath. Family left and this nurse was in room when pt took sip of coffee, stopped breathing for couple seconds then strted coughing. Coughing on and off for 1/2 hour. When asked pt states that he frequently coughs when eats . Ordered NPO x meds. Order to see ST. Pt states that he fell at home ,crawled to a chair- less than a month ago. Fall/safety precautions. Frequent rounding. bed alarm instructions given on plan of care, hospital environment, use of call light.
[2022-11-02] MEDS: CEFEPIME 2 GM/NS 50 ML 2 GM/50 ML BAG IVPB ×2 (06:10→17:11)
[2022-11-02 06:26] LABS: Basophils Percent Auto 0.5 % (0.2-1.2); Eosinophils Absolute Auto 0.7 K/mm3 (0-0.3); Eosinophils Percent Auto 9.2 % (0-4.4); Hematocrit 29.2 % (42.0-52.0); Hemoglobin 9.4 g/dL (14.0-18.0); Immature Granulocyte Absolute 0.03 K/mm3 (0.00-0.031); Immature Granulocyte Percent A 0.4 % (0-0.5); Lymphocytes Absolute Auto 1.72 K/mm3 (0.9-3.2); Lymphocytes Percent Auto 23.6 % (18.3-44.2); Mean Corpuscular HGB Conc 32.2 g/dl (32-36); Mean Corpuscular Hemoglobin 35.5 pg (26-34); Mean Corpuscular Volume 110.2 fl (80-100); Mean Platelet Volume 10.3 fl (7.4-10.4); Monocytes Absolute Auto 0.6 K/mm3 (0.1-0.6); Monocytes Percent Auto 8.1 % (2.6-8.5); Neutrophils Absolute Auto 4.3 K/mm3 (1.3-6.7); Neutrophils Percent Auto 58.2 % (45.5-73.1); Platelet Count Result 167 k/mm3 (150-375); Red Blood Count 2.65 M/mm3 (4.6-6.20); Red Cell Distribution Width 15.5 % (11.5-14.5); White Blood Count 7.3 K/mm3 (4.5-10.0)
[2022-11-02 06:33] LABS: Alanine Aminotransferase 16 U/L (6-50); Albumin Level 2.9 g/dL (3.5-5.1); Alkaline Phosphatase 103 U/L (38-126); Anion Gap 3 mmol/L (8-16); Aspartate Amino Transferase 25 U/L (17-59); Bilirubin,Total 0.8 mg/dL (0.2-1.3); Blood Urea Nitrogen 17 mg/dL (9-20); Carbon Dioxide 29 mmol/L (22-30); Chloride 104 mmol/L (98-107); Estimated CRCL calculation 41 ml/min; Estimated Glomerular Filt Rate > 60; Glucose 96 mg/dL (65-110); Potassium 3.4 mmol/L (3.4-5.0); Sodium 136 mmol/L (137-145)
[2022-11-02 06:43] LABS: Troponin I 0.023 ng/mL (0.000-0.034)
[2022-11-02 07:17] LABS: Platelet Estimate Adequate (Adequate); Target Cells 1+ (NORMAL)
[2022-11-02 07:18] LABS: Hypochromasia 1+ (NORMAL); Macrocytosis 1+ (NORMAL); Ovalocytes 1+ (NORMAL); Poikilocytosis 1+ (NORMAL); Schistocytes None Seen (NORMAL)
[2022-11-02] MEDS: POTASSIUM CHLORIDE 20 MEQ TABLET 40 MEQ PO (08:28)
[2022-11-02] MEDS: guaiFENesin 12 HR 600 MG TABCR PO ×2 (08:28→21:00)
[2022-11-02] MEDS: carvediloL 12.5 MG TABLET PO ×2 (08:28→21:00)
[2022-11-02] MEDS: APIXABAN 5 MG TABLET BY MOUTH ×2 (08:28→17:12)
[2022-11-02] MEDS: FUROSEMIDE INJ 40 MG/4 ML VIAL 20 MG IV PUSH (08:29)
[2022-11-02] MEDS: FAMOTIDINE 20 MG TABLET PO ×2 (08:29→21:00)
--- NOTE | 2022-11-02 10:02 | PCSTNOTE ---
Patient is strict NPO for surgery today according to [facility]. Unable to complete Bedsie Swallow Eval this morning. Will check in later.
--- NOTE | 2022-11-02 13:59 | PCSTNOTE ---
Please refer to the Bedside Swallow Evaluation in the EMR. Please note, silent aspiration cannot be ruled out at bedside.
--- NOTE | 2022-11-02 15:04 | PM.CNCAR ---
Assessment and Plan Assessment and plan (1) Pulmonary edema: Code(s): J81.1 - Chronic pulmonary edema Status: Acute (2) Atrial fibrillation: Code(s): I48.91 - Unspecified atrial fibrillation Status: Acute (3) CHF exacerbation: Code(s): I50.9 - Heart failure, unspecified Status: Acute Plan this is a very pleasant 87-year-old man with chronic ischemic heart disease atrial fibrillation mild LV systolic dysfunction by recent evaluation at [facility] as well as recently implanted pacemaker for treatment of symptomatic pauses couple of months ago. He enters the hospital with a mild decompensation of left-sided heart failure. There are no right-sided findings at all on physical exam. I will advance his furosemide dosage from his baseline to 40 mg q.12 hours to try to clear the pulmonary congestion. For now I am not going to adjust the rest of his medical regimen. It is very curious to me that he is not receiving DEEPIKA-inhibitor or Arb rather he is receiving doxazosin as his vaso dilator. I will presume that there is a reason for this that I am not noticing in the chart. When the patient is euvolemic and pulmonary congestion is really solved he can be discharged for follow-up with his longstanding established physicians at [facility]. Lucas Kern MD [facility] History of Present Illness History of Present Illness Consult date/time: 11/02/22 15:04 Reason For Visit: Pneumonia, pulmonary edema Narrative: This is an 87-year-old man I am seeing in this afternoon at the request of the hospitalist to assist with management of congestive heart failure. This patient is unknown to me prior to this admission but apparently has a longstanding history of coronary artery disease, heart failure with reduced ejection fraction, chronic atrial fibrillation and is managed by the cardiovascular department at [facility]. The patient came to this hospital yesterday from his home in [place] by his private car because of about 5 days of increasing shortness of breath. He says he was having shortness of breath with walking and also waking up at night several times with dyspnea. He has not been noticing lower extremity edema. He appears to be comfortable at this time and has no other complaints. He was not noticing any symptoms of chest pain pressure or heaviness. The patient has coronary artery disease a chronic AFib it is a longstanding patient of Dr. Fermin in the Department of Cardiology at [facility]. The patient also has chronic atrial fibrillation. According to the records he underwent multivessel bypass grafting way back in 1992 after which he also underwent percutaneous intervention with stenting of his right coronary vein graft. He had a history of LV systolic dysfunction with ejection fractions that have been varying between the high 30s and mid 40s. He has been anticoagulated with apixaban both because of chronic atrial fibrillation as well as some concern on previous echos over there that he might have had a left ventricular apical thrombus. Most recently at [facility] he received a pacemaker implant device in September of 2022 he was undergoing evaluation for syncope at that time it was noticed on a event monitor to have asystolic pauses of more than 8 seconds. Electrophysiology at [facility] implanted his pacemaker device. The patient otherwise feels comfortable and denies any additional complaints now he says he feels somewhat better than yesterday when he was admitted to the hospital. His chest x-ray does show changes of his previous cardiovascular surgery modest enlargement of the cardiac silhouette and some bibasilar pulmonary congestion. Review of Systems Constitutional: Constitutional: Reports no additional constitutional complaints Eyes: Eyes: Reports no additional eye complaints ENT: Reports system reviewed and no additional complaints, except as documented Cardiovascular: Cardiovascular: Reports no additional ca
--- NOTE | 2022-11-02 15:32 | PM.IMPN ---
Progress Note: A&P Assessment and Plan (1) Acute respiratory failure with hypoxia: Code(s): J96.01 - Acute respiratory failure with hypoxia Status: Acute Assessment and Plan: Most likely related to pulmonary edema secondary to CHF exacerbation IV diuresis nebulizer treatment. Stable on 2L. Wean O2 as tolerated (2) Acute on chronic systolic (congestive) heart failure: Code(s): I50.23 - Acute on chronic systolic (congestive) heart failure Status: Acute Assessment and Plan: CTA negative for PE but shows diffuse lung disease. Started on IV Lasix. Appears comfortable. Echo ordered. Appreciate Cardiology input. Continue Coreg. Not on ACEI/ARB for unclear reason. (3) Pneumonia: Qualifiers: Pneumonia type: due to unspecified organism Laterality: bilateral Lung location: unspecified part of lung Qualified Code(s): J18.9 - Pneumonia, unspecified organism Code(s): J18.9 - Pneumonia, unspecified organism Status: Suspected Assessment and Plan: Patient has pulmonary edema less likely patient has pneumonia. Patient has history of dysphagia in the past. Speech evaluation reviewed and appreciated. Check MBS (4) Debility, unspecified: Code(s): R53.81 - Other malaise Status: Acute Assessment and Plan: Most likely related to acute CHF exacerbation. PT/OT (5) Atrial fibrillation: Code(s): I48.91 - Unspecified atrial fibrillation Status: Acute Assessment and Plan: EKG conforms AFib. Probabaly chronic. Rate controlled. Pacemaker in place. Continue Coreg and Eliquis (6) History of CVA (cerebrovascular accident): Code(s): Z86.73 - Personal history of transient ischemic attack (TIA), and cerebral infarction without residual deficits Status: Acute Assessment and Plan: PT/OT (7) HTN (hypertension), benign: Code(s): I10 - Essential (primary) hypertension Status: Acute Assessment and Plan: Patient's blood pressure was reviewed on 3/ Blood pressure remains well controlled. Will continue current medications. (8) Dysphagia: Code(s): R13.10 - Dysphagia, unspecified Status: Acute Assessment and Plan: As above (9) Stage III chronic kidney disease: Code(s): N18.3 - Chronic kidney disease, stage 3 (moderate) Status: Acute Assessment and Plan: Cr stable at 1.1. He received contrast yesterday and on diuretics so monitor closely. (10) Hyperlipidemia: Code(s): E78.5 - Hyperlipidemia, unspecified Status: Acute Assessment and Plan: LFts okay. Continue statin (11) BPH (benign prostatic hyperplasia): Code(s): N40.0 - Benign prostatic hyperplasia without lower urinary tract symptoms Status: Acute Assessment and Plan: Monitor urine output (12) Anemia: Qualifiers: Anemia type: unspecified type Qualified Code(s): D64.9 - Anemia, unspecified Code(s): D64.9 - Anemia, unspecified Status: Chronic Assessment and Plan: Patient with a chronic macrocytic anemia. B12 is normal. MMA was normal few years ago. Hemoglobin stable in the 9-10 range which is chronic for this patient. Follow Subjective Date/time seen: 11/02/22 15:32 Interval history: 87yo male with AFib, HTN, CHF and hx of CVA here for shortness of breath. Patient denies any shortness of breath. No cough. No pedal edema. No calf pain. He has no history of COPD, emphysema or asthma. He does not have sleep apnea. He does not wear oxygen at home. Does not wear CPAP at home. He has a slight cough that is nonproductive. Exam Narrative: AF 97.2 100/52 70 16 100% 2L Gen - NARD Chest - minor bibasilar crackles, nml RR CV - irregularly irregular. nml rate Abd - Soft, NT/ND, Positive BS Ext - No pedal edema Psych - Nml mood and affect Skin - Warm and dry Objective Data Vital Sign
[2022-11-02] MEDS: FUROSEMIDE INJ 40 MG/4 ML VIAL IV PUSH (17:12)
--- NOTE | 2022-11-02 20:49 | ECHO_ITS ---
Patient Info Name: Armen Felipe Age: 87 years : 1935 Gender: Male Ht: 68 in Wt: 150 lbs BSA: 1.81 m2 HR: 72 bpm BP: 121 / 70 mmHg Heart Rhythm: Paced Technical Quality: Fair Exam Date: 11/02/2022 10:41 AM Exam Location: [facility] Pulmonary Exam Room: 329 Patient Status: Inpatient Admit Date: 11/02/2022 Staff Ordering Physician: Kike Suazo M.A., MD Clinical Staff Rn: Oriana Corea RDCS Attending Provider: Kike Suazo M.A., MD Referring Physician: Artem MOY; Exam Type: CA echo doppler color flow Study Info Indications - CHF Complete two-dimensional, color flow and Doppler transthoracic echocardiogram is performed. Summary 1. Complete two-dimensional, color flow and Doppler transthoracic echocardiogram is performed. 2. Left ventricular chamber dimension is severely enlarged. 3. Left ventricular systolic function is severely reduced, estimated at 20-25%. 4. Linear artifact in right ventricle suggestive of catheter(s), pacemaker lead(s), or ICD lead(s). 5. Biatrial dilation. 6. Mild aortic mitral and tricuspid regurgitation. Left Ventricle Left ventricular chamber dimension is severely enlarged. Left ventricular systolic function is severely reduced, estimated at 20-25%. The left ventricular diastolic function is indeterminate. Right Ventricle Right ventricular chamber dimension is normal. Linear artifact in right ventricle suggestive of catheter(s), pacemaker lead(s), or ICD lead(s). Left Atria Left atrial chamber dimension is severely enlarged. Right Atria Right atrial chamber dimension is moderately enlarged. Aortic Valve The aortic valve is trileaflet. There is mild aortic valve sclerosis. There is trace aortic valve regurgitation. Pulmonic Valve The pulmonic valve is not well visualized. Mitral Valve The mitral valve has normal leaflets. There is mild mitral valve regurgitation. Tricuspid Valve The tricuspid valve leaflets are normal. There is mild tricuspid valve regurgitation. Pericardium/Pleural The pericardium appears normal. Aorta The aortic root size at the sinus of Valsalva is normal. Left Ventricular Outflow Tract Name Value Normal LVOT 2D LVOT Diameter 2.0 cm LVOT Doppler LVOT Peak Gradient 5 mmHg LVOT Mean Gradient 2 mmHg LVOT VTI 21 cm LVOT VTI/AV VTI Ratio 0.8 LVOT Stroke Volume 67 ml LVOT CO 14.3 l/min LVOT CI 7.9 l/min/m2 Pulmonic Valve Name Value Normal PV Doppler PV Peak Gradient 3 mmHg PV Regurgitation Doppler UT Peak End Diastolic Giuseppe
[2022-11-02] MEDS: ACETAMINOPHEN 325 MG TABLET 650 MG PO (20:58)
[2022-11-02] MEDS: DOXAZOSIN MESYLATE 4 MG TABLET 8 MG PO (21:03)
[2022-11-02] MEDS: ATORVASTATIN 20 MG TABLET PO (21:03)
[2022-11-03] VITALS (7 sets, daily range): BP systolic 98–106; BP diastolic 46–59; PULSE 76–90; RESP 17–20; TEMP 35.8–36.7; O2SAT 91–96
[2022-11-03] MEDS: CEFEPIME 2 GM/NS 50 ML 2 GM/50 ML BAG IVPB ×2 (06:24→17:27)
[2022-11-03 07:09] LABS: Basophils Percent Auto 0.5 % (0.2-1.2); Eosinophils Absolute Auto 0.9 K/mm3 (0-0.3); Eosinophils Percent Auto 11.5 % (0-4.4); Hematocrit 30.2 % (42.0-52.0); Hemoglobin 9.8 g/dL (14.0-18.0); Immature Granulocyte Absolute 0.03 K/mm3 (0.00-0.031); Immature Granulocyte Percent A 0.4 % (0-0.5); Lymphocytes Absolute Auto 1.29 K/mm3 (0.9-3.2); Lymphocytes Percent Auto 17.3 % (18.3-44.2); Mean Corpuscular HGB Conc 32.5 g/dl (32-36); Mean Corpuscular Hemoglobin 35.6 pg (26-34); Mean Corpuscular Volume 109.8 fl (80-100); Mean Platelet Volume 10.3 fl (7.4-10.4); Monocytes Absolute Auto 0.5 K/mm3 (0.1-0.6); Monocytes Percent Auto 7.1 % (2.6-8.5); Neutrophils Absolute Auto 4.7 K/mm3 (1.3-6.7); Neutrophils Percent Auto 63.2 % (45.5-73.1); Platelet Count Result 160 k/mm3 (150-375); Red Blood Count 2.75 M/mm3 (4.6-6.20); Red Cell Distribution Width 15.5 % (11.5-14.5); White Blood Count 7.5 K/mm3 (4.5-10.0)
[2022-11-03 07:23] LABS: Alanine Aminotransferase 16 U/L (6-50); Albumin Level 3.1 g/dL (3.5-5.1); Alkaline Phosphatase 96 U/L (38-126); Anion Gap 2 mmol/L (8-16); Aspartate Amino Transferase 26 U/L (17-59); Bilirubin,Total 0.6 mg/dL (0.2-1.3); Blood Urea Nitrogen 21 mg/dL (9-20); Carbon Dioxide 30 mmol/L (22-30); Chloride 101 mmol/L (98-107); Estimated CRCL calculation 35 ml/min; Estimated Glomerular Filt Rate 52; Glucose 99 mg/dL (65-110); Potassium 3.6 mmol/L (3.4-5.0); Sodium 133 mmol/L (137-145)
--- NOTE | 2022-11-03 07:29 | PC.NURSE ---
this nurse gave pt water with medication Pt coughed for several minutes afterwards
[2022-11-03 07:54] LABS: Anisocytosis 1+ (NORMAL); Macrocytosis 1+ (NORMAL); Platelet Estimate Adequate (Adequate)
[2022-11-03 07:55] LABS: Schistocytes None Seen (NORMAL); Target Cells 1+ (NORMAL)
[2022-11-03] MEDS: carvediloL 12.5 MG TABLET PO ×2 (08:31→20:21)
[2022-11-03] MEDS: FUROSEMIDE INJ 40 MG/4 ML VIAL IV PUSH ×2 (08:31→17:27)
[2022-11-03] MEDS: guaiFENesin 12 HR 600 MG TABCR PO ×2 (08:31→20:21)
[2022-11-03] MEDS: APIXABAN 5 MG TABLET BY MOUTH ×2 (08:31→17:28)
[2022-11-03] MEDS: FAMOTIDINE 20 MG TABLET PO ×2 (08:31→20:21)
--- NOTE | 2022-11-03 10:00 | PM.PNCARD ---
Progress Note: A&P Assessment and Plan (1) Pulmonary edema: Code(s): J81.1 - Chronic pulmonary edema Status: Acute Assessment and Plan: Breathing better. Continue IV diuretics (2) Atrial fibrillation: Code(s): I48.91 - Unspecified atrial fibrillation Status: Acute Assessment and Plan: On anticoagulation (3) CHF exacerbation: Code(s): I50.9 - Heart failure, unspecified Status: Acute Assessment and Plan: As detailed below (4) Cardiomyopathy: Code(s): I42.9 - Cardiomyopathy, unspecified Status: Acute Assessment and Plan: Ejection fraction is significantly worse. May need biventricular upgrade. (5) Acute on chronic systolic (congestive) heart failure: Code(s): I50.23 - Acute on chronic systolic (congestive) heart failure Status: Acute Assessment and Plan: Continue beta-flo. Continue IV diuresis. Will replace potassium with 40 mEq p.o. x1. Would start low-dose Entresto but his blood pressure is low at this point. Will reduce his doxazosin to 4 mg daily in the hopes that his blood pressure will come up in order to add some Entresto. May stop the doxazosin completely Subjective Date/time seen: 11/03/22 10:00 Interval history: 87yo male with AFib, HTN, CHF and hx of CVA here for shortness of breath. Date of service 11/03/2022: He feels better today. No chest pain or shortness of breath. Review of Systems Constitutional: Constitutional: Reports no additional constitutional complaints Eyes: Eyes: Reports no additional eye complaints ENT: Reports system reviewed and no additional complaints, except as documented Cardiovascular: Cardiovascular: Reports no additional cardiovascular complaints and Reports dyspnea Respiratory: Respiratory: Reports dyspnea Gastrointestinal: Gastrointestinal: Reports as per HPI Musculoskeletal: Musculoskeletal: Reports no additional musculoskeletal complaints Neurologic: Reports system reviewed and no additional complaints, except as documented Endocrine: Endocrine: Reports no additional endocrine complaints Hematologic/Lymphatic: Hematologic/Lymphatic: Reports no additional hematologic/lymphatic complaints Allergic/Immunologic: Allergic/Immunologic: Reports no additional allergic/immunologic complaints Exam Const: General: comfortable and no acute distress Other: very pleasant somewhat frail looking elderly man resting comfortably flat in bed room air no distress HENMT: Mouth: Yes moist mucous membranes Eyes: Sclera: sclerae normal Pupils: Equal, round and reactive pupils present Neck: Neck: supple and no JVD Other: normal carotid pulses bilaterally Resp: Effort & Inspection: normal respiratory effort Other: patient has bibasilar pulmonary rales somewhat more prominent on the right than on the left Cardio: Rhythm: regular rhythm Other: systolic crescendo decrescendo audible at the left sternal border without radiation no diastolic murmur GI: Auscultation: normal bowel sounds Skin: General skin exam: normal color Neuro: Cranial nerves: Yes Equal, round and reactive pupils present Other: alert and oriented x3 normal cognition Extrem: Other: warm and well perfused, no edema Objective Data Vital Signs Vital Signs: Vital Signs - 24 hr 11/02/22 13:43 11/02/22 21:00 11/02/22 22:05 Temperature 36.2 C L Pulse Rate 70 82 Respiratory Rate 16 Blood Pressure 100/52 L Pulse Oximetry 100 97 Oxygen Delivery Nasal Cannula Oxygen Flow Rate 2 11/02/22 22:00 11/03/22 06:00 11/03/22 08:31 Temperature 36.4 C 35.8 C L Pulse Rate 80 82 76 Respiratory Rate 18 20 Blood Pressure 104/56 L 98/46 L Pulse Oximetry 98 96 Oxygen Delivery Oxygen Flow Rate 11/03/22 08:00 Temperature Pulse Rate Respiratory Rate Blood Pressure Pulse Oximetry 95 Oxygen Delivery Room Air Oxygen Flow Rate Intake/Output Intake/Output
--- NOTE | 2022-11-03 10:20 | PCSTNOTE ---
Please refer to the Modified Barium Swallow Evaluation in the EMR.
[2022-11-03] MEDS: POTASSIUM CHLORIDE 20 MEQ TABLET 40 MEQ PO (11:54)
--- NOTE | 2022-11-03 14:39 | PM.IMPN ---
Progress Note: A&P Assessment and Plan (1) Acute on chronic systolic (congestive) heart failure: Code(s): I50.23 - Acute on chronic systolic (congestive) heart failure Status: Acute Assessment and Plan: CTA negative for PE but shows diffuse lung disease. Started on IV Lasix. Echo showing EF 30-25% with indeterminate diastolic function. Appreciate Cardiology input. Continue Coreg. Allergy to ACEI. Not on ARB for unclear reason and adding this is being considered. Cr up to 1.3 today. (2) Acute respiratory failure with hypoxia: Code(s): J96.01 - Acute respiratory failure with hypoxia Status: Acute Assessment and Plan: Patient presents with shortness of breath. CTA shows diffuse lung disease consistent with pneumonia and/or pulmonary edema. Most likely related to pulmonary edema secondary to CHF exacerbation. Was started on IV diuretics. Although his chest x-ray today looks worse, he clinically is improved. Speech therapy with MBS showing that patient can protect his airway so continue heart healthy diet. He has been weaned to room air. As above. (3) Pneumonia: Qualifiers: Pneumonia type: due to unspecified organism Laterality: bilateral Lung location: unspecified part of lung Qualified Code(s): J18.9 - Pneumonia, unspecified organism Code(s): J18.9 - Pneumonia, unspecified organism Status: Suspected Assessment and Plan: Patient has pulmonary edema less likely pneumonia. Patient has history of dysphagia in the past but did well with the MBS. CXR reviewed and appears worse. Continue IV abx until we see some radiographic improvement. (4) Debility, unspecified: Code(s): R53.81 - Other malaise Status: Acute Assessment and Plan: Most likely related to acute CHF exacerbation. Continue PT/OT (5) Atrial fibrillation: Code(s): I48.91 - Unspecified atrial fibrillation Status: Acute Assessment and Plan: EKG confirms AFib. Probably chronic. Rate controlled. Pacemaker in place. Continue Coreg and Eliquis (6) History of CVA (cerebrovascular accident): Code(s): Z86.73 - Personal history of transient ischemic attack (TIA), and cerebral infarction without residual deficits Status: Acute Assessment and Plan: With right sided weakness. Did well with swallow study. Continue PT/OT (7) HTN (hypertension), benign: Code(s): I10 - Essential (primary) hypertension Status: Acute Assessment and Plan: Patient's blood pressure was reviewed on 11/03 Blood pressure remains well controlled. Will continue current medications. (8) Dysphagia: Code(s): R13.10 - Dysphagia, unspecified Status: Acute Assessment and Plan: As above (9) Stage III chronic kidney disease: Code(s): N18.3 - Chronic kidney disease, stage 3 (moderate) Status: Acute Assessment and Plan: Cr up to 1.3. He received contrast 3/ and on diuretics so monitor closely. (10) Hyperlipidemia: Code(s): E78.5 - Hyperlipidemia, unspecified Status: Acute Assessment and Plan: LFts okay. Continue statin (11) BPH (benign prostatic hyperplasia): Code(s): N40.0 - Benign prostatic hyperplasia without lower urinary tract symptoms Status: Acute Assessment and Plan: Monitor urine output (12) Anemia: Qualifiers: Anemia type: unspecified type Qualified Code(s): D64.9 - Anemia, unspecified Code(s): D64.9 - Anemia, unspecified Status: Chronic Assessment and Plan: Patient with a chronic macrocytic anemia. B12 is normal. MMA was normal few years ago. Hemoglobin stable in the 9-10 range which is chronic for this patient. Follow Subjective Date/time seen: 11/03/22 14:39 Interval history: 87yo male with AFib, HTN, CHF and hx of CVA here for shortness of breath. He feels shortness of breath is better.
[2022-11-03] MEDS: ATORVASTATIN 20 MG TABLET PO (20:21)
[2022-11-03] MEDS: DOXAZOSIN MESYLATE 4 MG TABLET PO (20:21)
[2022-11-04] MEDS: CEFEPIME 2 GM/NS 50 ML 2 GM/50 ML BAG IVPB ×2 (05:29→18:04)
[2022-11-04 06:00] VITALS: BP 114/71; PULSE 83; RESP 16; TEMP 36.6; O2SAT 94
[2022-11-04 06:14] LABS: Basophils Percent Auto 0.5 % (0.2-1.2); Eosinophils Absolute Auto 0.9 K/mm3 (0-0.3); Eosinophils Percent Auto 11.1 % (0-4.4); Hematocrit 30.9 % (42.0-52.0); Immature Granulocyte Absolute 0.04 K/mm3 (0.00-0.031); Immature Granulocyte Percent A 0.5 % (0-0.5); Lymphocytes Absolute Auto 1.65 K/mm3 (0.9-3.2); Lymphocytes Percent Auto 19.7 % (18.3-44.2); Mean Corpuscular HGB Conc 32.4 g/dl (32-36); Mean Corpuscular Hemoglobin 35.3 pg (26-34); Mean Corpuscular Volume 109.2 fl (80-100); Mean Platelet Volume 10.4 fl (7.4-10.4); Monocytes Absolute Auto 0.7 K/mm3 (0.1-0.6); Monocytes Percent Auto 8.4 % (2.6-8.5); Neutrophils Percent Auto 59.8 % (45.5-73.1); Platelet Count Result 163 k/mm3 (150-375); Red Blood Count 2.83 M/mm3 (4.6-6.20); Red Cell Distribution Width 15.2 % (11.5-14.5); White Blood Count 8.4 K/mm3 (4.5-10.0)
[2022-11-04 06:22] LABS: Albumin Level 3.2 g/dL (3.5-5.1); Anion Gap 4 mmol/L (8-16); Blood Urea Nitrogen 25 mg/dL (9-20); Calcium 8.3 mg/dL (8.4-10.2); Carbon Dioxide 29 mmol/L (22-30); Chloride 98 mmol/L (98-107); Estimated CRCL calculation 35 ml/min; Estimated Glomerular Filt Rate 52; Glucose 93 mg/dL (65-110); Magnesium 2.1 mg/dL (1.6-2.3); Potassium 3.5 mmol/L (3.4-5.0); Sodium 131 mmol/L (137-145)
[2022-11-04 06:46] LABS: Macrocytosis 1+ (NORMAL); Platelet Estimate Adequate (Adequate); Schistocytes None Seen (NORMAL); Target Cells 1+ (NORMAL)
--- NOTE | 2022-11-04 08:47 | PM.PNCARD ---
Progress Note: A&P Assessment and Plan (1) Pulmonary edema: Code(s): J81.1 - Chronic pulmonary edema Status: Acute Assessment and Plan: Breathing better. will reduce his IV furosemide 20 mg IV q.12 hours. (2) Atrial fibrillation: Code(s): I48.91 - Unspecified atrial fibrillation Status: Acute Assessment and Plan: On anticoagulation (3) CHF exacerbation: Code(s): I50.9 - Heart failure, unspecified Status: Acute Assessment and Plan: As detailed below (4) Cardiomyopathy: Code(s): I42.9 - Cardiomyopathy, unspecified Status: Acute Assessment and Plan: Ejection fraction is significantly worse. May need biventricular upgrade. needs ischemic evaluation. Will keep NPO after midnight for possibility of angiogram tomorrow (5) Acute on chronic systolic (congestive) heart failure: Code(s): I50.23 - Acute on chronic systolic (congestive) heart failure Status: Acute Assessment and Plan: Continue beta-flo. Continue IV diuresis. Will replace potassium with 40 mEq p.o. x1. Would start low-dose Entresto but his blood pressure is low at this point. Continue his lower dose doxazosin to 4 mg daily in the hopes that his blood pressure will come up in order to add some Entresto. May stop the doxazosin completely Subjective Date/time seen: 11/04/22 08:47 Interval history: 87yo male with AFib, HTN, CHF and hx of CVA here for shortness of breath. Date of service 11/03/2022: He feels better today. No chest pain or shortness of breath. Date of service 11/04/2022: Feels better. Less short of breath. No chest pain Review of Systems Constitutional: Constitutional: Reports no additional constitutional complaints Eyes: Eyes: Reports no additional eye complaints ENT: Reports system reviewed and no additional complaints, except as documented Cardiovascular: Cardiovascular: Reports no additional cardiovascular complaints and Reports dyspnea Respiratory: Respiratory: Reports dyspnea Gastrointestinal: Gastrointestinal: Reports as per HPI Musculoskeletal: Musculoskeletal: Reports no additional musculoskeletal complaints Neurologic: Reports system reviewed and no additional complaints, except as documented Endocrine: Endocrine: Reports no additional endocrine complaints Hematologic/Lymphatic: Hematologic/Lymphatic: Reports no additional hematologic/lymphatic complaints Allergic/Immunologic: Allergic/Immunologic: Reports no additional allergic/immunologic complaints Exam Const: General: comfortable and no acute distress Other: very pleasant somewhat frail looking elderly man resting comfortably flat in bed room air no distress HENMT: Mouth: Yes moist mucous membranes Eyes: Sclera: sclerae normal Pupils: Equal, round and reactive pupils present Neck: Neck: supple and no JVD Other: normal carotid pulses bilaterally Resp: Effort & Inspection: normal respiratory effort Other: patient has bibasilar pulmonary rales somewhat more prominent on the right than on the left Cardio: Rhythm: regular rhythm Other: systolic crescendo decrescendo audible at the left sternal border without radiation no diastolic murmur GI: Auscultation: normal bowel sounds Skin: General skin exam: normal color Neuro: Cranial nerves: Yes Equal, round and reactive pupils present Other: alert and oriented x3 normal cognition Extrem: Other: warm and well perfused, no edema Objective Data Vital Signs Vital Signs: Vital Signs - 24 hr 11/03/22 09:46 11/03/22 14:10 11/03/22 20:16 Temperature 36.4 C 36.5 C Pulse Rate 87 90 Respiratory Rate 20 17 Blood Pressure 106/56 L 105/59 L Pulse Oximetry 94 92 Oxygen Delivery Room Air 11/03/22 20:21 11/03/22 20:00 11/03/22 21:47 Temperature 36.7 C Pulse Rate 90 87 Respiratory Rate 18 Blood Pressure Pulse Oximetry 91 Oxygen Delivery Room Air 11/04/22 06:00
[2022-11-04] MEDS: FAMOTIDINE 20 MG TABLET PO ×2 (09:21→20:15)
[2022-11-04] MEDS: carvediloL 12.5 MG TABLET PO ×2 (09:21→20:12)
[2022-11-04] MEDS: FERROUS SULFATE 324 MG TABLET PO (09:21)
[2022-11-04] MEDS: FUROSEMIDE INJ 40 MG/4 ML VIAL 20 MG IV PUSH (09:21)
[2022-11-04] MEDS: APIXABAN 5 MG TABLET BY MOUTH ×2 (09:21→18:00)
[2022-11-04] MEDS: guaiFENesin 12 HR 600 MG TABCR PO ×2 (09:21→20:12)
[2022-11-04] MEDS: POTASSIUM CHLORIDE 20 MEQ TABLET 40 MEQ PO (09:24)
[2022-11-04 14:00] VITALS: BP 94/61; PULSE 70; RESP 16; TEMP 36.5; O2SAT 92
--- NOTE | 2022-11-04 16:00 | PM.IMPN ---
Progress Note: A&P Assessment and Plan (1) Acute on chronic systolic (congestive) heart failure: Code(s): I50.23 - Acute on chronic systolic (congestive) heart failure Status: Acute Assessment and Plan: CTA negative for PE but shows diffuse lung disease. Started on IV Lasix. Echo showing EF 30-25% with indeterminate diastolic function. Appreciate Cardiology input. Continue Coreg. Allergy to ACEI. Not on ARB for unclear reason and adding this is being considered. Cr stable at 1.3. 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 He would go back to [place] to have any testing done if needed. Follow. Remove NPO. (2) Pneumonia: Qualifiers: Laterality: bilateral Lung location: unspecified part of lung Pneumonia type: due to unspecified organism Qualified Code(s): J18.9 - Pneumonia, unspecified organism Code(s): J18.9 - Pneumonia, unspecified organism Status: Suspected Assessment and Plan: Patient has pulmonary edema less likely pneumonia. Patient has history of dysphagia in the past but did well with the MBS. CXR reviewed and now improving. Continue IV abx (3) Acute respiratory failure with hypoxia: Code(s): J96.01 - Acute respiratory failure with hypoxia Status: Acute Assessment and Plan: Patient presents with shortness of breath. CTA shows diffuse lung disease consistent with pneumonia and/or pulmonary edema. Most likely related to pulmonary edema secondary to CHF exacerbation. Was started on IV diuretics. CXR improved today. Speech therapy with MBS showing that patient can protect his airway so continue heart healthy diet. He has been weaned to room air. As above. (4) Debility, unspecified: Code(s): R53.81 - Other malaise Status: Acute Assessment and Plan: Most likely related to acute CHF exacerbation. Continue PT/OT (5) Atrial fibrillation: Code(s): I48.91 - Unspecified atrial fibrillation Status: Acute Assessment and Plan: EKG confirms AFib. Probably chronic. Rate controlled. Pacemaker in place. Continue Coreg and Eliquis (6) History of CVA (cerebrovascular accident): Code(s): Z86.73 - Personal history of transient ischemic attack (TIA), and cerebral infarction without residual deficits Status: Acute Assessment and Plan: With right sided weakness. Did well with swallow study. Continue PT/OT (7) HTN (hypertension), benign: Code(s): I10 - Essential (primary) hypertension Status: Acute Assessment and Plan: Patient's blood pressure was reviewed on 11/04 Blood pressure remains well controlled. Will continue current medications. (8) Dysphagia: Code(s): R13.10 - Dysphagia, unspecified Status: Acute Assessment and Plan: As above (9) Stage III chronic kidney disease: Code(s): N18.3 - Chronic kidney disease, stage 3 (moderate) Status: Acute Assessment and Plan: Cr up to 1.3 and stable. He received contrast 3/ and on diuretics so monitor closely. (10) Hyperlipidemia: Code(s): E78.5 - Hyperlipidemia, unspecified Status: Acute Assessment and Plan: LFts okay. Continue statin (11) BPH (benign prostatic hyperplasia): Code(s): N40.0 - Benign prostatic hyperplasia without lower urinary tract symptoms Status: Acute Assessment and Plan: Monitor urine output (12) Anemia: Qualifiers: Anemia type: unspecified type Qualified Code(s): D64.9 - Anemia, unspecified Code(s): D64.9 - Anemia, unspecified Status: Chronic Assessment and Plan: Patient with a chronic macrocytic anemia. B12 is normal. MMA was normal few years ago. Hemoglobin stable in the 9-10 range which is chronic for this patient. Follow Subjective Date/time seen: 11/04/22
[2022-11-04 19:26] LABS: Vancomycin Trough 18.2 ug/mL (10.0-20.0)
[2022-11-04 19:49] VITALS: O2SAT 94
[2022-11-04 20:12] VITALS: PULSE 70
[2022-11-04] MEDS: ATORVASTATIN 20 MG TABLET PO (20:12)
[2022-11-04] MEDS: DOXAZOSIN MESYLATE 4 MG TABLET PO (20:15)
[2022-11-04 21:45] VITALS: BP 100/53; PULSE 80; RESP 20; TEMP 36.4; O2SAT 92
[2022-11-05 05:25] VITALS: BP 111/63; PULSE 99; RESP 22; TEMP 36.6; O2SAT 93
--- NOTE | 2022-11-05 08:48 | PM.PNCARD ---
Progress Note: A&P Assessment and Plan (1) Pulmonary edema: Code(s): J81.1 - Chronic pulmonary edema Status: Acute Assessment and Plan: He is breathing better and stable on room air. (2) Atrial fibrillation: Code(s): I48.91 - Unspecified atrial fibrillation Status: Acute Assessment and Plan: On anticoagulation (3) CHF exacerbation: Code(s): I50.9 - Heart failure, unspecified Status: Acute Assessment and Plan: As detailed below (4) Cardiomyopathy: Code(s): I42.9 - Cardiomyopathy, unspecified Status: Acute Assessment and Plan: Ejection fraction is significantly worse, now 20% where as it was previously 39%. I attempted to discuss this finding and medical recommendations to the patient and family. I was told that the patient does not wish to be followed by the cardiology service at this hospital because he follows with Dr. Fermin at [place] and does not want anybody else to manage his cardiology care. I explained that possible Bi V ICD upgrade, an ischemic evaluation, and changes to his medical regimen would be recommended. However, since patient is refusing cardiology care at this facility, we will sign off and recommend close follow-up with his primary outsole handler at [place]. (5) Acute on chronic systolic (congestive) heart failure: Code(s): I50.23 - Acute on chronic systolic (congestive) heart failure Status: Acute Assessment and Plan: Continue beta-flo. Continue IV diuresis. Continue to monitor BMP while diuresing. As above, will not make any additions or adjustments to his medical regimen at this time as patient does not wish to have cardiology participate in his care. Subjective Date/time seen: 11/05/22 08:48 Cardiology follow up for Afib, CHF, CMY He feels okay today. No chest pain, shortness of breath, palpitations. He is not overly conversational with me. There are several family members at the bedside. Review of Systems Constitutional: Constitutional: Reports no additional constitutional complaints Eyes: Eyes: Reports no additional eye complaints ENT: Reports system reviewed and no additional complaints, except as documented Cardiovascular: Cardiovascular: Reports no additional cardiovascular complaints and Reports dyspnea Respiratory: Respiratory: Reports dyspnea Gastrointestinal: Gastrointestinal: Reports as per HPI Musculoskeletal: Musculoskeletal: Reports no additional musculoskeletal complaints Neurologic: Reports system reviewed and no additional complaints, except as documented Endocrine: Endocrine: Reports no additional endocrine complaints Hematologic/Lymphatic: Hematologic/Lymphatic: Reports no additional hematologic/lymphatic complaints Allergic/Immunologic: Allergic/Immunologic: Reports no additional allergic/immunologic complaints Exam Const: General: comfortable and no acute distress Other: very pleasant somewhat frail looking elderly man resting comfortably flat in bed room air no distress HENMT: Mouth: Yes moist mucous membranes Eyes: Sclera: sclerae normal Pupils: Equal, round and reactive pupils present Neck: Neck: supple and no JVD Other: normal carotid pulses bilaterally Resp: Effort & Inspection: normal respiratory effort Auscultation: clear to auscultation bilaterally Cardio: Rhythm: regular rhythm Heart sounds: Murmur heart sound present systolic GI: Auscultation: normal bowel sounds Skin: General skin exam: normal color Neuro: Cranial nerves: Yes Equal, round and reactive pupils present Other: alert and oriented x3 normal cognition Extrem: Other: warm and well perfused, no edema Objective Data Vital Signs Vital Signs: Vital Signs - 24 hr 11/04/22 14:00 11/04/22 19:49 11/04/22 20:12 Temperature 36.5 C Pulse Rate 70 70 Respiratory Rate 16 Blood Pressure 94/61 L Pulse Oximetry 92 94 Oxygen Delivery Room Air 11/04/22 21:4
[2022-11-05 09:02] VITALS: PULSE 120
[2022-11-05] MEDS: carvediloL 12.5 MG TABLET PO (09:02)
[2022-11-05] MEDS: FERROUS SULFATE 324 MG TABLET PO (09:03)
[2022-11-05] MEDS: guaiFENesin 12 HR 600 MG TABCR PO (09:03)
[2022-11-05] MEDS: FAMOTIDINE 20 MG TABLET PO (09:03)
[2022-11-05] MEDS: FUROSEMIDE INJ 40 MG/4 ML VIAL 20 MG IV PUSH (09:04)
[2022-11-05] MEDS: APIXABAN 5 MG TABLET BY MOUTH (09:04)
[2022-11-05 14:00] VITALS: BP 101/59; PULSE 77; RESP 16; TEMP 36.6; O2SAT 95
[2022-11-05 14:52] LABS: Anion Gap 6 mmol/L (8-16); Blood Urea Nitrogen 27 mg/dL (9-20); Calcium 8.3 mg/dL (8.4-10.2); Carbon Dioxide 28 mmol/L (22-30); Chloride 101 mmol/L (98-107); Estimated CRCL calculation 32 ml/min; Estimated Glomerular Filt Rate 48; Glucose 124 mg/dL (65-110); Potassium 3.9 mmol/L (3.4-5.0); Sodium 135 mmol/L (137-145)
--- NOTE | 2022-11-05 16:25 | PM.DS ---
DS: Admitting Diagnosis Discharge Date 11/05/22 Admitting Diagnosis Shortness of breath DS: Discharge Diagnosis Discharge Diagnosis (1) Acute on chronic systolic (congestive) heart failure: Code(s): I50.23 - Acute on chronic systolic (congestive) heart failure Status: Acute (2) Pneumonia: Qualifiers: Pneumonia type: due to unspecified organism Laterality: bilateral Lung location: unspecified part of lung Qualified Code(s): J18.9 - Pneumonia, unspecified organism Code(s): J18.9 - Pneumonia, unspecified organism Status: Suspected (3) Acute respiratory failure with hypoxia: Code(s): J96.01 - Acute respiratory failure with hypoxia Status: Acute (4) Debility, unspecified: Code(s): R53.81 - Other malaise Status: Acute (5) Atrial fibrillation: Code(s): I48.91 - Unspecified atrial fibrillation Status: Acute (6) History of CVA (cerebrovascular accident): Code(s): Z86.73 - Personal history of transient ischemic attack (TIA), and cerebral infarction without residual deficits Status: Acute (7) HTN (hypertension), benign: Code(s): I10 - Essential (primary) hypertension Status: Acute (8) Dysphagia: Code(s): R13.10 - Dysphagia, unspecified Status: Acute (9) Stage III chronic kidney disease: Code(s): N18.3 - Chronic kidney disease, stage 3 (moderate) Status: Acute (10) Hyperlipidemia: Code(s): E78.5 - Hyperlipidemia, unspecified Status: Acute (11) BPH (benign prostatic hyperplasia): Code(s): N40.0 - Benign prostatic hyperplasia without lower urinary tract symptoms Status: Acute (12) Anemia: Qualifiers: Anemia type: unspecified type Qualified Code(s): D64.9 - Anemia, unspecified Code(s): D64.9 - Anemia, unspecified Status: Chronic DS: Summary Hospital Course Reason for hospitalization: 87yo male with AFib, HTN, CHF and hx of CVA here for shortness of breath. Please see H&P for details. Hospital Course: Patient presents with SOB. CTA negative for PE but shows diffuse lung disease. He was started on IV Lasix. Echo showing EF 20-25% with indeterminate diastolic function. Appreciate Cardiology input. We continued Coreg. Allergy to ACEI. Not on ARB for unclear reasons. Cr stable at 1.3. Patient made NPO for possible ischemic testing tomorrow but patient refused any evaluation here. He plans to follow up with his Cardiologists after discharge. Patient has pulmonary edema less likely pneumonia. Patient has history of dysphagia in the past but did well with the MBS. He was treated with antibiotics. CXR reviewed and now improving. EKG confirmed AFib. Probably chronic. He remained rate controlled. Pacemaker is in place. We continued Eliquis. He overall did well and was able to be discharged home on 11/05/22. Status at Discharge Cognitive/behavioral status at discharge: Stable. Time Spent with Patient Time attestation: Total time spent providing and/or coordinating discharge services: 35 minutes Time spent: Greater than 30 minutes Exam Narrative: AF 97.9 101/59 77 16 95% ra Gen - NARD lying almost flat in bed Chest - left basilar crackles o/w clear, nml RR CV - irregularly irregular. nml rate Abd - Soft, NT/ND, Positive BS Ext - No pedal edema Psych - Nml mood and affect. Neuro - Dysarthric speech. right hemiparesis Skin - Warm and dry DS: Data Data Completed and Pending Labs on day of discharge: Labs from last 24 hours 11/05/22 11/04/22 14:21 18:49 Sodium 135 L Potassium 3.9 Chloride 101 Carbon Dioxide 28 Anion Gap 6 L BUN 27 H Creatinine 1.40 H Estim Creat Clear Calc 32 Estimated GFR 48 L Glucose 124 H Calcium 8.3 L Vancomycin Trough 18.2 Preliminary micro results at discharge 11/01/22 19:18 Blood Culture - Preliminary Blood 11/01/22 19:18 Blood Culture - Preliminary Blood
[2022-11-05 16:54] LABS: Pneumococcal Antigen Urine Not Detected (Not Detected)
== END 2022-11-05 17:50 | disposition home health service (06) | DRG 291 ==
LOC: ANHED 21:02 → ANH3MEDSUR 21:27
PROVIDERS: Emergency Medicine; Admitting Provider Internal Medicine; Emergency Provider Emergency Medicine; PCP Internal Medicine; Visit Provider Internal Medicine
DX: I13.0 Hypertensive heart and chronic kidney disease with heart failure and stage 1 through stage 4 chronic kidney disease, or unspecified chronic kidney disease (principal); I50.23 Acute on chronic systolic (congestive) heart failure; J96.01 Acute respiratory failure with hypoxia; I69.351 Hemiplegia and hemiparesis following cerebral infarction affecting right dominant side; N18.30 Chronic kidney disease, stage 3 unspecified; I48.91 Unspecified atrial fibrillation; Z79.01 Long term (current) use of anticoagulants; N40.1 Benign prostatic hyperplasia with lower urinary tract symptoms; I42.9 Cardiomyopathy, unspecified; I25.10 Atherosclerotic heart disease of native coronary artery without angina pectoris; I25.2 Old myocardial infarction; E78.2 Mixed hyperlipidemia; G47.33 Obstructive sleep apnea (adult) (pediatric); R13.10 Dysphagia, unspecified; D63.1 Anemia in chronic kidney disease; Z20.822 Contact with and (suspected) exposure to COVID-19; Z86.16 Personal history of COVID-19; Z95.5 Presence of coronary angioplasty implant and graft; Z95.1 Presence of aortocoronary bypass graft; Z95.0 Presence of cardiac pacemaker; Z82.49 Family history of ischemic heart disease and other diseases of the circulatory system; Z87.891 Personal history of nicotine dependence; Z88.8 Allergy status to other drugs, medicaments and biological substances
CPT/HCPCS: 36415; 36600; 71045; 71046; 71275; 80048; 80053; 80069; 80202; 82375; 82805; 83050; 83605; 83735; 84145; 84484; 85025; 85610; 87040; 87637; 87899; 92610; 92611; 93005; 93306; 96365; 96366; 96367; 96375; 96376; 97161; 97165; 97530; 97535; 99285; A9270; G0378; J0692; J1940; J3370; Q9967

== ENCOUNTER 2022-12-04 13:05 | Emergency (ER) | payer MEDICARE, SELFPAY ==
[2022-12-04] VITALS (17 sets, daily range): BP systolic 111–145; BP diastolic 66–83; PULSE 82–102; RESP 12–28; O2SAT 84–100
--- NOTE | ~2022-12-04 | CT_ITS ---
EXAMINATION: CT cervical spine wo con DATE: 12/04/2022 13:42 INDICATION: Head injury. TECHNIQUE: Computed tomography (CT) of the cervical spine was performed without intravenous contrast. Automated exposure control and iterative reconstruction technique were employed. The dose-length pro duct was 180.84 mGy-cm. COMPARISON: None FINDINGS: There is a right pleural effusion. There is 9 degrees dextrocurvature of cervical spine. Ve rtebral body heights are normal. There is moderately decreased disc height at C4-C5 and severely decr eased disc height at C5-C6 and C6-C7. The following disc levels are specifically discussed: C2-C3: There is no uncovertebral joint osteoarthritis. There is mild right and severe left facet join t osteoarthritis. There is mild left neural foraminal stenosis. There is no central canal stenosis. C3-C4: There is mild bilateral uncovertebral joint osteoarthritis. There is mild bilateral facet join t osteoarthritis. There is mild bilateral neural foraminal stenosis. There is mild central canal sten osis. C4-C5: There is severe right and mild left uncovertebral joint osteoarthritis. There is mild right an d severe left facet joint osteoarthritis. There is moderate bilateral neural foraminal stenosis. Ther e is mild central canal stenosis. C5-C6: There is severe bilateral uncovertebral joint osteoarthritis. There is mild bilateral facet baldev int osteoarthritis. There is moderate bilateral neural foraminal stenosis. There is mild central sobia l stenosis. C6-C7: There is severe bilateral uncovertebral joint osteoarthritis. There is moderate bilateral face t joint osteoarthritis. There is moderate right and mild left neural foraminal stenosis. There is mil d central canal stenosis. C7-T1: There is no uncovertebral joint osteoarthritis. There is severe bilateral facet joint osteoart hritis. There is mild bilateral neural foraminal stenosis. There is no central canal stenosis. IMPRESSION: 1. No fracture. 2. Severe cervical spondylosis. Reviewed, dictated and finalized at location A.
--- NOTE | ~2022-12-04 | XR_ITS ---
EXAMINATION: XR wrist RT min 3V DATE: 12/04/2022 14:02 INDICATION: Generalized right wrist pain and swelling post fall TECHNIQUE: Posteroanterior, ulnar deviation, oblique, and lateral views of the right wrist were obtai darius. COMPARISON: none FINDINGS: There is marked diffuse osteopenia which decreases sensitivity for nondisplaced fracture. Bone alignm ent is normal. No fracture identified. Polyarticular osteoarthritis, severe at the first carpometacar pal and first interphalangeal joints and mild at the distal radioulnar, wrist, triscaphe and the meta carpophalangeal joints. IMPRESSION: 1. No evident fracture although sensitivity for nondisplaced fractures decreased by marked osteopenia . 2. Polyarticular osteoarthritis, severe at the first carpometacarpal and interphalangeal joints. Reviewed, dictated and finalized at location A. IMPRESSION: 1. No evident fracture although sensitivity for nondisplaced fractures decrease d by marked osteopenia. 2. Polyarticular osteoarthritis, severe at the first carpometacarpal and interp halangeal joints.
--- NOTE | ~2022-12-04 | XR_ITS ---
EXAM: XR knee RT min 4V DATE: 12/04/2022 14:00 HISTORY: pain Rt knee s/p fall . COMPARISON: None available. FINDINGS: Decreased mineralization. Slight anterior translation of the femoral condyles relative to the tibial plateau and the lateral view. No fracture or coleen dislocation. No lytic or blastic lesion . Tricompartmental right knee osteoarthritis. No erosion or periosteal change. Vascular calcification s. Medial leg vascular clips. Small volume knee joint fluid. IMPRESSION: Possible anterior joint laxity which may reflect anterior cruciate ligament injury. No ac ekwok osseous finding in the right knee. Small right knee joint effusion. Reviewed, dictated and finalized at location K. IMPRESSION: Possible anterior joint laxity which may reflect anterior cruciate ligament injury. No acute osseous finding in the right knee. Small right knee j oint effusion.
--- NOTE | ~2022-12-04 | CT_ITS ---
EXAMINATION: CT brain wo con DATE: 12/04/2022 13:42 INDICATION: fall/eliquis . TECHNIQUE: Computed tomography (CT) of the head was performed without intravenous contrast. The mA wa s adjusted according to patient size. Iterative reconstruction technique was employed. The dose-lengt h product was 681.00 mGy-cm. COMPARISON: 12/02/2019. FINDINGS: No acute intracranial hemorrhage or extra-axial fluid collection. No hydrocephalus, mass, or herniation. No acute ischemic infarct. Unremarkable dural venous sinus attenuation. No acute osseous abnormality. Right frontal soft tissue contusion. Right mastoid fluid without erosion, inferior left maxillary retention cyst/polyp, the remaining aera matilde spaces are clear. Mild atrophy and moderate chronic white matter change. Atherosclerotic intracranial calcification. Le ft posterior frontal and parietal encephalomalacia. Bilateral lens replacements. IMPRESSION: No acute intracranial process. Reviewed, dictated and finalized at location K.
--- NOTE | ~2022-12-04 | XR_ITS ---
EXAMINATION: XR chest 2V Exam Date/Time: 12/04/2022 13:42 CDT HISTORY: fall; hx of HTN, A fib, CKD Comparison: 11/04/2022. RESULT: Lines, tubes, and devices: Intact sternotomy wires. Right chest pacer with intact lead. Lungs and pleura: Segmental left mid and subsegmental right mid lung airspace disease. Diffuse retic ular opacities. Bilateral costophrenic angle blunting. Cardiomediastinal silhouette: Stable. Other: No acute osseous or upper abdominal finding. IMPRESSION: Pulmonary opacities may represent pneumonia and/or pulmonary edema. Small bilateral pleural effusions . Reviewed, dictated and finalized at location K. IMPRESSION: Pulmonary opacities may represent pneumonia and/or pulmonary edema. Small bilat eral pleural effusions.
--- NOTE | 2022-12-04 13:11 | ECG_ITS ---
Measurements Intervals [place] Rate: 80 P: SD: 0 QRS: -11 QRSD: 184 T: 165 QT: 443 QTc: 513 Interpretive Statements ELECTRONIC VENTRICULAR PACEMAKER ATYPICAL ECG COMPARED TO ECG 11/01/2022 15:18:20 NO SIGNIFICANT CHANGES Electronically Signed On 12-05-2022 13:38:42 CDT by Ming Newell M.D.
--- NOTE | 2022-12-04 13:36 | ED.HEATRA ---
HPI - Head Injury General Chief complaint: Head Injury Stated complaint: glf, abn ekg Time Seen by Provider: 12/04/22 13:16 Source: patient, family, EMS, RN notes reviewed and old records reviewed Mode of arrival: EMS Limitations: no limitations History of Present Illness HPI Narrative: This is an 87 year old male with history of CVA with residual right side deficits, CHF, defibulator who presents for evaluation of head injury after a fall. Patient's is at bedside. She states patient was walking into room try to bring her something and he fell. She states he did not have loss of consciousness. Patient states he is not sure why he fell. He fell foward and he hit his head. He complains of right knee pain and right wrist pain. He states his right wrist may hurt due to his previous stroke. He denies dizziness, nausea, vomiting or headache. He takes eliquis for chronic anticoagulation. He denies chest pain or shortness of breath. Complaint: head injury Related Data Home Medications Medication Instructions Recorded Confirmed garlic 300 mg PO DAILY 07/17/19 12/03/22 omega-3 fatty acids 500 mg PO DAILY 11/15/20 12/03/22 apixaban 2.5 mg tablet (Eliquis) 5 mg PO BID 09/27/22 12/03/22 doxazosin 8 mg tablet 8 mg PO HS 12/03/22 12/03/22 Allergies Allergy/AdvReac Type Severity Reaction Status Date / Time DEEPIKA Inhibitors Allergy Unknown Verified 12/03/22 10:14 Review of Systems Constitutional: Constitutional: Denies weakness Cardiovascular: Cardiovascular: Denies syncope, Denies rapid heart rate, Denies irregular heart rhythm, Denies leg edema and Denies dyspnea Respiratory: Respiratory: Denies chest congestion, Denies hemoptysis, Denies excessive phlegm production and Denies dyspnea Gastrointestinal: Gastrointestinal: Denies abdominal pain, Denies hematochezia, Denies diarrhea and Denies vomiting Genitourinary: Genitourinary: Denies hematuria, Denies dysuria, Denies penile discharge and Denies testicular pain Musculoskeletal: Musculoskeletal: Reports arthralgias, Denies joint swelling, Denies loss of height and Reports muscle weakness Neurologic: Denies syncope, Denies focal weakness and Denies weakness PMFSH Past Medical History Medical History Anemia Chronic macrocytic anemia. Benign prostatic hyperplasia Chronic combined systolic and diastolic congestive heart failure Echocardiogram in January 2020 showed severely reduced left ventricular systolic function with an ejection fraction of 30 to 35% and abnormal diastolic function. Coronary artery disease History of myocardial infarction, status post CABG. COVID-19 (~08/2020) Current use of residential anticoagulation History of GI bleed History of rib fracture Hypertension Intermittent palpitations Iron deficiency anemia Left bundle branch block Mixed hyperlipidemia Obstructive sleep apnea Pacemaker Persistent atrial fibrillation Prediabetes Psoriasis Stage 3 chronic kidney disease Baseline creatinine between 1.3 and 1.70. Vitamin B12 deficiency Surgical History Surgical History History of cardiac catheterization (~07/2016) PTCA and stent placement in SVG where it anastomosis to RCA. History of inguinal hernia repair Status post coronary artery bypass grafts x 5 (~1992) Family History Family History Father Diabetes mellitus Acute myocardial infarction Sibling Coronary artery disease Mother Diabetes mellitus Chronic kidney disease Social History Social History Social History: The patient is but remarried within the last 5 years or so. He lives in [place] and has 4 grown children. He smoked remotely when he was young man. No alcohol or illicit substance abuse. Smoking status: Former smoker Second hand tobacco smoke expo
[2022-12-04 15:02] LABS: Basophils Percent Auto 0.6 % (0.2-1.2); Eosinophils Absolute Auto 0.4 K/mm3 (0-0.3); Hematocrit 28.8 % (42.0-52.0); Hemoglobin 9.4 g/dL (14.0-18.0); Immature Granulocyte Absolute 0.03 K/mm3 (0.00-0.031); Immature Granulocyte Percent A 0.4 % (0-0.5); Lymphocytes Absolute Auto 1.61 K/mm3 (0.9-3.2); Lymphocytes Percent Auto 22.5 % (18.3-44.2); Mean Corpuscular HGB Conc 32.6 g/dl (32-36); Mean Corpuscular Volume 110.3 fl (80-100); Mean Platelet Volume 10.5 fl (7.4-10.4); Monocytes Absolute Auto 0.5 K/mm3 (0.1-0.6); Monocytes Percent Auto 7.3 % (2.6-8.5); Neutrophils Absolute Auto 4.5 K/mm3 (1.3-6.7); Neutrophils Percent Auto 63.2 % (45.5-73.1); Platelet Count Result 140 k/mm3 (150-375); Red Blood Count 2.61 M/mm3 (4.6-6.20); Red Cell Distribution Width 16.2 % (11.5-14.5); White Blood Count 7.2 K/mm3 (4.5-10.0)
[2022-12-04 15:10] LABS: INR 1.5; Prothrombin Time 17.6 Seconds (11.1-14.7)
[2022-12-04 15:12] LABS: Alanine Aminotransferase 19 U/L (6-50); Albumin Level 3.5 g/dL (3.5-5.1); Alkaline Phosphatase 123 U/L (38-126); Anion Gap 4 mmol/L (8-16); Aspartate Amino Transferase 30 U/L (17-59); Bilirubin,Total 0.7 mg/dL (0.2-1.3); Blood Urea Nitrogen 22 mg/dL (9-20); Calcium 8.5 mg/dL (8.4-10.2); Carbon Dioxide 30 mmol/L (22-30); Chloride 103 mmol/L (98-107); Estimated CRCL calculation 30 ml/min; Estimated Glomerular Filt Rate 44; Glucose 114 mg/dL (65-110); Lipase 67 U/L (23-300); Partial Thromboplastin Time 41.8 SECONDS (22.3-36.8); Potassium 4.4 mmol/L (3.4-5.0); Sodium 137 mmol/L (137-145)
[2022-12-04 15:20] LABS: NT Pro B Type Natriuretic Pept 4050 pg/mL (19.9-100)
[2022-12-04 15:22] LABS: Macrocytosis 1+ (NORMAL); Schistocytes None Seen (NORMAL)
--- NOTE | 2022-12-04 16:15 | PC.NURSE ---
pt amb with walker from room 10 to room 9 and back. pt has slow steady gait. tachypnea noted.
[2022-12-04 16:23] LABS: Appearance Urine Clear (Clear); Bilirubin Urine Negative (Negative); Blood Urine Negative (Negative); Color Urine Yellow (Yellow); Glucose Urine UA Negative (Negative); Ketones Urine Negative (Negative); Leukocyte Esterase Ur Negative LEU/UL (Negative); Nitrate Urine Negative (Negative); Protein Urine Negative (Negative); Specific Grav Ur 1.007 (1.001-1.035); Urobilinogen Urine 0.2 mg/dL (<2.0)
[2022-12-04 16:24] LABS: Add Urine Microscopic? NO
== END 2022-12-04 16:35 | disposition home or self-care (01) ==
PROVIDERS: Emergency Medicine; Emergency Provider General Practice; PCP Internal Medicine
DX: S09.90XA Unspecified injury of head, initial encounter (principal); M25.561 Pain in right knee; M25.531 Pain in right wrist; W19.XXXA Unspecified fall, initial encounter; I13.0 Hypertensive heart and chronic kidney disease with heart failure and stage 1 through stage 4 chronic kidney disease, or unspecified chronic kidney disease; I69.351 Hemiplegia and hemiparesis following cerebral infarction affecting right dominant side; I50.9 Heart failure, unspecified; I25.10 Atherosclerotic heart disease of native coronary artery without angina pectoris; I25.2 Old myocardial infarction; I50.42 Chronic combined systolic (congestive) and diastolic (congestive) heart failure; D50.9 Iron deficiency anemia, unspecified; E78.2 Mixed hyperlipidemia; G47.33 Obstructive sleep apnea (adult) (pediatric); I48.19 Other persistent atrial fibrillation; N18.30 Chronic kidney disease, stage 3 unspecified; R73.03 Prediabetes; E53.8 Deficiency of other specified B group vitamins; N40.0 Benign prostatic hyperplasia without lower urinary tract symptoms; Z95.810 Presence of automatic (implantable) cardiac defibrillator; Z79.01 Long term (current) use of anticoagulants; Z95.1 Presence of aortocoronary bypass graft; Z95.5 Presence of coronary angioplasty implant and graft
CPT/HCPCS: 36415; 70450; 71046; 72125; 73110; 73564; 80053; 81003; 83690; 83880; 85025; 85610; 85730; 93005; 99284

== ENCOUNTER 2023-03-19 16:50 | Outpatient (CLI) | payer MEDICARE, SELFPAY ==
--- NOTE | ~2023-03-19 | XR_ITS ---
EXAMINATION: XR chest 2V Exam Date/Time: 03/19/2023 17:15 CDT HISTORY: R50.9 - Fever, unspecified, STROKE 2019 Comparison: 12/04/2022. RESULT: Lines, tubes, and devices: Intact sternotomy wires. Right chest pacer with intact lead. Lungs and pleura: Bilateral costophrenic angle blunting. Diffuse reticular opacities with indistinct vessels. No focal consolidation. Cardiomediastinal silhouette: Stable cardiac megaly. Other: No acute osseous or upper abdominal finding. IMPRESSION: Pulmonary opacities most likely represent moderate pulmonary edema with small bilateral effusions. Reviewed, dictated and finalized at location K. IMPRESSION: Pulmonary opacities most likely represent moderate pulmonary edema with small b ilateral effusions.
[2023-03-19 18:00] LABS: Appearance Urine Turbid (Clear); Bacteria Urine 4+ /hpf; Bilirubin Urine Negative (Negative); Blood Urine 3+ (Negative); Color Urine Yellow (Yellow); Glucose Urine UA 3+ mg/dL (Negative); Ketones Urine Negative (Negative); Leukocyte Esterase Ur 2+ LEU/UL (NEGATIVE); Need Manual Microscopic Reviewed; Nitrate Urine Negative (Negative); Protein Urine 1+ mg/dL (Negative); Specific Grav Ur 1.019 (1.001-1.035); Squamous Epithelial Cell Urine None seen /hpf (Few); WBC Urine >100 /hpf (0-3)
[2023-03-19 18:11] LABS: Add Urine Microscopic? YES
== END 2023-03-19 16:51 | disposition home or self-care (01) ==
PROVIDERS: PCP Internal Medicine; Visit Provider Nurse Practitioner Family
DX: R50.9 Fever, unspecified (principal); R39.9 Unspecified symptoms and signs involving the genitourinary system; R91.8 Other nonspecific abnormal finding of lung field
CPT/HCPCS: 71046; 81001; 87077; 87086; 87186

== ENCOUNTER 2023-08-16 15:48 | Outpatient (CLI) | payer MEDICARE, SELFPAY ==
[2023-08-16 16:23] LABS: Basophils Percent Auto 0.3 % (0.2-1.2); Eosinophils Absolute Auto 0.3 K/mm3 (0-0.3); Eosinophils Percent Auto 5.1 % (0-4.4); Immature Granulocyte Absolute 0.01 K/mm3 (0.00-0.031); Immature Granulocyte Percent A 0.2 % (0-0.5); Lymphocytes Absolute Auto 2.33 K/mm3 (0.9-3.2); Lymphocytes Percent Auto 38.6 % (18.3-44.2); Mean Corpuscular HGB Conc 32.4 g/dl (32-36); Mean Corpuscular Hemoglobin 35.9 pg (26-34); Mean Corpuscular Volume 111.1 fl (80-100); Mean Platelet Volume 10.6 fl (7.4-10.4); Monocytes Absolute Auto 0.4 K/mm3 (0.1-0.6); Monocytes Percent Auto 7.1 % (2.6-8.5); Neutrophils Absolute Auto 2.9 K/mm3 (1.3-6.7); Neutrophils Percent Auto 48.7 % (45.5-73.1); Platelet Count Result 166 k/mm3 (150-375); Red Blood Count 3.06 M/mm3 (4.6-6.20); Red Cell Distribution Width 16.3 % (11.5-14.5)
[2023-08-16 16:37] LABS: Alanine Aminotransferase 13 U/L (6-50); Albumin Level 3.9 g/dL (3.5-5.1); Alkaline Phosphatase 131 U/L (38-126); Anion Gap 7 mmol/L (8-16); Aspartate Amino Transferase 29 U/L (17-59); Bilirubin,Total 0.9 mg/dL (0.2-1.3); Blood Urea Nitrogen 29 mg/dL (9-20); Calcium 9.1 mg/dL (8.4-10.2); Carbon Dioxide 29 mmol/L (22-30); Chloride 101 mmol/L (98-107); Estimated Glomerular Filt Rate 44; Glucose 111 mg/dL (65-110); Potassium 3.4 mmol/L (3.4-5.0); Sodium 137 mmol/L (137-145)
[2023-08-16 16:58] LABS: Macrocytosis 1+ (NORMAL); Platelet Estimate Adequate (Adequate); Schistocytes None Seen (NORMAL)
[2023-08-16 16:59] LABS: Anisocytosis 2+ (NORMAL)
[2023-08-16 17:20] LABS: Iron 75 ug/dL (49-181)
[2023-08-16 17:30] LABS: Percent Iron Saturation 37 % (20-50)
[2023-08-16 17:59] LABS: IFOB Positive Control Positive; Immunochemical Fecal Occult Bl Negative (N)
== END 2023-08-16 15:49 | disposition home or self-care (01) ==
PROVIDERS: PCP Nurse Practitioner Family; Visit Provider Nurse Practitioner Family
DX: D50.9 Iron deficiency anemia, unspecified (principal); D64.9 Anemia, unspecified; I10 Essential (primary) hypertension; I48.91 Unspecified atrial fibrillation; I69.351 Hemiplegia and hemiparesis following cerebral infarction affecting right dominant side; Z79.01 Long term (current) use of anticoagulants; Z87.19 Personal history of other diseases of the digestive system
CPT/HCPCS: 36415; 80053; 82274; 83540; 83550; 85025

== ENCOUNTER 2023-09-05 15:30 | Outpatient (RCR) | payer MEDICARE, SELFPAY ==
--- NOTE | 2023-08-02 14:27 | OPREHPOC ---
Outpatient Therapy Plan of Care This is a Multidisciplinary Plan of Care that may contain components documented by all disciplines (PT, OT, and ST.) PT Problem 1 PT Problem #1 Knowledge Deficit PT Goal 1 Goal * indep with HEP PT Problem 2 PT Problem #2 Pain PT Goal 1 Goal *monitor R knee pain with progression of activity PT Problem 3 PT Problem #3 Impaired Strength PT Goal 1 Goal 1* pt perform R LE supine exercises x 15 reps PT Problem 4 PT Problem #4 Impaired Functional Mobil PT Goal 1 Goal 1* sit to stand from 18 seat indep, with use of both UE on armrests of chair 2* 2 minute walking test distance of 225' 3* pt ambulate with cane and R knee brace, indep on level surface
--- NOTE | 2023-08-02 14:27 | PTOPEVAL1 ---
Assessment and note entered by Tessa Rosales, PT Evaluation Information Assessment Status Evaluation Diagnosis R hip fracture with ORIF Onset December 2022 Subjective Information after surgery, went to [facility] and [facility] therapy; completed HHC; is continuing to do the sitting leg exercises; use the 4 wheeled walker with bilateral platform in the home, have motorized scooter for distances; problems holding onto regular walker with R hand due to CVA weakness and slipped off walker; have a knee brace for support due to knee giving out did not bring in today HOME: pt lives with daughter and other daughter helps when she is at work--someone is always with him. requires help with bathing, dressing and home tasks; GOAL: want to get R knee better and straightened out; get back to using the cane again; prior to fall- used the cane for walking Reported Pain Level Pain Score Self Report Additional Pain Score Comments pain range of R knee pain 0-10/10; anterior knee; increase with moving knee; have a knee brace, but did not bring in today--it helps Assessment PT Clinical Summary Armen has the diagnosis of R femur fracture with ORIF, s/p fall. He lives with family and they assist him. He had in [facility] rehab and HHC services. He reports R knee has given him pain since the ORIF. Prior to fall, he used a cane for mobility. The ortho dr has released him; the therapy orders are from his neurologist. Daughter Geeta was present during eval and supportive to pt. With the evaluation: he reports R knee pain with knee extension and supine leg motions; weakness of R leg; sit to stand from 18 seat requires min assist one; 2 minute walking test distance with platform wheeled walker was 150'; Tinetti balance score of 12/28; Skilled PT services are indicated for therapeutic exercises to increase R LE strength, transfer, gait and mobility skills,
--- NOTE | 2023-08-23 11:46 | PCPTNOTE ---
pt reeval cx due to him falling and going to get checked out; will reschedule appt.
--- NOTE | 2023-09-05 16:20 | PTOPDC ---
Assessment and note entered by Tessa Rosales, PT Evaluation Information Assessment Status Discharge Diagnosis R hip fracture with ORIF Onset December 2022 Subjective Information have had 2 recent falls-- rolled out of bed, walking & lost his balance, hit R shoulder on wall and slidd down-- R clavice fracture; sling on R arm, removes with sleeping; Reported Pain Level Pain Score 0: Self Report Additional Pain Score Comments pain in R knee no increase with walking, with brace on knee; knee just gives out on him, but not painful R shoulder pain due to recent clavicle fractre- sling intact; educated on position of shoulder with pillows with sleeping in recliner- support to arm; Assessment PT Clinical Summary Armen has received 6 PT sessions, Since attending PT he has had 2 falls--the recent fall with R clavicle fracture with sling; R knee continues to give out on him. Compared to the initial evaluation, he has declined with 2 minute walking from 150' to 100'; decreased ability for sit to stand transfer; At home, his family assist him with mobility, walking, in/out chair with lift recliner; they are helping him with HEP. Discussed C therapy due to labored and increase pain with getting in/ out car and to therapy dept. They stated they would continue with exercises and walking at home. Family has been helping and comfortable with it. The goals were not met, except education for HEP and gait pattern. Discharge PT. Did discuss with them, can obtain a new order when shoulder is better and weather is not as cold for him to get out, with cold and flu season. Plan of Care PT Services Indicated No
== END 2023-09-06 16:26 | disposition home or self-care (01) ==
LOC: ANHPT 15:30
PROVIDERS: PCP Nurse Practitioner Family
DX: I63.9 Cerebral infarction, unspecified (principal); I69.359 Hemiplegia and hemiparesis following cerebral infarction affecting unspecified side; I69.320 Aphasia following cerebral infarction; S72.91XD Unspecified fracture of right femur, subsequent encounter for closed fracture with routine healing; Z95.0 Presence of cardiac pacemaker
CPT/HCPCS: 97110; 97116; 97161; 97530

== ENCOUNTER 2024-01-24 13:51 | Outpatient (CLI) | payer MEDICARE, SELFPAY ==
--- NOTE | ~2024-01-24 | XR_ITS ---
EXAMINATION: XR barium swallow DATE: 01/24/2024 14:24 INDICATION: Dysphagia, unspecified. TECHNIQUE: The patient drank thick barium, gas-producing crystals, and thin barium. Fluoroscopy of th e hypopharynx and esophagus was performed. Fluoroscopy exposure time was 0.8 minutes. The total numbe r of images was 522. The dose-area product was 2.027 Gy-cm^2. COMPARISON: None. FINDINGS: There is no mass or stricture of the esophagus. There is normal primary and secondary esoph ageal peristalsis. Abnormal tertiary waves are noted. There is no hiatal hernia. Median sternotomy wi res are noted. There is a right chest pacer with lead in right ventricle. IMPRESSION: 1. Mild esophageal dysmotility. Reviewed, dictated and finalized at location A.
== END 2024-01-24 13:52 | disposition home or self-care (01) ==
LOC: ANHIMG 13:52
PROVIDERS: PCP Nurse Practitioner Family; Visit Provider Nurse Practitioner Family
DX: K22.4 Dyskinesia of esophagus (principal)
CPT/HCPCS: 74220

== ENCOUNTER 2024-02-13 14:20 | Outpatient (CLI) | payer MEDICARE, SELFPAY ==
--- NOTE | ~2024-02-13 | XR_ITS ---
XR chest 2V 02/13/2024 14:44 Indication: Shortness of breath. Procedure: AP and lateral views of the chest Comparison: Comparison to multiple prior studies sequentially, with oldest reviewed study dated 12/2022. Findings: Cardiomegaly with interstitial edema. Small pleural effusions. No pneumothorax. There is a mildly displaced right clavicular fracture, new since prior examination. Osteopenia. Pacemaker lead t ip in the right ventricle. Status post median sternotomy for CABG. Impression: 1: Cardiomegaly with mild interstitial edema. 2: Age-indeterminate mildly displaced right clavicular fracture is prior study. Reviewed, dictated and finalized at location B. Impression: 1: Cardiomegaly with mild interstitial edema. 2: Age-indeterminate mildly displaced right clavicular fracture is prior study.
== END 2024-02-13 14:21 | disposition home or self-care (01) ==
PROVIDERS: PCP Nurse Practitioner Family; Visit Provider Nurse Practitioner Family
DX: R06.02 Shortness of breath (principal); I51.7 Cardiomegaly; J81.1 Chronic pulmonary edema
CPT/HCPCS: 71046

== ENCOUNTER 2024-03-11 08:13 | Outpatient (CLI) | payer MEDICARE, SELFPAY ==
--- NOTE | ~2024-03-11 | XR_ITS ---
MODIFIED ESOPHAGRAM HISTORY: Oropharyngeal dysphagia with choking TECHNIQUE: Modified barium esophagram was performed on 03/11/2024. I administered fluoroscopy and perf ormed the exam with speech pathologist. Patient was seated for lateral fluoroscopic imaging for deep stion of thin liquids, pudding, solids and quantified amounts, followed by thin liquids in uncontroll ed amounts. This was recorded on tape. A single fluoroscopic spot image was also recorded. The DAP fo r this procedure was 1.287 Gycm2. The amount of fluoroscopy time used during this procedure was 2.1 m inutes. FINDINGS: Oral stage: Adequate function. Pharyngeal stage: Trace laryngeal penetration without aspiration with uncontrolled thin liquids which mostly cleared with subsequent swallows. Cervical/esophageal stage: Adequate function. IMPRESSION: Trace laryngeal penetration without aspiration with uncontrolled thin liquids. Please co rrelate with speech pathologist findings and specific feeding recommendations. Reviewed, dictated and finalized at location A. IMPRESSION: Trace laryngeal penetration without aspiration with uncontrolled th in liquids. Please correlate with speech pathologist findings and specific fee ding recommendations.
--- NOTE | 2024-03-11 16:32 | REHSTMBS ---
Assessment and note entered by Loli Rahman, SPLICER MACHINE OPERATOR Modified Barium Swallow Evaluation Feeding Type Recommended Oral Food Consistency Minced and Moist, Level 5 Liquid Consistency Thin (0) ST Clinical Summary MODIFIED BARIUM SWALLOW STUDY This patient was seen for a Modified Barium Swallow study at the request of his physician. Patient reports that when he swallows, he feels like there is a blockage and he pointed to his mid-throat area. Patient was accompanied to this evaluation by two daughters who reported that patient coughs and chokes on water frequently. Results and recommendations were discussed with them. Patient was viewed in the lateral position to the level of C5/C6. Patient was presented with a small amount of thin liquid contrast medium per spoon, then uncontrolled thin liquid per cup and per straw, pudding mixed with semi-solid contrast medium, and then cracker coated with the semi- solid contrast medium. He exhibited trace penetration on uncontrolled thin liquid per cup, clearing with the swallows. Given thin liquid per straw, he happened to use head flexion to reach the straw and prevented new penetration on this consistency. He consumed the other consistencies without additional penetration. Results indicate this patient is at mild risk for penetration/aspiration on uncontrolled thin liquids per cup. Use of straw as long as patient is holding it near chest to encourage head flexion may be allowed. He should be encouraged to take small sips and bites. He may benefit from soft and bite-sized or chopped solids as well. Use of thickener may be considered to facilitate prevention of additional penetration but may not be required if patient can avoid coughing using straws/head flexion. Daughters voiced good understanding of recommendations. Thank you for this referral.
== END 2024-03-11 08:14 | disposition home or self-care (01) ==
LOC: ANHIMG 08:16
PROVIDERS: PCP Nurse Practitioner Family; Visit Provider Nurse Practitioner
DX: R13.12 Dysphagia, oropharyngeal phase (principal); T17.320A Food in larynx causing asphyxiation, initial encounter; W44.F3XA Food entering into or through a natural orifice, initial encounter
CPT/HCPCS: 92611